=== PATIENT | female | born 1940 | race Caucasian/White ===

== ENCOUNTER 2016-02-26 16:57 | Inpatient (IN) | payer MEDICARE, BC ==
[2016-02-26] MEDS ORDERED: ASPIRIN 81 MG CHEW PO STA (17:21)
[2016-02-26] MEDS ORDERED: FUROSEMIDE 10 MG/ML 10 ML VIAL IV STA (17:21)
--- NOTE | 2016-02-26 17:30 | ED ---
General Adult HPI - General Chief complaint: Extremity Problem,Nontraumatic Stated complaint: congestive heart failure Time Seen by Provider: 02/26/16 17:15 Source: patient, RN notes reviewed Mode of arrival: EMS Limitations: physical limitation - History of Present Illness Initial comments: 76-year-old female presents to the emergency department with a chief complaint of bilateral lower extremity swelling. Patient has a history of congestive heart failure. Patient has had increased swelling to the bilateral lower extremities as well as the abdomen. Over the last 23 days she has gained about 6-7 pounds. She states that she is chronically short of breath and she does not feel more short of breath than normal. The patient denies any fever or chills. Patient states that she stopped taking her Coumadin but other than that she's been taking all the medications as prescribed. Patient states that she was concerned due to the continued symptoms and the leaking so her doctor came over and referred her to the ER. Patient states that this time she has no chest pain but she did have some earlier today. Patient states that there is no other symptoms in the patient.Patient denies any recent fever, chills,back pain, abdominal pain, nausea vomiting, numbness or tingling, dysuria or hematuria, constipation or diarrhea, headaches or visual changes, or any other current symptoms. - Related Data Allergies Allergy/AdvReac Type Severity Reaction Status Date / Time Penicillins Allergy Anaphylaxis Verified 02/26/16 19:01 Quinolones Allergy Nausea & Verified 02/26/16 19:01 Vomiting quinapril AdvReac Severe Unknown Verified 02/26/16 19:01 Review of Systems ROS Statement: Those systems with pertinent positive or pertinent negative responses have been documented in the HPI. ROS Other: All systems not noted in ROS Statement are negative. Past Medical History Past Medical History: Atrial Fibrillation, Heart Failure, Hyperlipidemia, Hypertension History of Any Multi-Drug Resistant Organisms: None Reported Past Surgical History: Cholecystectomy, Coronary Bypass/CABG, Tonsillectomy Additional Past Surgical History / Comment(s): aortic valve replacement Past Psychological History: No Psychological Hx Reported Smoking Status: Former smoker Past Alcohol Use History: None Reported Past Drug Use History: None Reported General Exam - General Exam Comments Initial Comments: General: The patient is awake and alert, in no distress, and does not appear acutely ill. Eye: Pupils are equal, round and reactive to light, extra-ocular movements are intact; there is normal conjunctiva bilaterally. No signs of icterus. Ears, nose, mouth and throat: There are moist mucous membranes and no oral lesions. Neck: The neck is supple, there is no tenderness. Cardiovascular: There is a regular rate and rhythm. No murmur, rub or gallop is appreciated. Respiratory: Lungs are clear to auscultation, respirations are non-labored, breath sounds are equal. No wheezes, stridor, rales, or rhonchi. Gastrointestinal: Pitting edema to the abdomen, non-distended, non-tender abdomen without masses or organomegaly noted. There is no rebound or guarding present. No CVA tenderness. Bowel sounds are unremarkable. Back: There is no tenderness to palpation in the midline. There is no obvious deformity. No rashes noted. Musculoskeletal: Normal ROM, no tenderness, patient has pitting edema to the bilateral lower x-rays. It is pretty multiple weeping sores. Concern for possible infection to the right lower extremity. Sensation intact. Pulses equal bilaterally 2+. Neurological: CN II-XII intact, There are no obvious motor or sensory deficits. Coordination appears grossly intact. Speech is normal. Skin: Skin is warm and dry and no rashes or lesions are noted. Psychiatric: Cooperative, appropriate mood & affect, normal judgment. 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 Patient was given Lasix here in the emergency department. The patient does appear to be CHF exacerbation. At this time we will admit the patient. We will continue Lasix for the patient. We will continue troponins overnight and place the patient nothing by mouth at midnight. This is discussed with the patient and family and they are in agreement with the plan. All their questions have been answered. This time she will be admitted to Dr. brown the case is discussed with Dr. Sales. - Lab Data Result diagrams: 02/26/16 17:10 02/26/16 17:10 Lab Results 01/02/26/16 02/26/16 Range/Units 17:10 17:10 17:10 WBC 3.9 (3.8-10.6) k/uL RBC 2.75 L (3.80-5.40) m/uL Hgb 8.2 L (11.4-16.0) gm/dL Hct 27.8 L (34.0-46.0) % MCV 101.2 H (80.0-100.0) fL MCH 29.8 (25.0-35.0) pg MCHC 29.5 L (31.0-37.0) g/dL RDW 17.7 H (11.5-15.5) % Plt Count 250 (150-450) k/uL Neutrophils % 70 % Lymphocytes % 15 % Monocytes % 9 % Eosinophils % 3 % Basophils % 1 % Neutrophils # 2.7 (1.3-7.7) k/uL Lymphocytes # 0.6 L (1.0-4.8) k/uL Monocytes # 0.4 (0-1.0) k/uL Eosinophils # 0.1 (0-0.7) k/uL Basophils # 0.1 (0-0.2) k/uL Hypochromasia Moderate Anisocytosis Slight Macrocytosis Moderate PT (9.0-12.0) sec INR (<1.1) APTT (22.0-30.0) sec Sodium 143 (137-145) mmol/L Potassium 5.3 H (3.5-5.1) mmol/L Chloride 110 H (98-107) mmol/L Carbon Dioxide 20 L (22-30) mmol/L Anion Gap 13 mmol/L BUN 30 H (7-17) mg/dL Creatinine 1.37 H (0.52-1.04) mg/dL Est GFR (MDRD) Af Amer 46 (>60 ml/min/1.73 sqM) Est GFR (MDRD) Non-Af 38 (>60 ml/min/1.73 sqM) Glucose 105 H (74-99) mg/dL Calcium 9.6 (8.4-10.2) mg/dL Magnesium 1.8 (1.6-2.3) mg/dL Total Bilirubin 0.9 (0.2-1.3) mg/dL AST 22 (14-36) U/L ALT 29 (9-52) U/L Alkaline Phosphatase 122 (38-126) U/L Total Creatine Kinase 52 (30-135) U/L CK-MB (CK-2) 2.6 H* (0.0-2.4) ng/mL CK-MB (CK-2) Rel Index 5.0 Troponin I 0.012 (0.000-0.034) ng/mL NT-Pro-B Natriuret Pep pg/mL Total Protein 7.6 (6.3-8.2) g/dL Albumin 3.8 (3.5-5.0) g/dL 02/26/16 02/26/16 Range/Units 17:10 17:10 WBC (3.8-10.6) k/uL RBC (3.80-5.40) m/uL Hgb (11.4-16.0) gm/dL Hct (34.0-46.0) % MCV (80.0-100.0) fL MCH (25.0-35.0) pg MCHC (31.0-37.0) g/dL RDW (11.5-15.5) % Plt Count (150-450) k/uL Neutrophils % % Lymphocytes % % Monocytes % % Eosinophils % % Basophils % % Neutrophils # (1.3-7.7) k/uL Lymphocytes # (1.0-4.8) k/uL Monocytes # (0-1.0) k/uL Eosinophils # (0-0.7) k/uL Basophils # (0-0.2) k/uL Hypochromasia Anisocytosis Macrocytosis PT 14.0 H (9.0-12.0) sec INR 1.4 (<1.1) APTT 34.3 H (22.0-30.0) sec Sodium (137-145) mmol/L Potassium (3.5-5.1) mmol/L Chloride (98-107) mmol/L Carbon Dioxide (22-30) mmol/L Anion Gap mmol/L BUN (7-17) mg/dL Creatinine (0.52-1.04) mg/dL Est GFR (MDRD) Af Amer (>60 ml/min/1.73 sqM) Est GFR (MDRD) Non-Af (>60 ml/min/1.73 sqM) Glucose (74-99) mg/dL Calcium (8.4-10.2) mg/dL Magnesium (1.6-2.3) mg/dL Total Bilirubin (0.2-1.3) mg/dL AST (14-36) U/L ALT (9-52) U/L Alkaline Phosphatase (38-126) U/L Total Creatine Kinase (30-135) U/L CK-MB (CK-2) (0.0-2.4) ng/mL CK-MB (CK-2) Rel Index Troponin I (0.000-0.034) ng/mL NT-Pro-B Natriuret Pep 88101 pg/mL Total Protein (6.3-8.2) g/dL Albumin (3.5-5.0) g/dL - Radiology Data Radiology results: report reviewed, image reviewed Disposition Clinical Impression: CHF exacerbation, Chest pain, Hyperkalemia, Elevated serum creatinine Disposition: ADMITTED IP TO THIS [facility] Condition: Stable Time of Disposition: 19:02 Decision Date: 02/26/16 Decision Time: 19:02
[2016-02-26 17:37] LABS: Anisocytosis Slight; Basophils # (A) 0.1 k/uL (0-0.2); Basophils % (A) 1 %; CH 30.7; CHCM 30.6; Eosinophils # (A) 0.1 k/uL (0-0.7); Eosinophils % (A) 3 %; HCT 27.8 % (34.0-46.0); HGB 8.2 gm/dL (11.4-16.0); Hypochromasia Moderate; Luc # (Auto) 0.07; Luc % (Auto) 2; Lymphocytes # (A) 0.6 k/uL (1.0-4.8); Lymphocytes % (A) 15 %; MCH 29.8 pg (25.0-35.0); MCHC 29.5 g/dL (31.0-37.0); MCV 101.2 fL (80.0-100.0); Macrocytosis Moderate; Monocytes # (A) 0.4 k/uL (0-1.0); Monocytes % (A) 9 %; Neutrophils # (A) 2.7 k/uL (1.3-7.7); Neutrophils % (A) 70 %; RBC 2.75 m/uL (3.80-5.40); RDW 17.7 % (11.5-15.5); WBC 3.9 k/uL (3.8-10.6); WBC (Perox) 4.03
[2016-02-26 17:45] LABS: Calcium 9.6 mg/dL (8.4-10.2); Magnesium 1.8 mg/dL (1.6-2.3); Potassium 5.3 mmol/L (3.5-5.1); Total Bilirubin 0.9 mg/dL (0.2-1.3); Total Protein 7.6 g/dL (6.3-8.2)
[2016-02-26 17:54] LABS: INR 1.4 (<1.1); Partial Thromboplastin Time 34.3 sec (22.0-30.0)
[2016-02-26 18:10] LABS: Troponin I 0.012 ng/mL (0.000-0.034)
[2016-02-26 18:12] LABS: Creatine Kinase MB 2.6 ng/mL (0.0-2.4)
--- NOTE | 2016-02-26 19:05 | ED ---
Medical Decision Making - Medical Decision Making Patient is currently on Keflex for treatment of right lower extremity cellulitis. At this time we will we will continue the Keflex that she isn't placed on. - Lab Data Result diagrams: 02/26/16 17:10 02/26/16 17:10 Lab Results 02/26/16 02/26/16 02/26/16 Range/Units 17:10 17:10 17:10 WBC 3.9 (3.8-10.6) k/uL RBC 2.75 L (3.80-5.40) m/uL Hgb 8.2 L (11.4-16.0) gm/dL Hct 27.8 L (34.0-46.0) % MCV 101.2 H (80.0-100.0) fL MCH 29.8 (25.0-35.0) pg MCHC 29.5 L (31.0-37.0) g/dL RDW 17.7 H (11.5-15.5) % Plt Count 250 (150-450) k/uL Neutrophils % 70 % Lymphocytes % 15 % Monocytes % 9 % Eosinophils % 3 % Basophils % 1 % Neutrophils # 2.7 (1.3-7.7) k/uL Lymphocytes # 0.6 L (1.0-4.8) k/uL Monocytes # 0.4 (0-1.0) k/uL Eosinophils # 0.1 (0-0.7) k/uL Basophils # 0.1 (0-0.2) k/uL Hypochromasia Moderate Anisocytosis Slight Macrocytosis Moderate PT (9.0-12.0) sec INR (<1.1) APTT (22.0-30.0) sec Sodium 143 (137-145) mmol/L Potassium 5.3 H (3.5-5.1) mmol/L Chloride 110 H (98-107) mmol/L Carbon Dioxide 20 L (22-30) mmol/L Anion Gap 13 mmol/L BUN 30 H (7-17) mg/dL Creatinine 1.37 H (0.52-1.04) mg/dL Est GFR (MDRD) Af Amer 46 (>60 ml/min/1.73 sqM) Est GFR (MDRD) Non-Af 38 (>60 ml/min/1.73 sqM) Glucose 105 H (74-99) mg/dL Calcium 9.6 (8.4-10.2) mg/dL Magnesium 1.8 (1.6-2.3) mg/dL Total Bilirubin 0.9 (0.2-1.3) mg/dL AST 22 (14-36) U/L ALT 29 (9-52) U/L Alkaline Phosphatase 122 (38-126) U/L Total Creatine Kinase 52 (30-135) U/L CK-MB (CK-2) 2.6 H* (0.0-2.4) ng/mL CK-MB (CK-2) Rel Index 5.0 Troponin I 0.012 (0.000-0.034) ng/mL NT-Pro-B Natriuret Pep pg/mL Total Protein 7.6 (6.3-8.2) g/dL Albumin 3.8 (3.5-5.0) g/dL 02/26/16 02/26/16 Range/Units 17:10 17:10 WBC (3.8-10.6) k/uL RBC (3.80-5.40) m/uL Hgb (11.4-16.0) gm/dL Hct (34.0-46.0) % MCV (80.0-100.0) fL MCH (25.0-35.0) pg MCHC (31.0-37.0) g/dL RDW (11.5-15.5) % Plt Count (150-450) k/uL Neutrophils % % Lymphocytes % % Monocytes % % Eosinophils % % Basophils % % Neutrophils # (1.3-7.7) k/uL Lymphocytes # (1.0-4.8) k/uL Monocytes # (0-1.0) k/uL Eosinophils # (0-0.7) k/uL Basophils # (0-0.2) k/uL Hypochromasia Anisocytosis Macrocytosis PT 14.0 H (9.0-12.0) sec INR 1.4 (<1.1) APTT 34.3 H (22.0-30.0) sec Sodium (137-145) mmol/L Potassium (3.5-5.1) mmol/L Chloride (98-107) mmol/L Carbon Dioxide (22-30) mmol/L Anion Gap mmol/L BUN (7-17) mg/dL Creatinine (0.52-1.04) mg/dL Est GFR (MDRD) Af Amer (>60 ml/min/1.73 sqM) Est GFR (MDRD) Non-Af (>60 ml/min/1.73 sqM) Glucose (74-99) mg/dL Calcium (8.4-10.2) mg/dL Magnesium (1.6-2.3) mg/dL Total Bilirubin (0.2-1.3) mg/dL AST (14-36) U/L ALT (9-52) U/L Alkaline Phosphatase (38-126) U/L Total Creatine Kinase (30-135) U/L CK-MB (CK-2) (0.0-2.4) ng/mL CK-MB (CK-2) Rel Index Troponin I (0.000-0.034) ng/mL NT-Pro-B Natriuret Pep 07451 pg/mL Total Protein (6.3-8.2) g/dL Albumin (3.5-5.0) g/dL Disposition Clinical Impression: CHF exacerbation, Chest pain, Hyperkalemia, Elevated serum creatinine, Cellulitis of right lower extremity Disposition: ADMITTED IP TO THIS HOSP Condition: Stable Referrals: Evangelista Castañeda MD [Primary Care Provider] - 1-2 days
[2016-02-26 21:40] LABS: Glucose,Whole Blood 121 mg/dL (75-99)
[2016-02-26] MEDS: FUROSEMIDE 10 MG/ML 4 ML VIAL IV SCH (22:36)
[2016-02-26] MEDS: CARVEDILOL 12.5 MG TAB PO SCH (22:37)
[2016-02-26] MEDS: ATORVASTATIN 10 MG TAB PO SCH (22:37)
[2016-02-27] MEDS: WARFARIN 5 MG TAB PO SCH ×2 (00:01→17:28)
[2016-02-27 00:10] LABS: Creatine Kinase MB 2.1 ng/mL (0.0-2.4); Troponin I 0.014 ng/mL (0.000-0.034)
[2016-02-27] MEDS: CEPHALEXIN 500 MG CAP PO SCH ×5 (01:09→23:38)
[2016-02-27] MEDS: HEPARIN SODIUM,PORCINE 5,000 UNIT/ML 1 ML VIAL SQ SCH ×2 (01:09→09:43)
[2016-02-27 05:42] LABS: Glucose,Whole Blood 111 mg/dL (75-99)
[2016-02-27] MEDS: FUROSEMIDE 10 MG/ML 4 ML VIAL IV SCH ×2 (06:33→09:45)
[2016-02-27] MEDS: CARVEDILOL 12.5 MG TAB PO SCH ×2 (06:34→17:16)
[2016-02-27 07:34] LABS: Creatine Kinase MB 2.2 ng/mL (0.0-2.4); Troponin I <0.012 ng/mL (0.000-0.034)
--- NOTE | 2016-02-27 08:09 | P.GSCN ---
History of Present Illness History of present illness: 76 old white female, history of obesity, history of congestive heart failure, history of atrial fibrillation, history of diabetes, patient has been admitted with swelling of the both lower extremity and congestive heart failure patient has history of atrial fibrillation stop taking her Coumadin I was consulted patient has a superficial ulcer posterior aspect of the right pop lower leg and also there is a dry gangrene of the right big toe Medical history history of CHF atrial fibrillation hypertension patient diabetes mellitus On examination patient has a superobesity neck supple no bruit appreciated Chest few crackles at the lung bases first and second sound present Abdomen protuberant no peritoneal mass noted Vascular examination femorals are 1+ posterior tibial dorsal pedal not palpable but both feet are warm there is a dry scab noted on the right big toe and there is a superficial ulcer on the posterior S aspect of the right calf no discharge or redness noted Plan is Aquacel silver for the ulcer on the calf and patient has a dry scab on the big toe we will we will follow this patient to the wound clinic when she is discharged in the meantime we will continue with local wound care patient has been to the wound clinic in the past thank very much Past Medical History Past Medical History: Atrial Fibrillation, Heart Failure, Diabetes Mellitus, Hyperlipidemia, Hypertension, Osteoarthritis (OA) History of Any Multi-Drug Resistant Organisms: None Reported Past Surgical History: Cholecystectomy, Coronary Bypass/CABG, Tonsillectomy Additional Past Surgical History / Comment(s): aortic valve replacement Past Psychological History: No Psychological Hx Reported Smoking Status: Former smoker Past Alcohol Use History: None Reported Past Drug Use History: None Reported - Past Family History Father Family Medical History: Myocardial Infarction ([place]) Medications and Allergies Home Medications Medication Instructions Recorded Confirmed Type Allopurinol [Zyloprim] 300 mg PO DAILY 02/26/16 02/26/16 History Atorvastatin [Lipitor] 10 mg PO HS 02/26/16 02/26/16 History Carvedilol [Coreg] 12.5 mg PO BID 02/26/16 02/26/16 History Cephalexin [Keflex] 500 mg PO Q6HR 02/26/16 02/26/16 History Cholecalciferol [Vitamin D3] 1,000 unit PO DAILY 02/26/16 02/26/16 History Ferrous Sulfate [Feosol] 325 mg PO DAILY 01/18/17 01/18/17 History Lisinopril [Zestril] 5 mg PO DAILY 02/26/16 02/26/16 History Metolazone [Zaroxolyn] 2.5 mg PO Q48H 02/26/16 02/26/16 History [place]-3 Fatty Acids/Fish Oil [Fish 1 cap PO DAILY 02/26/16 02/26/16 History Oil 1,000 mg Softgel] Warfarin [Coumadin] 5 mg PO DAILY 02/26/16 02/26/16 History Allergies Allergy/AdvReac Type Severity Reaction Status Date / Time Penicillins Allergy Anaphylaxis Verified 02/26/16 19:01 Quinolones AdvReac Nausea & Verified 02/26/16 19:05 Vomiting Surgical - Exam Vital Signs Temp Pulse Resp BP Pulse Ox 97.1 F L 89 18 117/64 99 02/26/16 17:04 02/26/16 17:04 02/26/16 17:04 02/26/16 17:04 02/26/16 17:04 Results - Labs 02/26/16 17:10 02/26/16 17:10 Abnormal Lab Results - Last 24 Hours (Table) 02/26/16 02/27/16 Range/Units 21:38 05:41 POC Glucose (mg/dL) 121 H 111 H (75-99) mg/dL
[2016-02-27] MEDS ORDERED: METOLAZONE 2.5 MG TAB PO SCH (09:00)
[2016-02-27] MEDS ORDERED: NON-FORMULARY DRUG (Omega-3 Fatty Acids/Fish Oil [Fish Oil 1,000 Mg Softgel] 1 CAP) PO SCH (09:00)
[2016-02-27] MEDS: ALLOPURINOL 300 MG TAB PO SCH (09:43)
[2016-02-27] MEDS: FERROUS SULFATE 325 MG TAB PO SCH (09:43)
[2016-02-27] MEDS: LISINOPRIL 5 MG TAB PO SCH (09:43)
[2016-02-27] MEDS: CHOLECALCIFEROL 1,000 UNIT TAB PO SCH (09:44)
[2016-02-27 11:47] LABS: Glucose,Whole Blood 123 mg/dL (75-99)
[2016-02-27 17:19] LABS: Glucose,Whole Blood 116 mg/dL (75-99)
[2016-02-27] MEDS: FUROSEMIDE 10 MG/ML 10 ML VIAL IV SCH ×2 (17:25→17:32)
[2016-02-27] MEDS: ASPIRIN 325 MG TAB PO SCH (17:29)
--- NOTE | 2016-02-27 18:23 | HP ---
DATE OF ADMISSION: 02/26/2016 PRESENTING COMPLAINT: Edema of lower extremities. HISTORY OF PRESENTING COMPLAINT: This is a very pleasant 76-year-old patient of Dr. Castañeda whose chronic stable medical conditions include atrial fibrillation, diabetes, hypertension, hyperlipidemia, osteoarthritis. Patient normally uses a cart to get around. Patient presented with increasing swelling and leakage, she says, of both lower extremities. Breathing is relatively stable. She also noticed an ulcer on the right toe for about a week; has some pain. Some shortness of breath is present. Patient also has a history of congestive heart failure. Denies any cough. Some shortness of breath. REVIEW OF SYSTEMS: CONSTITUTIONAL: Tired. HEENT: None. RESPIRATORY: Some shortness of breath. CARDIOVASCULAR: As above. GASTROINTESTINAL: None. GENITOURINARY: None. MUSCULOSKELETAL: Aches and pains in the joints. DERMATOLOGICAL: Ulcer on the right lower extremity. LYMPHATICS: None. PSYCHIATRY: None. NEUROLOGICAL: None. PAST MEDICAL HISTORY: 1. Atrial fibrillation. 2. Congestive heart failure. 3. Diabetes. 4. Hypertension. 5. Hyperlipidemia. 6. Osteoarthritis. PAST SURGICAL HISTORY: 1. Cholecystectomy. 2. Coronary artery bypass. 3. Tonsillectomy. 4. Aortic valve replacement. SOCIAL HISTORY: Patient is an ex-smoker. . No significant alcohol. Lives with her . FAMILY HISTORY: Myocardial infarction. HOME MEDICATIONS: 1. Coumadin 5 mg p.o. daily. 2. Fish oil 1000 mg 1 capsule p.o. daily. 3. Zaroxolyn 2.5 p.o. q.48 hours. 4. Zestril 5 mg p.o. daily. 5. Iron 325 p.o. daily. 6. Vitamin D3 1000 units p.o. daily. 7. Keflex 500 mg q.6. 8. Coreg 12.5 p.o. b.i.d. 9. Lipitor 10 mg p.o. at bedtime. 10. Allopurinol 300 mg p.o. daily. ALLERGIES: 1. PENICILLIN. 2. QUINOLONES. PHYSICAL EXAMINATION: VITAL SIGNS ON PRESENTATION: Temperature 97.1, pulse 89, respiration 18, blood pressure 117/64, pulse ox 99% on room air. GENERAL APPEARANCE: Obese; BMI of 49.5. Lying in bed. Tired-appearing. EYES: Pupils equal. Conjunctivae normal. HEENT: External appearance of nose and ears normal. Oral cavity normal. NECK: Short, thick. JVD unable to assess. Mass not palpable. RESPIRATORY: Effort increased. LUNGS: Distant breath sounds. CARDIOVASCULAR: Heart sounds irregular. Edema present. ABDOMEN: Distended, soft. Liver and spleen not palpable. LYMPHATIC: No lymph node palpable in neck or axillae. PSYCHIATRY: Alert and oriented x3. Mood and affect normal. NEUROLOGICAL: Pupils equal. Cranial nerves grossly intact. INVESTIGATIONS: White count 3.9, hemoglobin 8.2. INR 1.4. Potassium 5.3. BUN 30, creatinine 1.37. ProBNP 12,900. Chest x-ray reviewed by me shows some pulmonary edema. ASSESSMENT: 1. Acute on chronic congestive heart failure; ejection fraction not known. 2. Persistent atrial fibrillation, rate controlled. 3. Coumadin monitoring for therapeutic level. 4. Morbid obesity; body mass index of 49.5. 5. Diabetes mellitus, type 2, though I do not see any oral hypoglycemic. 6. Hyperlipidemia. 7. Essential hypertension. 8. Medical debility. Patient uses a cart to get about. 9. Right lower extremity ulcer on admission. Could be venous. 10. Renal failure; could be chronic. Cannot rule out an acute component. PLAN: Patient was put on IV diuretics. Cardiology was consulted. Two-D echocardiogram was ordered. For renal function will repeat patient's electrolytes in the morning, send off a UA and do a renal ultrasound. Dr. Copeland was consulted to evaluate the ulcer. Care was discussed with the patient. Overall prognosis is guarded.
--- NOTE | 2016-02-27 19:59 | US ---
EXAMINATION TYPE: US kidneys/renal and bladder DATE OF EXAM: 02/27/2016 4:33 PM COMPARISON: NONE CLINICAL HISTORY: renal failure, obese patient. EXAM MEASUREMENTS: Right Kidney: 9.6 x 4.4 x 4.6 cm Left Kidney: 9.0 3.8 x 4.4cm ANATOMY: Body habitus/technically difficult study Right Kidney: No hydronephrosis or masses seen Left Kidney: very limited view due to depth, inferior pole obscured by bowel gas Bladder: not fully distended, appears wnl There is no evidence for hydronephrosis at this point in time. No nephrolithiasis is seen. No daniel s are identified. The urinary bladder is anechoic. Bilateral ureteral jets are seen. IMPRESSION: NEGATIVE FOR OBSTRUCTIVE UROPATHY.
[2016-02-27 20:01] LABS: Glucose,Whole Blood 123 mg/dL (75-99)
[2016-02-27] MEDS: ATORVASTATIN 10 MG TAB PO SCH (20:46)
[2016-02-28 06:22] LABS: Glucose,Whole Blood 117 mg/dL (75-99)
[2016-02-28] MEDS: CARVEDILOL 12.5 MG TAB PO SCH ×2 (06:40→17:34)
[2016-02-28] MEDS: CEPHALEXIN 500 MG CAP PO SCH ×3 (06:41→17:33)
[2016-02-28 06:46] LABS: INR 1.5 (<1.1); Prothrombin Time 15.1 sec (9.0-12.0)
[2016-02-28 06:55] LABS: Calcium 9.6 mg/dL (8.4-10.2)
[2016-02-28 06:57] LABS: Potassium 5.5 mmol/L (3.5-5.1)
[2016-02-28] MEDS: FUROSEMIDE 10 MG/ML 10 ML VIAL IV SCH (07:59)
[2016-02-28] MEDS: FERROUS SULFATE 325 MG TAB PO SCH (08:00)
[2016-02-28] MEDS: LISINOPRIL 5 MG TAB PO SCH (08:00)
[2016-02-28] MEDS: ALLOPURINOL 300 MG TAB PO SCH (08:00)
[2016-02-28] MEDS: CHOLECALCIFEROL 1,000 UNIT TAB PO SCH (08:00)
[2016-02-28] MEDS: ASPIRIN 325 MG TAB PO SCH (08:00)
--- NOTE | 2016-02-28 10:10 | P.NPCON ---
History of Present Illness - Reason for Consult acute renal failure - History of Present Illness Reason for consultation: Acute kidney injury History of present illness: Patient is a 76-year-old female seen in renal consultation for acute kidney injury. Unclear as to what her baseline renal function is. Creatinine was 1.37 yesterday and is mildly improved to 1.3 today. She is currently maintained on Lasix 60 mg IV every 8 hours. Admits to good urine output. Appetite is good. No vomiting or diarrhea. She presented with worsening edema in her lower extremities as well as dyspnea. Overall improved since admission. Denies regular use of NSAIDs at home. Denies any hematuria or dysuria.Denies any family history of renal disease. She does have history of congestive heart failure with an unknown ejection fraction at this time. No other complaints at this time. Vital signs are stable. General: The patient appeared well nourished and normally developed. HEENT: Head exam is unremarkable. Neck is without jugular venous distension. LUNGS: Lungs are clear to auscultation and percussion. Breath sounds decreased. HEART: Rate and Rhythm are regular. First and second heart sounds normal. No murmurs, rubs or gallops. ABDOMEN: Abdominal exam reveals normal bowel sounds. Non-tender and non- distended. No evidence of peritonitis. EXTREMITITES: Wound dressing with no obvious drainage. 1+ pitting edema. Past Medical History Past Medical History: Atrial Fibrillation, Heart Failure, Diabetes Mellitus, Hyperlipidemia, Hypertension, Osteoarthritis (OA) History of Any Multi-Drug Resistant Organisms: None Reported Past Surgical History: Cholecystectomy, Coronary Bypass/CABG, Tonsillectomy Additional Past Surgical History / Comment(s): aortic valve replacement Past Psychological History: No Psychological Hx Reported Smoking Status: Former smoker Past Alcohol Use History: None Reported Past Drug Use History: None Reported - Past Family History Father Family Medical History: Myocardial Infarction ([place]) Medications and Allergies Home Medications Medication Instructions Recorded Confirmed Type Allopurinol [Zyloprim] 300 mg PO DAILY 02/26/16 02/26/16 History Atorvastatin [Lipitor] 10 mg PO HS 02/26/16 02/26/16 History Carvedilol [Coreg] 12.5 mg PO BID 02/26/16 02/26/16 History Cephalexin [Keflex] 500 mg PO Q6HR 02/26/16 02/26/16 History Cholecalciferol [Vitamin D3] 1,000 unit PO DAILY 02/26/16 02/26/16 History Ferrous Sulfate [Feosol] 325 mg PO DAILY 02/26/16 02/26/16 History Lisinopril [Zestril] 5 mg PO DAILY 02/26/16 02/26/16 History Metolazone [Zaroxolyn] 2.5 mg PO Q48H 02/26/16 02/26/16 History [place]-3 Fatty Acids/Fish Oil [Fish 1 cap PO DAILY 02/26/16 02/26/16 History Oil 1,000 mg Softgel] Warfarin [Coumadin] 5 mg PO DAILY 02/26/16 02/26/16 History Allergies Allergy/AdvReac Type Severity Reaction Status Date / Time Penicillins Allergy Anaphylaxis Verified 02/26/16 19:01 Quinolones AdvReac Nausea & Verified 02/26/16 19:05 Vomiting Physical Exam Vitals: Vital Signs Temp Pulse Pulse Resp BP Pulse Ox 02/28/16 07:55 97 F L 71 16 116/62 97 02/28/16 04:00 97 F L 95 18 113/68 94 L 02/28/16 00:00 97.4 F L 87 16 122/71 100 02/27/16 20:38 97.1 F L 84 16 125/71 96 02/27/16 18:10 85 89 19 125/71 94 L 02/27/16 12:00 85 18 117/68 93 L Intake and Output 02/27/16 02/28/16 02/28/16 22:59 06:59 14:59 Intake Total 220 200 Output Total 1000 800 Balance -780 -600 Intake: Oral 220 200 Output: Urine 1000 800 Other: Voiding Method Bedside Commode Bedside Commode Diaper Diaper Weight 139 kg 138 kg Results - Lab Results Most recent lab results Calcium 9.6 mg/dL (8.4-10.2) 02/28/16 06:18 Magnesium 1.8 mg/dL (1.6-2.3) 02/26/16 17:10 02/26/16 17:10 02/28/16 06:18 Assessment and Plan Plan: Assessment: #1. Nonoliguric acute kidney injury secondary to cardiorenal syndrome. Renal function mildly improved with creatinine down to 1.3 today. Unclear as to what her baseline renal function is. No evidence of hydronephrosis noted on renal ultrasound. #2. Mild hyperkalemia. Sample was hemolyzed. Renal failure and metabolic acidosis of contributing factors. #3. Metabolic acidosis secondary to acute kidney injury. #4. Morbid obesity. #5. Congestive heart failure. Unknown ejection fraction. #6. Right lower extremity ulcer. #7. Anemia. Rule out iron deficiency. Plan: Continue Lasix 60 mg IV every 8 hours. Follow-up echocardiogram results. Check iron studies. Check urinalysis. Start oral sodium bicarbonate supplementation. Repeat electrolytes in the morning. Check potassium level at 6 PM today. Low potassium diet. Thank you for the consultation. I will continue to follow the patient with you during her hospital stay.
[2016-02-28] MEDS ORDERED: HEPARIN SODIUM,PORCINE 5,000 UNIT/ML 1 ML VIAL IV ONE (11:20)
[2016-02-28] MEDS ORDERED: HEPARIN SODIUM,PORCINE 5,000 UNIT/ML 1 ML VIAL IV PRN (11:20)
--- NOTE | 2016-02-28 11:20 | P.CRDCN ---
History of Present Illness Consult date: 02/28/16 Requesting physician: Konrad Salas Consult reason: shortness of breath Chief complaint: Shortness of breath and bilateral leg swelling History of present illness: This is a 76-year-old female with history of hypertension, hyperlipidemia, diabetes, renal failure, morbid obesity, chronic persistent atrial fibrillation, bilateral lower extremity ulcers, anemia, prior metallic aortic valve replacement, which patient states was performed in 2011 at [facility]. Her melting operator is Dr. Romero. Patient presented to the hospital with symptoms of increased swelling in her bilateral lower extremities with evidence of drainage from her legs, as well as ulcerations. She states that she has also been short of breath, positive PND and orthopnea. Patient has had recent admissions to [facility] and [facility] according to her, for the same reasons. Chest x-ray on admission here shows congestive cardiac failure. EKG atrial fibrillation with nonspecific ST-T wave changes. Laboratory data reviewed, hemoglobin 8.2, INR 1.4, potassium 5.3 on admission, 5.5 this morning, BUN 30 and 1.3 creatinine on admission, 30 and 1.3 this morning. Troponins 0.012, 0.014, 0.012. BNP level 12,900. Dig level 0.4. Mag level 1.8. At the time of my examination this morning, patient is sitting up in chair at bedside. Continues to have significant bilateral peripheral edema and weeping of bilateral lower extremities. According to the patient, she was told to hold her Coumadin after release from [facility], therefore she states she has not been taking it for approximately one week. We will start the patient on IV heparin. We'll discontinue the IV Lasix and start the patient on a Lasix drip. Obtain echocardiogram with Doppler study Past Medical History Past Medical History: Atrial Fibrillation, Heart Failure, Diabetes Mellitus, Hyperlipidemia, Hypertension, Osteoarthritis (OA) History of Any Multi-Drug Resistant Organisms: None Reported Past Surgical History: Cholecystectomy, Tonsillectomy Additional Past Surgical History / Comment(s): aortic valve replacement Past Psychological History: No Psychological Hx Reported Smoking Status: Former smoker Past Alcohol Use History: None Reported Past Drug Use History: None Reported - Past Family History Father Family Medical History: Myocardial Infarction ([place]) Medications and Allergies Home Medications Medication Instructions Recorded Confirmed Type Allopurinol [Zyloprim] 300 mg PO DAILY 02/26/16 02/26/16 History Atorvastatin [Lipitor] 10 mg PO HS 02/26/16 02/26/16 History Carvedilol [Coreg] 12.5 mg PO BID 02/26/16 02/26/16 History Cephalexin [Keflex] 500 mg PO Q6HR 02/26/16 02/26/16 History Cholecalciferol [Vitamin D3] 1,000 unit PO DAILY 02/26/16 02/26/16 History Ferrous Sulfate [Feosol] 325 mg PO DAILY 02/26/16 02/26/16 History Lisinopril [Zestril] 5 mg PO DAILY 02/26/16 02/26/16 History Metolazone [Zaroxolyn] 2.5 mg PO Q48H 02/26/16 02/26/16 History [place]-3 Fatty Acids/Fish Oil [Fish 1 cap PO DAILY 02/26/16 02/26/16 History Oil 1,000 mg Softgel] Warfarin [Coumadin] 5 mg PO DAILY 02/26/16 02/26/16 History Allergies Allergy/AdvReac Type Severity Reaction Status Date / Time Penicillins Allergy Anaphylaxis Verified 02/26/16 19:01 Quinolones AdvReac Nausea & Verified 02/26/16 19:05 Vomiting Physical Exam Vitals: Vital Signs Temp Pulse Pulse Resp BP Pulse Ox 02/28/16 07:55 97 F L 71 16 116/62 97 02/28/16 04:00 97 F L 95 18 113/68 94 L 02/28/16 00:00 97.4 F L 87 16 122/71 100 02/27/16 20:38 97.1 F L 84 16 125/71 96 02/27/16 18:10 85 89 19 125/71 94 L 02/27/16 12:00 85 18 117/68 93 L Intake and Output 02/27/16 02/28/16 02/28/16 22:59 06:59 14:59 Intake Total 220 200 Output Total 1000 800 200 Balance -780 -600 -200 Intake: Oral 220 200 Output: Urine 1000 800 200 Other: Voiding Method Bedside Commode Bedside Commode Diaper Diaper Weight 139 kg 138 kg PHYSICAL EXAMINATION: HEENT: Head is atraumatic, normocephalic. Pupils equal, round. Neck is supple. There is elevated jugular venous pressure. HEART EXAMINATION: Heart S1-S2 irregularly irregular systolic murmur is heard. CHEST EXAMINATION: His reveal diminished air entry to bilateral bases. ABDOMEN: Soft, B's, nontender. Bowel sounds are heard. No organomegaly noted. EXTREMITIES: Doppler peripheral pulses with 2-3+ peripheral edema and no calf tenderness noted. Bilateral ulcerations, erythema noted. NEUROLOGIC patient is awake, alert and oriented -3. . Results 02/26/16 17:10 02/28/16 06:18 Coagulation 02/28/16 Range/Units 06:18 PT 15.1 H (9.0-12.0) sec Comprehensive Metabolic Panel 02/28/16 Range/Units 06:18 Sodium 142 (137-145) mmol/L Potassium 5.5 H (3.5-5.1) mmol/L Chloride 110 H (98-107) mmol/L Carbon Dioxide 18 L (22-30) mmol/L BUN 30 H (7-17) mg/dL Creatinine 1.30 H (0.52-1.04) mg/dL Glucose 111 H (74-99) mg/dL Calcium 9.6 (8.4-10.2) mg/dL Current Medications Generic Name Dose Route Start Last Admin Trade Name Freq PRN Reason Stop Dose Admin Acetaminophen/Codeine Phosphate 1 each 02/26/16 22:12 Tylenol #3 PO Q6HR PRN Pain Allopurinol 300 mg 02/27/16 09:00 02/28/16 08:00 Zyloprim PO 300 mg DAILY MIK Administration Aspirin 81 mg 02/29/16 09:00 Aspirin PO DAILY [facility] Atorvastatin Calcium 10 mg 02/26/16 21:00 02/27/16 20:46 Lipitor PO 10 mg HS MIK Administration Carvedilol 12.5 mg 02/26/16 20:00 02/28/16 06:40 Coreg PO 12.5 mg AC-BID MIK Administration Cephalexin 500 mg 02/27/16 00:00 02/28/16 06:41 Keflex PO 500 mg Q6HR MIK Administration Cholecalciferol 1,000 unit 02/27/16 09:00 02/28/16 08:00 Vitamin D3 PO 1,000 unit DAILY MIK Administration Ferrous Sulfate 325 mg 02/27/16 09:00 02/28/16 08:00 Feosol PO 325 mg DAILY MIK Administration Furosemide 60 mg 02/27/16 16:00 02/28/16 07:59 Lasix IV 60 mg Q8HR MIK Administration Sodium Chloride 10 ml 02/26/16 21:00 02/28/16 08:00 Saline Flush IV 10 ml BID MIK Administration Warfarin Sodium 5 mg 02/26/16 22:15 02/27/16 17:28 Coumadin PO 5 mg DAILY@1800 MIK Administration Intake and Output 02/27/16 02/28/16 02/28/16 22:59 06:59 14:59 Intake Total 220 200 Output Total 1000 800 200 Balance -780 -600 -200 Intake: Oral 220 200 Output: Urine 1000 800 200 Other: Voiding Method Bedside Commode Bedside Commode Diaper Diaper Weight 139 kg 138 kg 02/28/16 06:18 EKG Interpretations (text) ST-T wave changes and right bundle branch block pattern. Assessment and Plan Plan: Assessment and plan #1 congestive cardiac failure, systolic acute on chronic discontinue IV push Lasix and start the patient on a Lasix drip. Echocardiogram with Doppler study which was performed in October at [facility] revealed an ejection fraction of 35%, normally functioning bioprosthetic aortic valve and mild degree of mitral regurgitation. #2 history of metallic aortic valve replacement, on Coumadin, patient is not taking Coumadin for the past 7 days, INR subtherapeutic at 1.4. #3 chronic persistent atrial fibrillation #4 hypertension #5 diabetes #6 hyperlipidemia #7 bilateral leg and feet ulcerations #8 sleep apnea #9 obesity #10 non-Hodgkin's lymphoma #11 chronic anemia Plan We'll discontinue the IV push Lasix and start the patient on a Lasix drip. Her intake and output along with daily weights and daily lytes BUN and creatinine closely. We will also start patient on IV heparin until her Coumadin becomes therapeutic, continue Coumadin 5 mg daily. Repeat an echocardiogram study here. Further recommendations to follow. DNP note has been reviewed, I agree with a documented findings and plan of care. Patient was seen and examined.
[2016-02-28 11:55] LABS: Glucose,Whole Blood 125 mg/dL (75-99)
--- NOTE | 2016-02-28 12:10 | ECHOF ---
Referral Reason:chf MEASUREMENTS -------- HEIGHT: 167.6 cm WEIGHT: 138.8 kg BP: 117/68 RVIDd: 3.9 cm (< 3.3) IVSd: 1.4 cm (0.6 - 1.1) LVIDd: 4.8 cm (3.9 - 5.3) LVPWd: 1.5 cm (0.6 - 1.1) IVSs: 1.5 cm LVIDs: 4.4 cm LVPWs: 1.8 cm LA Diam: 5.1 cm (2.7 - 3.8) Ao Diam: 2.8 cm (2.0 - 3.7) MV EXCURSION: 15.618 mm (> 18.000) MV EF SLOPE: 69 mm/s (70 - 150) EPSS: 1.5 cm AV maxP.07 mmHg AV meanP.59 mmHg RAP: 5.00 mmHg RVSP: 52.08 mmHg FINDINGS -------- Sinus rhythm. This was a technically difficult study with suboptimal apical views. The left ventricular size is normal. There is moderate concentric left ventricular hypertrophy. Overall left ventricular systolic function is mildly impaired with, an EF between 45 - 50 %. Atypical septal wall motion The right ventricle is mild to moderately enlarged. The left atrium is markedly dilated. The right atrium was not well visualized. 1.5mg of Definity was utilized for enhancement of images Peak/mean gradient across the Aortic Valve is 24.07mmHg / 11.59mmHg. Normal porcine bioprosthetic aortic valve. There is mild regurgitation of the bioprosthetic aortic valve. The mitral valve leaflets are mild to moderately thickened. Moderate mitral annular calcification present. Llpqzohl-cx-iuxtrx mitral regurgitation is present. The peak and mean MV gradients are 16.03mmHg 4.38mmHg as measured by doppler. Mild mitral stenosis. Smkq-lj-gkxmytiy tricuspid regurgitation present. There is moderate pulmonary hypertension. The right ventricular systolic pressure, as measured by Doppler, is 52.08mmHg. Moderate pulmonic regurgitation. The aortic root size is normal. There is no pericardial effusion. CONCLUSIONS -------- 1. Sinus rhythm. 2. 1.5mg of Definity was utilized for enhancement of images 3. Peak/mean gradient across the Aortic Valve is 24.07mmHg / 11.59mmHg. 4. Normal porcine bioprosthetic aortic valve. 5. There is mild regurgitation of the bioprosthetic aortic valve. 6. The mitral valve leaflets are mild to moderately thickened. 7. Moderate mitral annular calcification present. 8. Dbubwlou-rf-ptiqwe mitral regurgitation is present. 9. The peak and mean MV gradients are 16.03mmHg 4.38mmHg as measured by doppler. 10. Mild mitral stenosis. 11. Wkvr-ju-heazrssl tricuspid regurgitation present. 12. This was a technically difficult study with suboptimal apical views. 13. There is moderate pulmonary hypertension. 14. The right ventricular systolic pressure, as measured by Doppler, is 52.08mmHg. 15. Moderate pulmonic regurgitation. 16. The aortic root size is normal. 17. There is no pericardial effusion. 18. The left ventricular size is normal. 19. There is moderate concentric left ventricular hypertrophy. 20. Overall left ventricular systolic function is mildly impaired with, an EF between 45 - 50 %. 21. Atypical septal wall motion 22. The right ventricle is mild to moderately enlarged. 23. The left atrium is markedly dilated. 24. The right atrium was not well visualized. PLUG OVERWRAP MACHINE TENDER: Marina Hackett RDCS
[2016-02-28 13:02] LABS: Anisocytosis Slight; Basophils % (A) 1 %; CH 30.2; CHCM 28.5; Eosinophils # (A) 0.1 k/uL (0-0.7); Eosinophils % (A) 2 %; HDW 2.76; HGB 8.3 gm/dL (11.4-16.0); Hypochromasia Marked; Luc # (Auto) 0.07; Luc % (Auto) 2; Lymphocytes # (A) 0.5 k/uL (1.0-4.8); Lymphocytes % (A) 15 %; MCH 30.5 pg (25.0-35.0); MCHC 28.6 g/dL (31.0-37.0); Macrocytosis Marked; Mean Platelet Volume 9.2; Monocytes # (A) 0.3 k/uL (0-1.0); Monocytes % (A) 9 %; Neutrophils # (A) 2.2 k/uL (1.3-7.7); Neutrophils % (A) 70 %; RBC 2.71 m/uL (3.80-5.40); RDW 17.8 % (11.5-15.5); WBC 3.2 k/uL (3.8-10.6); WBC (Perox) 3.21
[2016-02-28 13:03] LABS: MCV 106.9 fL (80.0-100.0)
[2016-02-28] MEDS: FUROSEMIDE 250 MG in SODIUM CHLORIDE 0.9% 225 ML IVP SCH (13:17)
[2016-02-28] MEDS: HEPARIN SODIUM,PORCINE/D5W PMX 25,000 UNIT in DEXTROSE/WATER 1 500ML.BAG IV SCH (13:17)
[2016-02-28 15:41] LABS: % Iron Saturation 16.6 % (20-50)
--- NOTE | 2016-02-28 16:04 | CDI ---
In responding to this query, please exercise your independent professional judgment. The [facility] Coding Staff and Clinical Documentation Specialists appreciate your assistance in clarifying documentation, maintaining compliance with coding guidelines, accurately documenting patients condition and capturing severity of illness. The fact that a question is asked does not imply that any particular answer is desired or expected. Communication forms are a method of clarifying documentation and are not made part of the Legal Health Record. Thank you in advance for your clarification. Last Revision, December 2014 Ileana Oconnell [address] [facility] [address] Documentation Clarification Form Date: 02/28/2016 3:53:00 PM From: Lizz Dave Admit Date: 02/26/2016 7:02:00 PM Patient Name: Alicja Naranjo Visit Number: [id number] Discharge Date: Dr. Edward Love: 76 yo female, admitted in Acute renal failure. Per Nephrology consult: ERIC, Cr 1.37, unknown baseline. Dx: Nonoliguric ERIC secondary to cardiorenal syndrome. Per History & Physical: Renal failure, could be chronic. Clinical Indicators: BUN: 30, Cr 1.37, 1.30; GFR 38, 40. Unknown baseline. Treatment: IV Lasix push, changed to drip; IV Lasix. In order to capture the severity of condition, please clarify if the condition signifies: CKD Stage 1 (GFR > 90) CKD Stage 2 (GFR 60-89) CKD Stage 3 (GFR 30-59) CKD Stage 4 (GFR 15-29) CKD Stage 5 (GFR <15) ESRD Unable to determine Other condition, please specify Please document in your progress notes and discharge summary in order to capture severity of illness and risk of mortality. Include clinical findings that support your diagnosis. FYI: Press F11 to launch patient chart. Place X here if this finding has no clinical significance, is not applicable or if you are not able to provide any additional documentation. Thank You. MICHAEL
[2016-02-28 17:03] LABS: Glucose,Whole Blood 179 mg/dL (75-99)
[2016-02-28] MEDS: WARFARIN 5 MG TAB PO SCH (17:35)
[2016-02-28] MEDS: INSULIN LISPRO (humaLOG) 300 UNIT/3 ML VIAL SQ SCH ×2 (18:31→21:37)
[2016-02-28 18:38] LABS: Hemoglobin A1C 6.1 % (4.2-6.1)
[2016-02-28 21:18] LABS: Glucose,Whole Blood 117 mg/dL (75-99)
[2016-02-28] MEDS: ATORVASTATIN 10 MG TAB PO SCH (21:38)
[2016-02-28 22:36] LABS: Appearance,Urine Clear (Clear); Bilirubin,Urine Negative (Negative); Glucose,Urine (UA) Negative (Negative); Ketones,Urine Negative (Negative); Leukocyte Esterase,Urine Negative (Negative); Nitrite,Urine Negative (Negative); Protein,Urine Negative (Negative); Specific Gravity,Urine 1.007 (1.001-1.035); UA Billing (MACRO vs. MICRO) CHEM; Urobilinogen,Urine <2.0 mg/dL (<2.0)
[2016-02-29] MEDS: CEPHALEXIN 500 MG CAP PO SCH ×5 (00:03→23:31)
[2016-02-29 06:34] LABS: Glucose,Whole Blood 99 mg/dL (75-99)
[2016-02-29] MEDS: INSULIN LISPRO (humaLOG) 300 UNIT/3 ML VIAL SQ SCH ×4 (06:44→22:34)
[2016-02-29 06:47] LABS: Anisocytosis Slight; Basophils % (A) 0 %; CH 30.2; CHCM 29.8; Eosinophils # (A) 0.1 k/uL (0-0.7); Eosinophils % (A) 3 %; HCT 25.6 % (34.0-46.0); HDW 2.71; HGB 7.8 gm/dL (11.4-16.0); Hypochromasia Marked; Luc % (Auto) 3; Lymphocytes # (A) 0.6 k/uL (1.0-4.8); Lymphocytes % (A) 19 %; MCHC 30.4 g/dL (31.0-37.0); MCV 102.2 fL (80.0-100.0); Macrocytosis Moderate; Mean Platelet Volume 7.9; Monocytes # (A) 0.2 k/uL (0-1.0); Monocytes % (A) 8 %; Neutrophils % (A) 67 %; RDW 17.3 % (11.5-15.5); WBC 3.1 k/uL (3.8-10.6); WBC (Perox) 3.15
[2016-02-29 06:55] LABS: INR 1.6 (<1.1); Partial Thromboplastin Time 54.1 sec (22.0-30.0); Prothrombin Time 15.5 sec (9.0-12.0)
[2016-02-29] MEDS: CARVEDILOL 12.5 MG TAB PO SCH ×2 (06:55→17:11)
[2016-02-29 06:57] LABS: Calcium 9.3 mg/dL (8.4-10.2); Potassium 4.6 mmol/L (3.5-5.1)
--- NOTE | 2016-02-29 08:31 | P.PN ---
Subjective Principal diagnosis: Alicja here for CHF exacerbation. Renal function stable. improved SOB and edema per her. Objective - Vital Signs Vital signs: Vital Signs Temp 97 F L 02/29/16 04:00 Pulse 85 02/29/16 04:00 Resp 16 02/29/16 04:00 BP 132/58 02/29/16 04:00 Pulse Ox 96 02/29/16 04:00 Intake & Output 02/28/16 02/29/16 02/29/16 18:59 06:59 18:59 Intake Total 59.279 170.973 60 Output Total 500 1450 Balance -440.721 -1279.027 60 Weight 136.3 kg Intake: IV 60 60 Furosemide 250 mg In 60 60 Sodium Chloride 0.9% 225 ml @ 10 MG/HR 10 mls/hr IVP .Q24H MIK Rx#: [id number] Intake, IV Titration 59.279 110.973 Amount Heparin Sodium,Porcine/ 59.279 110.973 D5w Pmx 25,000 unit In Dextrose/Water 1 500ml. bag @ 7.2 UNITS/KG/HR 19. 87 mls/hr IV .Q24H MIK Rx #:[id number] Output: Urine 500 1450 Other: Voiding Method Bedside Commode Diaper - Constitutional General appearance: Present: cooperative, no acute distress - Respiratory Respiratory: bilateral: CTA - Cardiovascular Rhythm: regular Heart sounds: normal: S1, S2 Abnormal Heart Sounds: Present: systolic murmur - Peripheral edema leg Peripheral Edema: bilateral: 2+ - Gastrointestinal General gastrointestinal: Present: normal bowel sounds, soft - Labs CBC & Chem 7: 02/29/16 06:20 02/29/16 06:20 Labs: Abnormal Lab Results - Last 24 Hours (Table) 02/28/16 02/28/16 02/28/16 Range/Units 06:18 11:20 11:54 WBC 3.2 L (3.8-10.6) k/uL RBC 2.71 L (3.80-5.40) m/uL Hgb 8.3 L (11.4-16.0) gm/dL Hct 29.0 L (34.0-46.0) % MCV 106.9 H D (80.0-100.0) fL MCHC 28.6 L (31.0-37.0) g/dL RDW 17.8 H (11.5-15.5) % Lymphocytes # 0.5 L (1.0-4.8) k/uL PT (9.0-12.0) sec APTT (22.0-30.0) sec Chloride (98-107) mmol/L Carbon Dioxide (22-30) mmol/L BUN (7-17) mg/dL Creatinine (0.52-1.04) mg/dL Glucose (74-99) mg/dL POC Glucose (mg/dL) 125 H (75-99) mg/dL % Saturation 16.6 L (20-50) % 02/28/16 02/28/16 02/28/16 Range/Units 14:20 15:42 17:01 WBC (3.8-10.6) k/uL RBC (3.80-5.40) m/uL Hgb (11.4-16.0) gm/dL Hct (34.0-46.0) % MCV (80.0-100.0) fL MCHC (31.0-37.0) g/dL RDW (11.5-15.5) % Lymphocytes # (1.0-4.8) k/uL PT (9.0-12.0) sec APTT 99.9 H* 84.1 H (22.0-30.0) sec Chloride (98-107) mmol/L Carbon Dioxide (22-30) mmol/L BUN (7-17) mg/dL Creatinine (0.52-1.04) mg/dL Glucose (74-99) mg/dL POC Glucose (mg/dL) 179 H (75-99) mg/dL % Saturation (20-50) % 02/28/16 02/28/16 02/29/16 Range/Units 21:06 22:04 06:20 WBC (3.8-10.6) k/uL RBC (3.80-5.40) m/uL Hgb (11.4-16.0) gm/dL Hct (34.0-46.0) % MCV (80.0-100.0) fL MCHC (31.0-37.0) g/dL RDW (11.5-15.5) % Lymphocytes # (1.0-4.8) k/uL PT 15.5 H (9.0-12.0) sec APTT 45.7 H 54.1 H (22.0-30.0) sec Chloride (98-107) mmol/L Carbon Dioxide (22-30) mmol/L BUN (7-17) mg/dL Creatinine (0.52-1.04) mg/dL Glucose (74-99) mg/dL POC Glucose (mg/dL) 117 H (75-99) mg/dL % Saturation (20-50) % 02/29/16 02/29/16 Range/Units 06:20 06:20 WBC 3.1 L (3.8-10.6) k/uL RBC 2.50 L (3.80-5.40) m/uL Hgb 7.8 L (11.4-16.0) gm/dL Hct 25.6 L (34.0-46.0) % MCV 102.2 H (80.0-100.0) fL MCHC 30.4 L (31.0-37.0) g/dL RDW 17.3 H (11.5-15.5) % Lymphocytes # 0.6 L (1.0-4.8) k/uL PT (9.0-12.0) sec APTT (22.0-30.0) sec Chloride 108 H (98-107) mmol/L Carbon Dioxide 21 L (22-30) mmol/L BUN 29 H (7-17) mg/dL Creatinine 1.40 H (0.52-1.04) mg/dL Glucose 100 H (74-99) mg/dL POC Glucose (mg/dL) (75-99) mg/dL % Saturation (20-50) % Assessment and Plan Plan: #1. Nonoliguric acute kidney injury secondary to cardiorenal syndrome vs CKD. --Unknown baseline creatinine, however renal function is stable. #2. Mild hyperkalemia. --Resolved. #3. Metabolic acidosis secondary to acute kidney injury. --Resolved. #4. Congestive heart failure. EF 35% --Ok to continue lasix gtt. Good UOP so far. 100 ml overnight.
[2016-02-29] MEDS: CHOLECALCIFEROL 1,000 UNIT TAB PO SCH (09:08)
[2016-02-29] MEDS: ALLOPURINOL 300 MG TAB PO SCH (09:08)
[2016-02-29] MEDS: FERROUS SULFATE 325 MG TAB PO SCH (09:08)
[2016-02-29] MEDS: ASPIRIN 81 MG CHEW PO SCH (09:08)
--- NOTE | 2016-02-29 11:09 | P.PN ---
Subjective Principal diagnosis: congestive heart failure This is a 76-year-old female with history of hypertension, hyperlipidemia, diabetes, renal failure, morbid obesity, chronic persistent atrial fibrillation, bilateral lower extremity ulcers, anemia, prior metallic aortic valve replacement, which patient states was performed in [address] [facility]. Her feather mixer is Dr. Romero. Patient presented to the hospital with symptoms of increased swelling in her bilateral lower extremities with evidence of drainage from her legs, as well as ulcerations. She states that she has also been short of breath, positive PND and orthopnea. Patient has had recent admissions to [facility] and [facility] according to her, for the same reasons. Chest x-ray on admission here shows congestive cardiac failure. EKG atrial fibrillation with nonspecific ST-T wave changes. patient was started on a Lasix drip yesterday, continues to diurese well. creatinine today 1.4, hemoglobin 7.8. INR 1.6. Objective - Vital Signs Vital signs: Vital Signs Temp 97.5 F L 02/29/16 09:09 Pulse 89 02/29/16 09:09 Resp 18 02/29/16 09:09 BP 94/59 02/29/16 09:09 Pulse Ox 99 02/29/16 09:09 Intake & Output 02/28/16 02/29/16 02/29/16 18:59 06:59 18:59 Intake Total 59.279 170.973 60 Output Total 500 1450 Balance -440.721 -1279.027 60 Weight 136.3 kg Intake: IV 60 60 Furosemide 250 mg In 60 60 Sodium Chloride 0.9% 225 ml @ 10 MG/HR 10 mls/hr IVP .Q24H MIK Rx#: [id number] Intake, IV Titration 59.279 110.973 Amount Heparin Sodium,Porcine/ 59.279 110.973 D5w Pmx 25,000 unit In Dextrose/Water 1 500ml. bag @ 7.2 UNITS/KG/HR 19. 87 mls/hr IV .Q24H MIK Rx #:[id number] Output: Urine 500 1450 Other: Voiding Method Bedside Commode Bedside Commode Diaper Diaper - Exam PHYSICAL EXAMINATION: HEENT: Head is atraumatic, normocephalic. Pupils equal, round. Neck is supple. There is elevated jugular venous pressure. HEART EXAMINATION: Heart S1-S2 irregularly irregular systolic murmur is heard. CHEST EXAMINATION: His reveal diminished air entry to bilateral bases. ABDOMEN: Soft, B's, nontender. Bowel sounds are heard. No organomegaly noted. EXTREMITIES: Doppler peripheral pulses with 2-3+ peripheral edema and no calf tenderness noted. Bilateral ulcerations, erythema noted. NEUROLOGIC patient is awake, alert and oriented -3. . - Labs CBC & Chem 7: 02/29/16 06:20 02/29/16 06:20 Labs: Abnormal Lab Results - Last 24 Hours (Table) 02/28/16 02/28/16 02/28/16 Range/Units 06:18 11:20 11:54 WBC 3.2 L (3.8-10.6) k/uL RBC 2.71 L (3.80-5.40) m/uL Hgb 8.3 L (11.4-16.0) gm/dL Hct 29.0 L (34.0-46.0) % MCV 106.9 H D (80.0-100.0) fL MCHC 28.6 L (31.0-37.0) g/dL RDW 17.8 H (11.5-15.5) % Lymphocytes # 0.5 L (1.0-4.8) k/uL PT (9.0-12.0) sec APTT (22.0-30.0) sec Chloride (98-107) mmol/L Carbon Dioxide (22-30) mmol/L BUN (7-17) mg/dL Creatinine (0.52-1.04) mg/dL Glucose (74-99) mg/dL POC Glucose (mg/dL) 125 H (75-99) mg/dL % Saturation 16.6 L (20-50) % 02/28/16 02/28/16 02/28/16 Range/Units 14:20 15:42 17:01 WBC (3.8-10.6) k/uL RBC (3.80-5.40) m/uL Hgb (11.4-16.0) gm/dL Hct (34.0-46.0) % MCV (80.0-100.0) fL MCHC (31.0-37.0) g/dL RDW (11.5-15.5) % Lymphocytes # (1.0-4.8) k/uL PT (9.0-12.0) sec APTT 99.9 H* 84.1 H (22.0-30.0) sec Chloride (98-107) mmol/L Carbon Dioxide (22-30) mmol/L BUN (7-17) mg/dL Creatinine (0.52-1.04) mg/dL Glucose (74-99) mg/dL POC Glucose (mg/dL) 179 H (75-99) mg/dL % Saturation (20-50) % 02/28/16 02/28/16 02/29/16 Range/Units 21:06 22:04 06:20 WBC (3.8-10.6) k/uL RBC (3.80-5.40) m/uL Hgb (11.4-16.0) gm/dL Hct (34.0-46.0) % MCV (80.0-100.0) fL MCHC (31.0-37.0) g/dL RDW (11.5-15.5) % Lymphocytes # (1.0-4.8) k/uL PT 15.5 H (9.0-12.0) sec APTT 45.7 H 54.1 H (22.0-30.0) sec Chloride (98-107) mmol/L Carbon Dioxide (22-30) mmol/L BUN (7-17) mg/dL Creatinine (0.52-1.04) mg/dL Glucose (74-99) mg/dL POC Glucose (mg/dL) 117 H (75-99) mg/dL % Saturation (20-50) % 02/29/16 02/29/16 Range/Units 06:20 06:20 WBC 3.1 L (3.8-10.6) k/uL RBC 2.50 L (3.80-5.40) m/uL Hgb 7.8 L (11.4-16.0) gm/dL Hct 25.6 L (34.0-46.0) % MCV 102.2 H (80.0-100.0) fL MCHC 30.4 L (31.0-37.0) g/dL RDW 17.3 H (11.5-15.5) % Lymphocytes # 0.6 L (1.0-4.8) k/uL PT (9.0-12.0) sec APTT (22.0-30.0) sec Chloride 108 H (98-107) mmol/L Carbon Dioxide 21 L (22-30) mmol/L BUN 29 H (7-17) mg/dL Creatinine 1.40 H (0.52-1.04) mg/dL Glucose 100 H (74-99) mg/dL POC Glucose (mg/dL) (75-99) mg/dL % Saturation (20-50) % Assessment and Plan Plan: Assessment and plan #1 congestive cardiac failure, systolic acute on chronic currently on a Lasix drip. Echocardiogram with Doppler study which was performed in October at [facility] revealed an ejection fraction of 35%, normally functioning bioprosthetic aortic valve and mild degree of mitral regurgitation. #2 history of metallic aortic valve replacement, on Coumadin, patient is not taking Coumadin for the past 7 days, INR subtherapeutic at 1.4. #3 chronic persistent atrial fibrillation #4 hypertension #5 diabetes #6 hyperlipidemia #7 bilateral leg and feet ulcerations #8 sleep apnea #9 obesity #10 non-Hodgkin's lymphoma #11 chronic anemia Plan INR is 1.6 today. continue IV heparin at this time, patient continues to diurese well we will continue IV Lasix drip. Monitor intake and output along with daily weights and daily lytes BUN and creatinine. DNP note has been reviewed, I agree with a documented findings and plan of care. Patient was seen and examined.
[2016-02-29] MEDS: FUROSEMIDE 250 MG in SODIUM CHLORIDE 0.9% 225 ML IVP SCH (11:17)
[2016-02-29 12:43] LABS: Glucose,Whole Blood 123 mg/dL (75-99)
--- NOTE | 2016-02-29 16:43 | PN ---
DATE OF SERVICE: 02/28/2016 PRESENTING COMPLAINT: CHF exacerbation. INTERVAL HISTORY: This patient was seen by me yesterday on 02/28/2016. Patient presented with CHF exacerbation. Getting IV Lasix. Also has got atrial fibrillation, on Coumadin. Patient also has a ( ) aortic valve per cardiology. Patient breathing is better. at the bedside. Did tolerate some diet. Review of systems done for constitutional, cardiovascular, GI, pulmonary; relevant findings as above. Edema still present. Current medications reviewed that include Lasix and IV heparin. On examination, temperature 97, pulse 71, respirations 16, blood pressure 116/52, pulse ox 97% on 2 liters. GENERAL APPEARANCE: Sitting up on a chair, comfortable. EYES: Pupils equal. Conjunctivae normal. NECK: JVD unable to assess. Mass not palpable. RESPIRATORY: Effort increased. LUNGS: Diminished breath sounds. CARDIOVASCULAR: Heart sounds irregular. Edema present. ABDOMEN: Soft, nontender. Liver and spleen not palpable. PSYCHIATRY: Alert and oriented x3. Mood and affect normal. INVESTIGATIONS: White count 3.2, hemoglobin 8.3, potassium 5.5. BUN 30, creatinine 1.30. ASSESSMENT: 1. Acute on chronic congestive heart failure exacerbation from systolic dysfunction; ejection fraction 45%. 2. Hypertensive heart disease with moderate concentric left ventricular hypertrophy. 3. Moderate pulmonary regurgitation. 4. Secondary pulmonary hypertension, nonrheumatic. 5. Moderate to severe mitral regurgitation, nonrheumatic 6. Persistent atrial fibrillation, rate controlled. 7. Coumadin monitoring for therapeutic level. 8. IV heparin monitoring for therapeutic level. 9. Morbid obesity body mass index of 49.5. 10. Hyperlipidemia. 11. Essential hypertension. 12. Medical debility, patient uses a cart to get about. 13. Right lower extremity venous ulcer. 14. Chronic kidney disease, stage III, probably, stage III from nephrosclerosis. PLAN: Continue current medication and treatment plan. Coumadin is to be followed. Care was discussed with the patient. She started to feel overall a bit better. Follow.
[2016-02-29] MEDS: HEPARIN SODIUM,PORCINE/D5W PMX 25,000 UNIT in DEXTROSE/WATER 1 500ML.BAG IV SCH (17:01)
[2016-02-29] MEDS: WARFARIN 5 MG TAB PO SCH (17:11)
[2016-02-29 17:13] LABS: Glucose,Whole Blood 126 mg/dL (75-99)
[2016-02-29 20:54] LABS: Glucose,Whole Blood 165 mg/dL (75-99)
[2016-02-29] MEDS: WARFARIN 7.5 MG TAB PO SCH (22:23)
[2016-02-29] MEDS: ENOXAPARIN 120 MG/0.8 ML SYRINGE SQ SCH (22:33)
[2016-02-29] MEDS: ATORVASTATIN 10 MG TAB PO SCH (23:31)
[2016-03-01 06:20] LABS: Anisocytosis Slight; Basophils % (A) 0 %; CHCM 29.3; Eosinophils # (A) 0.1 k/uL (0-0.7); Eosinophils % (A) 2 %; HCT 27.1 % (34.0-46.0); HGB 8.1 gm/dL (11.4-16.0); Hypochromasia Marked; Luc # (Auto) 0.08; Luc % (Auto) 2; Lymphocytes # (A) 0.6 k/uL (1.0-4.8); Lymphocytes % (A) 17 %; MCH 30.8 pg (25.0-35.0); MCV 102.9 fL (80.0-100.0); Macrocytosis Moderate; Mean Platelet Volume 7.1; Monocytes # (A) 0.3 k/uL (0-1.0); Monocytes % (A) 8 %; Neutrophils # (A) 2.5 k/uL (1.3-7.7); Neutrophils % (A) 71 %; RBC 2.63 m/uL (3.80-5.40); RDW 17.3 % (11.5-15.5); WBC 3.5 k/uL (3.8-10.6); WBC (Perox) 3.69
[2016-03-01 06:27] LABS: Glucose,Whole Blood 97 mg/dL (75-99)
[2016-03-01 06:28] LABS: INR 1.8 (<1.1)
[2016-03-01 06:35] LABS: Calcium 9.5 mg/dL (8.4-10.2); Potassium 4.5 mmol/L (3.5-5.1)
[2016-03-01] MEDS: INSULIN LISPRO (humaLOG) 300 UNIT/3 ML VIAL SQ SCH ×4 (06:48→21:30)
[2016-03-01] MEDS: CEPHALEXIN 500 MG CAP PO SCH ×3 (06:50→16:49)
[2016-03-01] MEDS: CARVEDILOL 12.5 MG TAB PO SCH ×2 (06:50→16:49)
--- NOTE | 2016-03-01 07:47 | P.PN ---
Subjective Principal diagnosis: Feelingwell. followup for ERIC vs CKD and CHF exacerbation. Improved swelling in legs but still with severe edema. Objective - Vital Signs Vital signs: Vital Signs Temp 97 F L 03/01/16 04:00 Pulse 78 03/01/16 04:00 Resp 18 03/01/16 04:00 BP 114/67 03/01/16 04:00 Pulse Ox 98 03/01/16 04:00 Intake & Output 02/29/16 03/01/16 03/01/16 18:59 06:59 18:59 Intake Total 600 120 Output Total 2950 Balance 600 -2830 Weight 136 kg Intake: IV 380 120 0.9 @ 10mls 60 Furosemide 250 mg In 380 60 Sodium Chloride 0.9% 225 ml @ 10 MG/HR 10 mls/hr IVP .Q24H [facility] Rx#: [id number] Intake, IV Titration 220 Amount Furosemide 250 mg In 220 Sodium Chloride 0.9% 225 ml @ 10 MG/HR 10 mls/hr IVP .Q24H [facility] Rx#: [id number] Output: Urine 2950 Other: Voiding Method Bedside Commode Bedside Commode Diaper - Constitutional General appearance: Present: no acute distress, obese - Respiratory Respiratory: bilateral: diminished - Cardiovascular Rhythm: regular Heart sounds: normal: S1, S2 - Peripheral edema leg Peripheral Edema: bilateral: 3+ - Gastrointestinal General gastrointestinal: Present: soft - Labs CBC & Chem 7: 03/01/16 05:50 03/01/16 05:50 Labs: Abnormal Lab Results - Last 24 Hours (Table) 02/29/16 02/29/16 02/29/16 Range/Units 12:05 17:10 19:19 WBC (3.8-10.6) k/uL RBC (3.80-5.40) m/uL Hgb (11.4-16.0) gm/dL Hct (34.0-46.0) % MCV (80.0-100.0) fL MCHC (31.0-37.0) g/dL RDW (11.5-15.5) % Lymphocytes # (1.0-4.8) k/uL PT (9.0-12.0) sec Carbon Dioxide (22-30) mmol/L BUN (7-17) mg/dL Creatinine (0.52-1.04) mg/dL POC Glucose (mg/dL) 123 H 126 H (75-99) mg/dL Crossmatch See Detail 02/29/16 03/01/16 03/01/16 Range/Units 20:53 05:50 05:50 WBC 3.5 L (3.8-10.6) k/uL RBC 2.63 L (3.80-5.40) m/uL Hgb 8.1 L (11.4-16.0) gm/dL Hct 27.1 L (34.0-46.0) % MCV 102.9 H (80.0-100.0) fL MCHC 30.0 L (31.0-37.0) g/dL RDW 17.3 H (11.5-15.5) % Lymphocytes # 0.6 L (1.0-4.8) k/uL PT 17.0 H (9.0-12.0) sec Carbon Dioxide (22-30) mmol/L BUN (7-17) mg/dL Creatinine (0.52-1.04) mg/dL POC Glucose (mg/dL) 165 H (75-99) mg/dL Crossmatch 03/01/16 Range/Units 05:50 WBC (3.8-10.6) k/uL RBC (3.80-5.40) m/uL Hgb (11.4-16.0) gm/dL Hct (34.0-46.0) % MCV (80.0-100.0) fL MCHC (31.0-37.0) g/dL RDW (11.5-15.5) % Lymphocytes # (1.0-4.8) k/uL PT (9.0-12.0) sec Carbon Dioxide 21 L (22-30) mmol/L BUN 30 H (7-17) mg/dL Creatinine 1.40 H (0.52-1.04) mg/dL POC Glucose (mg/dL) (75-99) mg/dL Crossmatch Assessment and Plan Plan: #1. Nonoliguric acute kidney injury secondary to cardiorenal syndrome vs CKD. --Unknown baseline creatinine, however renal function is stable. 1.3-1.4 #2. Congestive heart failure. EF 35% --Still quite of bit of edema. UOP ok. Will increase lasix gtt from 10 to 15mg/ hr and add metolazone 2.5mg bid.
[2016-03-01] MEDS: FERROUS SULFATE 325 MG TAB PO SCH (08:07)
[2016-03-01] MEDS: CHOLECALCIFEROL 1,000 UNIT TAB PO SCH (08:07)
[2016-03-01] MEDS: ENOXAPARIN 120 MG/0.8 ML SYRINGE SQ SCH ×2 (08:07→23:48)
[2016-03-01] MEDS: ASPIRIN 81 MG CHEW PO SCH (08:07)
[2016-03-01] MEDS: ALLOPURINOL 300 MG TAB PO SCH (08:07)
[2016-03-01] MEDS: METOLAZONE 2.5 MG TAB PO SCH ×2 (08:08→16:49)
--- NOTE | 2016-03-01 10:39 | PN ---
DATE OF SERVICE: 02/29/2016 PRESENTING COMPLAINT: Congestive heart failure exacerbation. INTERVAL HISTORY: The patient presented with congestive heart failure exacerbation, on Lasix drip. Good negative fluid balance. Still ( ) edema is present and also in atrial fibrillation. Also on IV heparin drip. INR is subtherapeutic. Breathing a shade better. Sitting up on a chair. Review of systems done for constitutional, cardiovascular, GI, pulmonary; relevant findings as above. Current medications include Lasix drip and IV heparin drip. On examination, temperature 97.4, pulse 80, respirations 16, blood pressure 117/65, pulse ox 97% on 2 liters. GENERAL APPEARANCE: Sitting up in a chair, tired appearing. EYES: Pupils equal. Conjunctivae normal. NECK: JVD unable to assess. Mass not palpable. RESPIRATORY: Effort increased. LUNGS: Diminished breath sounds. CARDIOVASCULAR: ( ) edema and ( ) edema ( ) present. ABDOMEN: Soft. Nontender. Liver and spleen not palpable. PSYCHIATRY: Alert and oriented x3. Mood and affect normal. INVESTIGATIONS: White count 3.1, hemoglobin 7.8, potassium 4.6, BUN 29, creatinine 1.40, blood pressure is 94/59. ASSESSMENT: 1. Acute on chronic congestive heart failure exacerbation from systolic dysfunction; ejection fraction 45%, slow to respond, currently on Lasix for underlying hypertensive heart disease. 2. ( ) hypertensive heart disease with moderate concentric left ventricular hypertrophy. 3. Moderate secondary pulmonary hypertension from congestive heart failure. 4. Secondary pulmonary hypertension, nonrheumatic. 5. Secondary pulmonic regurgitation, nonrheumatic. 6. Moderate to severe mitral regurgitation, nonrheumatic. 7. Persistent atrial fibrillation, rate controlled. 8. Coumadin monitoring for therapeutic level. 9. IV heparin monitoring for therapeutic level. 10. Morbid obesity, body mass index 49.5. 11. Hyperlipidemia. 12. Essential hypertension. 13. Medical debility, patient uses a cart to get about. 14. Right lower extremity venous ulcer. 15. Chronic kidney stage III, probably from nephrosclerosis. PLAN: Continue patient on Lasix drip. We will switch the patient to Lovenox for convenience. INR will be followed. We will increase patient's Coumadin to 7.5 mg.
[2016-03-01 11:28] LABS: Glucose,Whole Blood 135 mg/dL (75-99)
[2016-03-01] MEDS: FUROSEMIDE 250 MG in SODIUM CHLORIDE 0.9% 225 ML IVP SCH (16:45)
[2016-03-01] MEDS: WARFARIN 7.5 MG TAB PO SCH (16:49)
[2016-03-01 17:22] LABS: Glucose,Whole Blood 115 mg/dL (75-99)
[2016-03-01 20:48] LABS: Glucose,Whole Blood 175 mg/dL (75-99)
[2016-03-01] MEDS: ATORVASTATIN 10 MG TAB PO SCH (21:29)
[2016-03-02] MEDS: CEPHALEXIN 500 MG CAP PO SCH ×4 (00:21→17:52)
[2016-03-02] MEDS: FUROSEMIDE 250 MG in SODIUM CHLORIDE 0.9% 225 ML IVP SCH (04:00)
[2016-03-02 06:01] LABS: Glucose,Whole Blood 136 mg/dL (75-99)
[2016-03-02 06:33] LABS: Anisocytosis Slight; Basophils % (A) 1 %; CH 30.2; CHCM 30.4; Eosinophils # (A) 0.1 k/uL (0-0.7); Eosinophils % (A) 2 %; HCT 26.8 % (34.0-46.0); HDW 2.88; HGB 8.2 gm/dL (11.4-16.0); Hypochromasia Marked; Luc # (Auto) 0.08; Luc % (Auto) 3; Lymphocytes # (A) 0.5 k/uL (1.0-4.8); Lymphocytes % (A) 17 %; MCH 30.7 pg (25.0-35.0); MCHC 30.6 g/dL (31.0-37.0); MCV 100.1 fL (80.0-100.0); Macrocytosis Slight; Mean Platelet Volume 7.1; Monocytes # (A) 0.3 k/uL (0-1.0); Monocytes % (A) 11 %; Neutrophils % (A) 67 %; RBC 2.67 m/uL (3.80-5.40); RDW 17.5 % (11.5-15.5); WBC (Perox) 3.05
[2016-03-02 06:35] LABS: Prothrombin Time 18.8 sec (9.0-12.0)
[2016-03-02 06:42] LABS: Calcium 9.2 mg/dL (8.4-10.2); Potassium 4.3 mmol/L (3.5-5.1)
[2016-03-02] MEDS: CARVEDILOL 12.5 MG TAB PO SCH ×2 (06:47→17:52)
[2016-03-02] MEDS: INSULIN LISPRO (humaLOG) 300 UNIT/3 ML VIAL SQ SCH ×4 (06:47→22:17)
[2016-03-02] MEDS: ENOXAPARIN 120 MG/0.8 ML SYRINGE SQ SCH (08:11)
[2016-03-02] MEDS: CHOLECALCIFEROL 1,000 UNIT TAB PO SCH (08:11)
[2016-03-02] MEDS: ASPIRIN 81 MG CHEW PO SCH (08:12)
[2016-03-02] MEDS: ALLOPURINOL 300 MG TAB PO SCH (08:12)
[2016-03-02] MEDS: METOLAZONE 2.5 MG TAB PO SCH ×2 (08:12→16:21)
[2016-03-02] MEDS: FERROUS SULFATE 325 MG TAB PO SCH (08:12)
[2016-03-02] MEDS: SODIUM FERRIC GLUCONAT-SUCROSE 125 MG in SODIUM CHLORIDE 0.9% 100 ML IVPB SCH (09:42)
--- NOTE | 2016-03-02 09:44 | P.PN ---
Subjective Patient is seen in follow-up for acute kidney injury. Renal function is mildly worsened with creatinine at 1.52. She is currently maintained on Lasix drip running at 15 mL an hour. She is nonoliguric. Edema is improving. Denies vomiting or diarrhea. Denies chest pain or shortness of breath. Currently working with physical therapy. Vital signs are stable. General: The patient appeared well nourished and normally developed. HEENT: Head exam is unremarkable. Neck is without jugular venous distension. LUNGS: Lungs are clear to auscultation and percussion. Breath sounds decreased. HEART: Rate and Rhythm are regular. First and second heart sounds normal. No murmurs, rubs or gallops. ABDOMEN: Abdominal exam reveals normal bowel sounds. Non-tender and non- distended. No evidence of peritonitis. EXTREMITITES: 1+ edema. Objective - Vital Signs Vital signs: Vital Signs Temp 96.8 F L 03/02/16 08:00 Pulse 81 03/02/16 08:00 Resp 20 03/02/16 08:00 BP 115/59 03/02/16 08:00 Pulse Ox 97 03/02/16 08:00 Intake & Output 03/01/16 03/02/16 03/02/16 18:59 06:59 18:59 Intake Total 660 1000 70 Output Total 1100 1900 175 Balance -440 -900 -105 Weight 135.3 kg Intake: IV 90 50 0.9 @ 10mls 20 Furosemide 250 mg In 90 30 Sodium Chloride 0.9% 225 ml @ 15 MG/HR 15 mls/hr IVP .[id number] [facility] Rx#: [id number] Intake, IV Titration 250 Amount Furosemide 250 mg In 250 Sodium Chloride 0.9% 225 ml @ 15 MG/HR 15 mls/hr IVP .[id number] [facility] Rx#: [id number] Oral 410 600 20 Blood Product 310 Rc As-1 Unit 310 [id number] Output: Urine 1100 1900 175 Other: Voiding Method Bedside Commode Bedside Commode Bedside Commode # Voids 1 - Labs CBC & Chem 7: 03/02/16 06:03 03/02/16 06:03 Labs: Abnormal Lab Results - Last 24 Hours (Table) 02/29/16 03/01/16 03/01/16 Range/Units 19:19 11:22 16:54 WBC (3.8-10.6) k/uL RBC (3.80-5.40) m/uL Hgb (11.4-16.0) gm/dL Hct (34.0-46.0) % MCV (80.0-100.0) fL MCHC (31.0-37.0) g/dL RDW (11.5-15.5) % Lymphocytes # (1.0-4.8) k/uL PT (9.0-12.0) sec BUN (7-17) mg/dL Creatinine (0.52-1.04) mg/dL Glucose (74-99) mg/dL POC Glucose (mg/dL) 135 H 115 H (75-99) mg/dL Crossmatch See Detail 03/01/16 03/02/16 03/02/16 Range/Units 20:47 05:59 06:03 WBC (3.8-10.6) k/uL RBC (3.80-5.40) m/uL Hgb (11.4-16.0) gm/dL Hct (34.0-46.0) % MCV (80.0-100.0) fL MCHC (31.0-37.0) g/dL RDW (11.5-15.5) % Lymphocytes # (1.0-4.8) k/uL PT 18.8 H (9.0-12.0) sec BUN (7-17) mg/dL Creatinine (0.52-1.04) mg/dL Glucose (74-99) mg/dL POC Glucose (mg/dL) 175 H 136 H (75-99) mg/dL Crossmatch 03/02/16 03/02/16 Range/Units 06:03 06:03 WBC 3.0 L (3.8-10.6) k/uL RBC 2.67 L (3.80-5.40) m/uL Hgb 8.2 L (11.4-16.0) gm/dL Hct 26.8 L (34.0-46.0) % MCV 100.1 H (80.0-100.0) fL MCHC 30.6 L (31.0-37.0) g/dL RDW 17.5 H (11.5-15.5) % Lymphocytes # 0.5 L (1.0-4.8) k/uL PT (9.0-12.0) sec BUN 30 H (7-17) mg/dL Creatinine 1.52 H (0.52-1.04) mg/dL Glucose 131 H (74-99) mg/dL POC Glucose (mg/dL) (75-99) mg/dL Crossmatch Assessment and Plan Plan: Assessment: #1. Nonoliguric acute kidney injury secondary to cardiorenal syndrome. Renal function mildly worsened with creatinine at 1.5 to today. Unclear as to what her baseline renal function is. No evidence of hydronephrosis noted on renal ultrasound. Urinalysis is benign. #2. Mild hyperkalemia. Sample was hemolyzed. Renal failure and metabolic acidosis of contributing factors. #3. Metabolic acidosis secondary to acute kidney injury. Resolved. #4. Morbid obesity. #5. Systolic CHF with ejection fraction of 35%. #6. Right lower extremity ulcer. #7. Anemia. Iron deficiency present. Plan: Continue Lasix drip to be run at 15 mL an hour for the next 24 hours. Ferrlecit 125 mg IV daily for 3 days. First dose today. Continue oral sodium bicarbonate supplementation. Repeat electrolytes in the morning.
--- NOTE | 2016-03-02 10:57 | PN ---
PRESENTING COMPLAINT: Short of breath. INTERVAL HISTORY: This patient has CHF exacerbation continues on Lasix drip edema is slowly coming down. Continues to be negative fluid balance up until now. Has at about -5000 mL on Lasix drip. Current medications are reviewed that include IV Lasix drip. Zaroxolyn was added by nephrology earlier today. Review of systems done for constitutional, cardiovascular, GI, pulmonary; relevant findings as above. The patient had slight epistaxis earlier today. On examination, temperature 97.7, pulse 93, respirations 16, blood pressure 112/63, pulse ox 98% on room air. GENERAL APPEARANCE: Sitting up in a chair, comfortable. EYES: Pupils equal. Conjunctivae normal. NECK: JVD unable to assess. Mass not palpable. RESPIRATORY: Effort increased. LUNGS: Diminished breath sounds. CARDIOVASCULAR: Heart sounds irregular. Edema present. Slightly decreased. ABDOMEN: Soft, nontender. Liver and spleen not palpable. PSYCHIATRY: Alert and oriented x3. Mood and affect normal. INVESTIGATIONS: White count 3.5, hemoglobin 8.1, potassium 4.5. BUN 30, creatinine 1.40. ASSESSMENT: 1. Acute on chronic congestive heart failure exacerbation from systolic dysfunction, ejection fraction 45% slow to respond on Lasix drip from underlying hypertensive heart disease. 2. Hypertensive heart disease with moderate concentric left ventricular hypertrophy. 3. Moderate secondary pulmonary hypertension from congestive heart failure. 4. Secondary pulmonary hypertension from congestive heart failure. 5. Moderate pulmonic regurgitation, nonrheumatic. 6. Moderate to severe mitral regurgitation, nonrheumatic. 7. Persistent atrial fibrillation, rate controlled. 8. Coumadin monitoring with therapeutic level. 9. IV heparin. 10. Morbid obesity body mass index of 49.5. 11. Hyperlipidemia. 12. Essential hypertension. 13. Medical debility, uses a cart to get about. 14. Right lower extremity venous ulcer. 15. Chronic kidney disease, stage III from nephrosclerosis. 16. Coumadin monitoring with therapeutic level. PLAN: Continue the patient on IV Lasix drip. Patient is also on Zaroxolyn, getting Coumadin at the newer had a new dose. Follow.
[2016-03-02 11:49] LABS: Glucose,Whole Blood 110 mg/dL (75-99)
--- NOTE | 2016-03-02 12:09 | XR ---
EXAMINATION TYPE: XR chest 2V DATE OF EXAM: 02/26/2016 5:53 PM COMPARISON: NONE HISTORY: Shortness of breath FINDINGS: Noted is pulmonary venous congestion with scattered infiltrates. There is also cardiomegaly and small effusions. IMPRESSION: Findings compatible with congestive failure. Infiltrates of other etiology are not excluded. Clinical correlation and progress studies are recommended.
--- NOTE | 2016-03-02 14:38 | P.PN ---
Subjective Principal diagnosis: congestive heart failure This is a 76-year-old female with history of hypertension, hyperlipidemia, diabetes, renal failure, morbid obesity, chronic persistent atrial fibrillation, bilateral lower extremity ulcers, anemia, prior metallic aortic valve replacement, which patient states was performed in 2011 at [facility]. Her rn document improvement specialist is Dr. Romero. Patient presented to the hospital with symptoms of increased swelling in her bilateral lower extremities with evidence of drainage from her legs, as well as ulcerations. She states that she has also been short of breath, positive PND and orthopnea. Patient has had recent admissions to [facility] and [facility] according to her, for the same reasons. Chest x-ray on admission here shows congestive cardiac failure. EKG atrial fibrillation with nonspecific ST-T wave changes. patient was started on a Lasix drip, continues to diurese well. creatinine today 1.5, hemoglobin 8.2. INR 2.0. Objective - Vital Signs Vital signs: Vital Signs Temp 97.7 F 03/02/16 11:11 Pulse 70 03/02/16 11:12 Resp 18 03/02/16 11:12 BP 98/56 03/02/16 11:11 Pulse Ox 96 03/02/16 11:11 Intake & Output 03/01/16 03/02/16 03/02/16 18:59 06:59 18:59 Intake Total 660 1000 250 Output Total 1100 1900 175 Balance -440 -900 75 Weight 135.3 kg Intake: IV 90 50 0.9 @ 10mls 20 Furosemide 250 mg In 90 30 Sodium Chloride 0.9% 225 ml @ 15 MG/HR 15 mls/hr IVP .[id number] [facility] Rx#: [id number] Intake, IV Titration 250 Amount Furosemide 250 mg In 250 Sodium Chloride 0.9% 225 ml @ 15 MG/HR 15 mls/hr IVP .[id number] [facility] Rx#: [id number] Oral 410 600 200 Blood Product 310 Rc As-1 Unit 310 [id number] Output: Urine 1100 1900 175 Other: Voiding Method Bedside Commode Bedside Commode Bedside Commode # Voids 1 - Exam PHYSICAL EXAMINATION: HEENT: Head is atraumatic, normocephalic. Pupils equal, round. Neck is supple. There is elevated jugular venous pressure. HEART EXAMINATION: Heart S1-S2 irregularly irregular systolic murmur is heard. CHEST EXAMINATION: His reveal diminished air entry to bilateral bases. ABDOMEN: Soft, B's, nontender. Bowel sounds are heard. No organomegaly noted. EXTREMITIES: Doppler peripheral pulses with 2-3+ peripheral edema and no calf tenderness noted. Bilateral ulcerations, erythema noted. NEUROLOGIC patient is awake, alert and oriented -3. . - Labs CBC & Chem 7: 03/02/16 06:03 03/02/16 06:03 Labs: Abnormal Lab Results - Last 24 Hours (Table) 02/29/16 03/01/16 03/01/16 Range/Units 19:19 16:54 20:47 WBC (3.8-10.6) k/uL RBC (3.80-5.40) m/uL Hgb (11.4-16.0) gm/dL Hct (34.0-46.0) % MCV (80.0-100.0) fL MCHC (31.0-37.0) g/dL RDW (11.5-15.5) % Lymphocytes # (1.0-4.8) k/uL PT (9.0-12.0) sec BUN (7-17) mg/dL Creatinine (0.52-1.04) mg/dL Glucose (74-99) mg/dL POC Glucose (mg/dL) 115 H 175 H (75-99) mg/dL Crossmatch See Detail 03/02/16 03/02/16 03/02/16 Range/Units 05:59 06:03 06:03 WBC 3.0 L (3.8-10.6) k/uL RBC 2.67 L (3.80-5.40) m/uL Hgb 8.2 L (11.4-16.0) gm/dL Hct 26.8 L (34.0-46.0) % MCV 100.1 H (80.0-100.0) fL MCHC 30.6 L (31.0-37.0) g/dL RDW 17.5 H (11.5-15.5) % Lymphocytes # 0.5 L (1.0-4.8) k/uL PT 18.8 H (9.0-12.0) sec BUN (7-17) mg/dL Creatinine (0.52-1.04) mg/dL Glucose (74-99) mg/dL POC Glucose (mg/dL) 136 H (75-99) mg/dL Crossmatch 03/02/16 03/02/16 Range/Units 06:03 11:47 WBC (3.8-10.6) k/uL RBC (3.80-5.40) m/uL Hgb (11.4-16.0) gm/dL Hct (34.0-46.0) % MCV (80.0-100.0) fL MCHC (31.0-37.0) g/dL RDW (11.5-15.5) % Lymphocytes # (1.0-4.8) k/uL PT (9.0-12.0) sec BUN 30 H (7-17) mg/dL Creatinine 1.52 H (0.52-1.04) mg/dL Glucose 131 H (74-99) mg/dL POC Glucose (mg/dL) 110 H (75-99) mg/dL Crossmatch Assessment and Plan Plan: Assessment and plan #1 congestive cardiac failure, systolic acute on chronic currently on a Lasix drip. Echocardiogram with Doppler study which was performed in October at [facility] revealed an ejection fraction of 35%, normally functioning bioprosthetic aortic valve and mild degree of mitral regurgitation. #2 history of metallic aortic valve replacement, on Coumadin, patient is not taking Coumadin for the past 7 days, INR subtherapeutic at 1.4. #3 chronic persistent atrial fibrillation #4 hypertension #5 diabetes #6 hyperlipidemia #7 bilateral leg and feet ulcerations #8 sleep apnea #9 obesity #10 non-Hodgkin's lymphoma #11 chronic anemia Plan INR is 2.0 today. Discontinue IV heparin at this time, patient continues to diurese well we will continue IV Lasix drip. Monitor intake and output along with daily weights and daily lytes BUN and creatinine. DNP note has been reviewed, I agree with a documented findings and plan of care. Patient was seen and examined.
[2016-03-02 17:02] LABS: Glucose,Whole Blood 115 mg/dL (75-99)
[2016-03-02] MEDS: WARFARIN 7.5 MG TAB PO SCH (17:52)
[2016-03-02 20:51] LABS: Glucose,Whole Blood 144 mg/dL (75-99)
[2016-03-02] MEDS: ATORVASTATIN 10 MG TAB PO SCH (22:18)
[2016-03-03] MEDS: CEPHALEXIN 500 MG CAP PO SCH ×4 (01:25→17:10)
[2016-03-03] MEDS: FUROSEMIDE 250 MG in SODIUM CHLORIDE 0.9% 225 ML IVP SCH ×3 (01:45→17:12)
[2016-03-03 06:12] LABS: Glucose,Whole Blood 99 mg/dL (75-99)
[2016-03-03 06:23] LABS: Anisocytosis Slight; Basophils % (A) 1 %; CH 29.9; CHCM 29.5; Eosinophils % (A) 2 %; HDW 2.78; HGB 7.9 gm/dL (11.4-16.0); Hypochromasia Marked; Luc % (Auto) 4; Lymphocytes # (A) 0.5 k/uL (1.0-4.8); Lymphocytes % (A) 18 %; MCHC 29.3 g/dL (31.0-37.0); MCV 102.1 fL (80.0-100.0); Macrocytosis Moderate; Mean Platelet Volume 7.4; Monocytes # (A) 0.3 k/uL (0-1.0); Monocytes % (A) 10 %; Neutrophils # (A) 1.7 k/uL (1.3-7.7); Neutrophils % (A) 65 %; RBC 2.64 m/uL (3.80-5.40); RDW 17.6 % (11.5-15.5); WBC 2.6 k/uL (3.8-10.6); WBC (Perox) 2.83
[2016-03-03 06:25] LABS: INR 2.3 (<1.1); Prothrombin Time 22.1 sec (9.0-12.0)
[2016-03-03] MEDS: INSULIN LISPRO (humaLOG) 300 UNIT/3 ML VIAL SQ SCH ×4 (06:40→21:02)
[2016-03-03] MEDS: CARVEDILOL 12.5 MG TAB PO SCH ×2 (06:41→17:10)
[2016-03-03 06:45] LABS: Calcium 9.2 mg/dL (8.4-10.2)
[2016-03-03] MEDS: FERROUS SULFATE 325 MG TAB PO SCH (09:20)
[2016-03-03] MEDS: SODIUM FERRIC GLUCONAT-SUCROSE 125 MG in SODIUM CHLORIDE 0.9% 100 ML IVPB SCH (09:20)
[2016-03-03] MEDS: ALLOPURINOL 300 MG TAB PO SCH (09:21)
[2016-03-03] MEDS: METOLAZONE 2.5 MG TAB PO SCH ×2 (09:21→17:11)
[2016-03-03] MEDS: CHOLECALCIFEROL 1,000 UNIT TAB PO SCH (09:21)
[2016-03-03] MEDS: ASPIRIN 81 MG CHEW PO SCH (09:21)
--- NOTE | 2016-03-03 09:49 | PN ---
DATE OF SERVICE: 03/02/16. PRESENTING COMPLAINT: Short of breath. INTERVAL HISTORY: This is a patient admitted with CHF exacerbation. Continues to be on Lasix drip, Zaroxolyn was added yesterday. Still in negative fluid balance. Feeling a bit better. REVIEW OF SYSTEMS: Waiting for consult with GI, pulmonary; relevant findings as above . Current medications are reviewed and include IV Lasix drip and Zaroxolyn. PHYSICAL EXAMINATION: On examination, temperature 97.7, pulse 90, respiration 18, blood pressure ( ) , pulse ox 96% on room air. GENERAL APPEARANCE: Sitting up in a chair, not in distress. EYES: Pupils equal. Conjunctivae normal. NECK: JVD unable to assess. Mass not palpable. RESPIRATORY: Effort increased. LUNGS: Diminished breath sounds. CARDIOVASCULAR: Heart sounds regular. Edema present, but decreased. ABDOMEN: Soft, nontender. Liver and spleen and spleen not palpable. PSYCHIATRY: Alert and oriented x3. Mood and affect normal. INVESTIGATIONS: White count 3, hemoglobin 8.2, potassium 4.3, BUN 30, creatinine 1.52 Accu-Cheks are noted. ASSESSMENT: 1. Acute on chronic congestive heart failure exacerbation from systolic dysfunction; ejection fraction 45% had been on Lasix drip from underlying hypertensive heart disease. 2. Hypertensive heart disease with moderate concentric left ventricular hypertrophy. 3. Moderate secondary pulmonary hypertension from congestive heart failure. 4. Secondary pulmonary hypertension from congestive heart failure. 5. Moderate pulmonary regurgitation, nonrheumatic. 6. Moderate to severe mitral regurgitation, nonrheumatic. 7. Persistent atrial fibrillation, rate controlled. 8. Coumadin monitoring for therapeutic level. 9. Morbid obesity, body mass index of 49.5. 10. Hyperlipidemia. 11. Essential hypertension. 12. Medical debility, uses a cart to get about. 13. Right lower extremity venous ulcer, improving. 14. Chronic kidney stage III, from nephrosclerosis. 15. ( ) monitoring for therapeutic level. Patient Lovenox had been discontinued. His INR has been therapeutic. 16. Continue current medication treatment plan and follow. Care was discussed with the patient. Patient remains on IV Lasix drip.
--- NOTE | 2016-03-03 09:52 | P.PN ---
Subjective Patient is seen in follow-up for acute kidney injury. Renal function is stable with creatinine at 1.5. She is currently maintained on Lasix drip running at 15 mL an hour. She is nonoliguric. Edema is improving. Denies vomiting or diarrhea. Denies chest pain or shortness of breath. Vital signs are stable. General: The patient appeared well nourished and normally developed. HEENT: Head exam is unremarkable. Neck is without jugular venous distension. LUNGS: Lungs are clear to auscultation and percussion. Breath sounds decreased. HEART: Rate and Rhythm are regular. First and second heart sounds normal. No murmurs, rubs or gallops. ABDOMEN: Abdominal exam reveals normal bowel sounds. Non-tender and non- distended. No evidence of peritonitis. EXTREMITITES: 1+ edema. Objective - Vital Signs Vital signs: Vital Signs Temp 96.8 F L 03/03/16 08:00 Pulse 75 03/03/16 08:00 Resp 20 03/03/16 08:00 BP 102/74 03/03/16 08:00 Pulse Ox 97 03/03/16 08:00 Intake & Output 03/02/16 03/03/16 03/03/16 18:59 06:59 18:59 Intake Total 370 150 240 Output Total 575 500 Balance -205 -350 240 Weight 133.4 kg Intake: IV 50 150 0.9 @ 10mls 20 60 Furosemide 250 mg In 30 90 Sodium Chloride 0.9% 225 ml @ 15 MG/HR 15 mls/hr IVP .[id number] Rx#: [id number] Oral 320 240 Output: Urine 575 500 Other: Voiding Method Bedside Commode Bedside Commode Bedside Commode # Voids 1 # Bowel Movements 1 - Labs CBC & Chem 7: 03/03/16 06:06 03/03/16 06:06 Labs: Abnormal Lab Results - Last 24 Hours (Table) 03/02/16 03/02/16 03/02/16 Range/Units 11:47 17:00 20:51 WBC (3.8-10.6) k/uL RBC (3.80-5.40) m/uL Hgb (11.4-16.0) gm/dL Hct (34.0-46.0) % MCV (80.0-100.0) fL MCHC (31.0-37.0) g/dL RDW (11.5-15.5) % Lymphocytes # (1.0-4.8) k/uL PT (9.0-12.0) sec BUN (7-17) mg/dL Creatinine (0.52-1.04) mg/dL Glucose (74-99) mg/dL POC Glucose (mg/dL) 110 H 115 H 144 H (75-99) mg/dL 03/03/16 03/03/16 03/03/16 Range/Units 06:06 06:06 06:06 WBC 2.6 L (3.8-10.6) k/uL RBC 2.64 L (3.80-5.40) m/uL Hgb 7.9 L (11.4-16.0) gm/dL Hct 27.0 L (34.0-46.0) % MCV 102.1 H (80.0-100.0) fL MCHC 29.3 L (31.0-37.0) g/dL RDW 17.6 H (11.5-15.5) % Lymphocytes # 0.5 L (1.0-4.8) k/uL PT 22.1 H (9.0-12.0) sec BUN 33 H (7-17) mg/dL Creatinine 1.50 H (0.52-1.04) mg/dL Glucose 105 H (74-99) mg/dL POC Glucose (mg/dL) (75-99) mg/dL Assessment and Plan Plan: Assessment: #1. Nonoliguric acute kidney injury secondary to cardiorenal syndrome. Renal function stable with creatinine at 1.5 today. Unclear as to what her baseline renal function is. No evidence of hydronephrosis noted on renal ultrasound. Urinalysis is benign. #2. Mild hyperkalemia. Sample was hemolyzed. Renal failure and metabolic acidosis were also contributing factors. Resolved. #3. Metabolic acidosis secondary to acute kidney injury. Resolved. #4. Morbid obesity. #5. Systolic CHF with ejection fraction of 35%. #6. Right lower extremity ulcer. #7. Anemia. Iron deficiency present. Plan: Continue Lasix drip to be run at 15 mL an hour for now. Ferrlecit 125 mg IV daily for 3 days. Second dose today. Continue oral sodium bicarbonate supplementation. Repeat electrolytes in the morning.
[2016-03-03 11:58] LABS: Glucose,Whole Blood 132 mg/dL (75-99)
--- NOTE | 2016-03-03 14:01 | P.PN ---
Subjective Principal diagnosis: congestive heart failure This is a 76-year-old female with history of hypertension, hyperlipidemia, diabetes, renal failure, morbid obesity, chronic persistent atrial fibrillation, bilateral lower extremity ulcers, anemia, prior metallic aortic valve replacement, which patient states was performed in 2011 at [facility]. Her medical affairs director is Dr. Romero. Patient presented to the hospital with symptoms of increased swelling in her bilateral lower extremities with evidence of drainage from her legs, as well as ulcerations. She states that she has also been short of breath, positive PND and orthopnea. Patient has had recent admissions to [facility] and [facility] according to her, for the same reasons. Chest x-ray on admission here shows congestive cardiac failure. EKG atrial fibrillation with nonspecific ST-T wave changes. patient continues to be on a Lasix drip, continues to diurese well. creatinine today 1.5, hemoglobin 7.9, INR 2.3. Objective - Vital Signs Vital signs: Vital Signs Temp 97.6 F 03/03/16 11:59 Pulse 84 03/03/16 11:59 Resp 20 03/03/16 11:59 BP 120/63 03/03/16 11:59 Pulse Ox 97 03/03/16 11:59 Intake & Output 03/02/16 03/03/16 03/03/16 18:59 06:59 18:59 Intake Total 370 150 655 Output Total 575 500 Balance -205 -350 655 Weight 133.4 kg Intake: IV 50 150 75 0.9 @ 10mls 20 60 30 Furosemide 250 mg In 30 90 45 Sodium Chloride 0.9% 225 ml @ 15 MG/HR 15 mls/hr IVP .[id number] [facility]K Rx#: [id number] Intake, IV Titration 100 Amount Sodium Ferric Gluconat- 100 Sucrose 125 mg In Sodium Chloride 0.9% 100 ml @ 100 mls/hr IVPB DAILY MIK Rx#:[id number] Oral 320 480 Output: Urine 575 500 Other: Voiding Method Bedside Commode Bedside Commode Bedside Commode # Voids 1 1 # Bowel Movements 1 - Exam PHYSICAL EXAMINATION: HEENT: Head is atraumatic, normocephalic. Pupils equal, round. Neck is supple. There is elevated jugular venous pressure. HEART EXAMINATION: Heart S1-S2 irregularly irregular systolic murmur is heard. CHEST EXAMINATION: His reveal diminished air entry to bilateral bases. ABDOMEN: Soft, B's, nontender. Bowel sounds are heard. No organomegaly noted. EXTREMITIES: Doppler peripheral pulses with 2-3+ peripheral edema and no calf tenderness noted. Bilateral ulcerations, erythema noted. NEUROLOGIC patient is awake, alert and oriented -3. . - Labs CBC & Chem 7: 03/03/16 06:06 03/03/16 06:06 Labs: Abnormal Lab Results - Last 24 Hours (Table) 03/02/16 03/02/16 03/03/16 Range/Units 17:00 20:51 06:06 WBC (3.8-10.6) k/uL RBC (3.80-5.40) m/uL Hgb (11.4-16.0) gm/dL Hct (34.0-46.0) % MCV (80.0-100.0) fL MCHC (31.0-37.0) g/dL RDW (11.5-15.5) % Lymphocytes # (1.0-4.8) k/uL PT 22.1 H (9.0-12.0) sec BUN (7-17) mg/dL Creatinine (0.52-1.04) mg/dL Glucose (74-99) mg/dL POC Glucose (mg/dL) 115 H 144 H (75-99) mg/dL 03/03/16 03/03/16 03/03/16 Range/Units 06:06 06:06 11:49 WBC 2.6 L (3.8-10.6) k/uL RBC 2.64 L (3.80-5.40) m/uL Hgb 7.9 L (11.4-16.0) gm/dL Hct 27.0 L (34.0-46.0) % MCV 102.1 H (80.0-100.0) fL MCHC 29.3 L (31.0-37.0) g/dL RDW 17.6 H (11.5-15.5) % Lymphocytes # 0.5 L (1.0-4.8) k/uL PT (9.0-12.0) sec BUN 33 H (7-17) mg/dL Creatinine 1.50 H (0.52-1.04) mg/dL Glucose 105 H (74-99) mg/dL POC Glucose (mg/dL) 132 H (75-99) mg/dL Assessment and Plan Plan: Assessment and plan #1 congestive cardiac failure, systolic acute on chronic currently on a Lasix drip. Echocardiogram with Doppler study which was performed in October at [facility] revealed an ejection fraction of 35%, normally functioning bioprosthetic aortic valve and mild degree of mitral regurgitation. #2 history of metallic aortic valve replacement, on Coumadin, patient is not taking Coumadin for the past 7 days, INR subtherapeutic at 1.4. #3 chronic persistent atrial fibrillation #4 hypertension #5 diabetes #6 hyperlipidemia #7 bilateral leg and feet ulcerations #8 sleep apnea #9 obesity #10 non-Hodgkin's lymphoma #11 chronic anemia Plan INR is 2.3 today. Patient continues to diurese well we will continue IV Lasix drip. Monitor intake and output along with daily weights and daily lytes BUN and creatinine. DNP note has been reviewed, I agree with a documented findings and plan of care. Patient was seen and examined.
[2016-03-03 16:58] LABS: Glucose,Whole Blood 130 mg/dL (75-99)
[2016-03-03] MEDS: WARFARIN 7.5 MG TAB PO SCH (17:10)
[2016-03-03] MEDS: ATORVASTATIN 10 MG TAB PO SCH (20:03)
[2016-03-03 20:49] LABS: Glucose,Whole Blood 159 mg/dL (75-99)
--- NOTE | 2016-03-03 21:25 | PN ---
DATE OF SERVICE: 03/03/2016 PRESENTING COMPLAINT: Short of breath. INTERVAL HISTORY: This patient presented with CHF exacerbation. Continues to be on Lasix drips as well as oxygen. Sitting up on a chair. Patient's I&O are noted. Patient remains in good negative fluid balance. Edema is slowly coming down. Review of systems done for constitutional, cardiovascular, GI, pulmonary; relevant findings as above. Current medications include IV Lasix and Zaroxolyn. On examination, temperature 96.9, pulse 78, respiration 20, blood pressure 93/61, pulse ox 94% on room air. GENERAL APPEARANCE: Sitting up on a chair. Not in distress. EYES: Pupils equal. Conjunctivae normal. NECK: JVD unable to assess. Mass not palpable. RESPIRATORY: Effort increased. LUNGS: Diminished breath sounds. CARDIOVASCULAR: Heart sounds irregular. Edema coming down. ABDOMEN: Soft, nontender. Liver and spleen not palpable. PSYCHIATRY: Alert and oriented x3. Mood and affect normal. INVESTIGATIONS: White count 2.6, hemoglobin 7.9. Potassium 4.0. BUN 33, creatinine 1.5. ASSESSMENT: 1. Acute and chronic congestive heart failure exacerbation from systolic dysfunction; ejection fraction 45%; slow to respond from underlying hypertensive heart disease. 2. Hypertensive heart disease with moderate concentric left ventricular hypertrophy. 3. Moderate secondary pulmonary hypertension from congestive heart failure. 4. Secondary pulmonary hypertension from congestive heart failure. 5. Moderate pulmonary hypertension, non-rheumatic. 6. Moderate to severe mitral regurgitation, non-rheumatic. 7. Persistent atrial fibrillation, rate controlled. 8. Coumadin monitoring for therapeutic level. 9. Morbid obesity; body mass index of 49.5. 10. Hyperlipidemia. 11. Essential hypertension. 12. Medical debility; uses a cart to get about. 13. Right lower extremity venous ulcer, improving. 14. Chronic kidney disease, stage III, from nephrosclerosis. 15. Coumadin monitoring. PLAN: Continue current medication and treatment plan. Care was discussed with the patient. INR is 2.3. Continue with diuresis.
[2016-03-04] MEDS: Acetaminophen-Codeine 300-30mg TAB PO PRN (00:03)
[2016-03-04] MEDS: CEPHALEXIN 500 MG CAP PO SCH ×5 (00:04→23:02)
[2016-03-04 05:55] LABS: Glucose,Whole Blood 99 mg/dL (75-99)
[2016-03-04] MEDS: INSULIN LISPRO (humaLOG) 300 UNIT/3 ML VIAL SQ SCH ×4 (06:20→21:21)
[2016-03-04] MEDS: CARVEDILOL 12.5 MG TAB PO SCH ×2 (06:21→16:59)
[2016-03-04 06:24] LABS: Anisocytosis Slight; Basophils % (A) 1 %; CH 30.1; Eosinophils # (A) 0.1 k/uL (0-0.7); Eosinophils % (A) 2 %; HCT 26.4 % (34.0-46.0); HDW 2.78; Hypochromasia Marked; Luc % (Auto) 4; Lymphocytes # (A) 0.5 k/uL (1.0-4.8); Lymphocytes % (A) 18 %; MCH 30.7 pg (25.0-35.0); MCHC 30.4 g/dL (31.0-37.0); Macrocytosis Moderate; Mean Platelet Volume 7.5; Monocytes # (A) 0.2 k/uL (0-1.0); Monocytes % (A) 8 %; Neutrophils # (A) 1.9 k/uL (1.3-7.7); Neutrophils % (A) 68 %; RBC 2.62 m/uL (3.80-5.40); RDW 17.9 % (11.5-15.5); WBC 2.9 k/uL (3.8-10.6)
[2016-03-04 06:36] LABS: Calcium 9.3 mg/dL (8.4-10.2); Potassium 3.8 mmol/L (3.5-5.1)
[2016-03-04 06:41] LABS: INR 2.6 (<1.1); Prothrombin Time 25.2 sec (9.0-12.0)
[2016-03-04] MEDS: ALLOPURINOL 300 MG TAB PO SCH (08:42)
[2016-03-04] MEDS: ASPIRIN 81 MG CHEW PO SCH (08:42)
[2016-03-04] MEDS: SODIUM FERRIC GLUCONAT-SUCROSE 125 MG in SODIUM CHLORIDE 0.9% 100 ML IVPB SCH (08:42)
[2016-03-04] MEDS: METOLAZONE 2.5 MG TAB PO SCH (08:42)
[2016-03-04] MEDS: CHOLECALCIFEROL 1,000 UNIT TAB PO SCH (08:42)
[2016-03-04] MEDS: FERROUS SULFATE 325 MG TAB PO SCH (08:42)
--- NOTE | 2016-03-04 09:25 | P.PN ---
Subjective Patient is seen in follow-up for acute kidney injury. Renal function is moderately worsened with creatinine at 1.6. She is currently maintained on Lasix drip running at 15 mL an hour. She is nonoliguric. Edema is improving. Denies vomiting or diarrhea. Denies chest pain or shortness of breath. Vital signs are stable. General: The patient appeared well nourished and normally developed. HEENT: Head exam is unremarkable. Neck is without jugular venous distension. LUNGS: Lungs are clear to auscultation and percussion. Breath sounds decreased. HEART: Rate and Rhythm are regular. First and second heart sounds normal. No murmurs, rubs or gallops. ABDOMEN: Abdominal exam reveals normal bowel sounds. Non-tender and non- distended. No evidence of peritonitis. EXTREMITITES: 1+ edema. Objective - Vital Signs Vital signs: Vital Signs Temp 97.0 F L 03/04/16 08:00 Pulse 67 03/04/16 08:00 Resp 20 03/04/16 08:00 BP 111/49 03/04/16 08:00 Pulse Ox 96 03/04/16 08:00 Intake & Output 03/03/16 03/04/16 03/04/16 18:59 06:59 18:59 Intake Total 1266.75 300 118 Output Total 300 1200 Balance 966.75 -900 118 Weight 131.3 kg Intake: IV 275 300 0.9 @ 10mls 110 120 Furosemide 250 mg In 165 180 Sodium Chloride 0.9% 225 ml @ 15 MG/HR 15 mls/hr IVP .[id number] MIK Rx#: [id number] Intake, IV Titration 331.75 Amount Furosemide 250 mg In 231.75 Sodium Chloride 0.9% 225 ml @ 15 MG/HR 15 mls/hr IVP .[id number] MIK Rx#: [id number] Sodium Ferric Gluconat- 100 Sucrose 125 mg In Sodium Chloride 0.9% 100 ml @ 100 mls/hr IVPB DAILY MIK Rx#:[id number] Oral 660 118 Output: Urine 300 1200 Other: Voiding Method Bedside Commode Bedside Commode Bedside Commode # Voids 1 # Bowel Movements 1 - Labs CBC & Chem 7: 03/04/16 05:44 03/04/16 05:44 Labs: Abnormal Lab Results - Last 24 Hours (Table) 03/03/16 03/03/16 03/03/16 Range/Units 11:49 16:49 20:47 WBC (3.8-10.6) k/uL RBC (3.80-5.40) m/uL Hgb (11.4-16.0) gm/dL Hct (34.0-46.0) % MCV (80.0-100.0) fL MCHC (31.0-37.0) g/dL RDW (11.5-15.5) % Lymphocytes # (1.0-4.8) k/uL PT (9.0-12.0) sec BUN (7-17) mg/dL Creatinine (0.52-1.04) mg/dL POC Glucose (mg/dL) 132 H 130 H 159 H (75-99) mg/dL 03/04/16 03/04/16 03/04/16 Range/Units 05:44 05:44 05:44 WBC 2.9 L (3.8-10.6) k/uL RBC 2.62 L (3.80-5.40) m/uL Hgb 8.0 L (11.4-16.0) gm/dL Hct 26.4 L (34.0-46.0) % MCV 101.0 H (80.0-100.0) fL MCHC 30.4 L (31.0-37.0) g/dL RDW 17.9 H (11.5-15.5) % Lymphocytes # 0.5 L (1.0-4.8) k/uL PT 25.2 H (9.0-12.0) sec BUN 32 H (7-17) mg/dL Creatinine 1.62 H (0.52-1.04) mg/dL POC Glucose (mg/dL) (75-99) mg/dL Assessment and Plan Plan: Assessment: #1. Nonoliguric acute kidney injury secondary to cardiorenal syndrome. Renal function leading worsened with creatinine at 1.6 today. Unclear as to what her baseline renal function is. No evidence of hydronephrosis noted on renal ultrasound. Urinalysis is benign. #2. Mild hyperkalemia. Sample was hemolyzed. Renal failure and metabolic acidosis were also contributing factors. Resolved. #3. Metabolic acidosis secondary to acute kidney injury. Resolved. #4. Morbid obesity. #5. Systolic CHF with ejection fraction of 35%. #6. Right lower extremity ulcer. #7. Anemia. Iron deficiency present. Plan: Continue Lasix drip to be run at 15 mL an hour for now. Ferrlecit 125 mg IV daily for 3 days. Third dose today. Continue oral sodium bicarbonate supplementation. Repeat electrolytes in the morning. At the time of discharge, can transition to oral diuretics with Lasix 40 mg twice daily. She will need to get repeat blood work checked within 3-4 days of discharge and follow-up as an outpatient within the next 2 weeks.
[2016-03-04] MEDS: FUROSEMIDE 250 MG in SODIUM CHLORIDE 0.9% 225 ML IVP SCH (10:36)
[2016-03-04 11:47] LABS: Glucose,Whole Blood 134 mg/dL (75-99)
--- NOTE | 2016-03-04 15:30 | P.PN ---
Subjective Principal diagnosis: congestive heart failure This is a 76-year-old female with history of hypertension, hyperlipidemia, diabetes, renal failure, morbid obesity, chronic persistent atrial fibrillation, bilateral lower extremity ulcers, anemia, prior metallic aortic valve replacement, which patient states was performed in 2011 at [facility]. Her digital marketing apprentice is Dr. Romero. Patient presented to the hospital with symptoms of increased swelling in her bilateral lower extremities with evidence of drainage from her legs, as well as ulcerations. She states that she has also been short of breath, positive PND and orthopnea. Patient has had recent admissions to [facility] and [facility] according to her, for the same reasons. Chest x-ray on admission here shows congestive cardiac failure. EKG atrial fibrillation with nonspecific ST-T wave changes. patient continues to be on a Lasix drip, continues to diurese well. Weight is down 2 kg today. creatinine today 1.6, hemoglobin 8.0, INR 2.6. Patient continues each dated feel better overall. Objective - Vital Signs Vital signs: Vital Signs Temp 97.3 F L 03/04/16 11:37 Pulse 88 03/04/16 11:38 Resp 20 03/04/16 11:38 BP 106/57 03/04/16 11:37 Pulse Ox 94 L 03/04/16 11:37 Intake & Output 03/03/16 03/04/16 03/04/16 18:59 06:59 18:59 Intake Total 1266.75 300 486 Output Total 300 1200 Balance 966.75 -900 486 Weight 131.3 kg Intake: IV 275 300 0.9 @ 10mls 110 120 Furosemide 250 mg In 165 180 Sodium Chloride 0.9% 225 ml @ 15 MG/HR 15 mls/hr IVP .[id number] MIK Rx#: [id number] Intake, IV Titration 331.75 250 Amount Furosemide 250 mg In 231.75 250 Sodium Chloride 0.9% 225 ml @ 15 MG/HR 15 mls/hr IVP .[id number] MIK Rx#: [id number] Sodium Ferric Gluconat- 100 Sucrose 125 mg In Sodium Chloride 0.9% 100 ml @ 100 mls/hr IVPB DAILY MIK Rx#:[id number] Oral 660 236 Output: Urine 300 1200 Other: Voiding Method Bedside Commode Bedside Commode Bedside Commode # Voids 1 1 # Bowel Movements 1 1 - Exam PHYSICAL EXAMINATION: HEENT: Head is atraumatic, normocephalic. Pupils equal, round. Neck is supple. There is elevated jugular venous pressure. HEART EXAMINATION: Heart S1-S2 irregularly irregular systolic murmur is heard. CHEST EXAMINATION: His reveal diminished air entry to bilateral bases. ABDOMEN: Soft, B's, nontender. Bowel sounds are heard. No organomegaly noted. EXTREMITIES: Doppler peripheral pulses with 2-3+ peripheral edema and no calf tenderness noted. Bilateral ulcerations, erythema noted. NEUROLOGIC patient is awake, alert and oriented -3. . - Labs CBC & Chem 7: 03/04/16 05:44 03/04/16 05:44 Labs: Abnormal Lab Results - Last 24 Hours (Table) 03/03/16 03/03/16 03/04/16 Range/Units 16:49 20:47 05:44 WBC (3.8-10.6) k/uL RBC (3.80-5.40) m/uL Hgb (11.4-16.0) gm/dL Hct (34.0-46.0) % MCV (80.0-100.0) fL MCHC (31.0-37.0) g/dL RDW (11.5-15.5) % Lymphocytes # (1.0-4.8) k/uL PT 25.2 H (9.0-12.0) sec BUN (7-17) mg/dL Creatinine (0.52-1.04) mg/dL POC Glucose (mg/dL) 130 H 159 H (75-99) mg/dL 03/04/16 03/04/16 03/04/16 Range/Units 05:44 05:44 11:45 WBC 2.9 L (3.8-10.6) k/uL RBC 2.62 L (3.80-5.40) m/uL Hgb 8.0 L (11.4-16.0) gm/dL Hct 26.4 L (34.0-46.0) % MCV 101.0 H (80.0-100.0) fL MCHC 30.4 L (31.0-37.0) g/dL RDW 17.9 H (11.5-15.5) % Lymphocytes # 0.5 L (1.0-4.8) k/uL PT (9.0-12.0) sec BUN 32 H (7-17) mg/dL Creatinine 1.62 H (0.52-1.04) mg/dL POC Glucose (mg/dL) 134 H (75-99) mg/dL Assessment and Plan Plan: Assessment and plan #1 congestive cardiac failure, systolic acute on chronic currently on a Lasix drip. Echocardiogram with Doppler study which was performed in October at [facility] revealed an ejection fraction of 35%, normally functioning bioprosthetic aortic valve and mild degree of mitral regurgitation. #2 history of metallic aortic valve replacement, on Coumadin, patient is not taking Coumadin for the past 7 days prior to admission. #3 chronic persistent atrial fibrillation #4 hypertension #5 diabetes #6 hyperlipidemia #7 bilateral leg and feet ulcerations #8 sleep apnea #9 obesity #10 non-Hodgkin's lymphoma #11 chronic anemia Plan . Patient continues to diurese well we will continue IV Lasix drip. Monitor intake and output along with daily weights and daily lytes BUN and creatinine. DNP note has been reviewed, I agree with a documented findings and plan of care. Patient was seen and examined.
[2016-03-04] MEDS: SPIRONOLACTONE 25 MG TAB PO SCH ×2 (16:30→21:21)
[2016-03-04 16:55] LABS: Glucose,Whole Blood 167 mg/dL (75-99)
[2016-03-04] MEDS: WARFARIN 7.5 MG TAB PO SCH (16:59)
--- NOTE | 2016-03-04 17:20 | PN ---
DATE OF SERVICE: 03/04/2016 PRESENTING COMPLAINT: Short of breath, edema. INTERVAL HISTORY: Patient presented with CHF exacerbation, remains on Lasix drip. Continues to be up in a chair. Edema is slowly coming down, still present. Breathing is improving. Review of systems done for constitutional, cardiovascular, GI, pulmonary; relevant findings as above. Current medications are reviewed that include IV Lasix drip, Zaroxolyn. On examination, temperature 97.3, pulse 88, respirations 20, blood pressure 107/57. Pulse ox 94% on room air. GENERAL: Sitting up in a chair. Not in distress. Breathing is better. EYES: Pupils equal. Conjunctivae normal. NECK: JVD not raised. Mass not palpable. RESPIRATORY: Effort increased. LUNGS: Diminished breath sounds. CARDIOVASCULAR: Heart sounds irregular. Edema present. ABDOMEN: Soft, nontender. Liver and spleen not palpable. PSYCHIATRY: Alert and oriented, mood and affect is normal. INVESTIGATIONS: Potassium 2.9, hemoglobin 8, potassium 3.8, BUN 32, creatinine 1.62. ASSESSMENT: 1. Acute on chronic congestive heart failure exacerbation from systolic dysfunction; ejection fraction 45% from underlying hypertensive heart disease. 2. Hypertensive heart disease with moderate concentric left ventricular hypertrophy. 3. Moderate secondary pulmonary hypertension from congestive heart failure. 4. Secondary pulmonary hypertension from congestive heart failure. 5. Moderate pulmonary regurgitation, nonrheumatic. 6. Moderate to severe mitral regurgitation, nonrheumatic. 7. Persistent atrial fibrillation, rate controlled. 8. Coumadin monitoring with therapeutic level. 9. Morbid obesity, body mass index of 49.5. 10. Hyperlipidemia. 11. Essential hypertension. 12. Medical debility uses a cart to get about. 13. Right lower extremity venous ulcer improving. 14. Chronic kidney disease, stage III from nephrosclerosis. 15. Coumadin monitoring, INR 2.6. PLAN: Continue current medication and treatment plan. We will add Aldactone at this point and discontinue the Zaroxolyn. Follow.
[2016-03-04 20:40] LABS: Glucose,Whole Blood 206 mg/dL (75-99)
[2016-03-04] MEDS: ATORVASTATIN 10 MG TAB PO SCH (21:20)
[2016-03-05] MEDS: FUROSEMIDE 250 MG in SODIUM CHLORIDE 0.9% 225 ML IVP SCH ×2 (05:13→21:11)
[2016-03-05 06:02] LABS: Glucose,Whole Blood 115 mg/dL (75-99)
[2016-03-05 06:43] LABS: Anisocytosis Slight; Basophils % (A) 0 %; CH 30.1; CHCM 30.2; Eosinophils # (A) 0.1 k/uL (0-0.7); Eosinophils % (A) 2 %; HCT 28.6 % (34.0-46.0); HDW 2.89; HGB 8.8 gm/dL (11.4-16.0); Hypochromasia Marked; Luc # (Auto) 0.13; Luc % (Auto) 4; Lymphocytes # (A) 0.5 k/uL (1.0-4.8); Lymphocytes % (A) 14 %; MCHC 30.9 g/dL (31.0-37.0); MCV 100.4 fL (80.0-100.0); Macrocytosis Slight; Mean Platelet Volume 7.4; Monocytes # (A) 0.4 k/uL (0-1.0); Monocytes % (A) 10 %; Neutrophils # (A) 2.6 k/uL (1.3-7.7); Neutrophils % (A) 70 %; RBC 2.84 m/uL (3.80-5.40); RDW 18.1 % (11.5-15.5); WBC 3.7 k/uL (3.8-10.6); WBC (Perox) 3.96
[2016-03-05] MEDS: INSULIN LISPRO (humaLOG) 300 UNIT/3 ML VIAL SQ SCH ×4 (06:45→21:14)
[2016-03-05] MEDS: CARVEDILOL 12.5 MG TAB PO SCH ×2 (06:45→17:13)
[2016-03-05] MEDS: CEPHALEXIN 500 MG CAP PO SCH ×4 (06:45→22:52)
[2016-03-05 07:34] LABS: Calcium 9.5 mg/dL (8.4-10.2); Potassium 3.8 mmol/L (3.5-5.1)
[2016-03-05] MEDS ORDERED: POTASSIUM CHLORIDE ER 20 MEQ TAB.ER PO STA (08:27)
[2016-03-05] MEDS: FERROUS SULFATE 325 MG TAB PO SCH (09:05)
[2016-03-05] MEDS: CHOLECALCIFEROL 1,000 UNIT TAB PO SCH (09:05)
[2016-03-05] MEDS: SPIRONOLACTONE 25 MG TAB PO SCH ×2 (09:05→21:12)
[2016-03-05] MEDS: ASPIRIN 81 MG CHEW PO SCH (09:05)
[2016-03-05] MEDS: ALLOPURINOL 300 MG TAB PO SCH (09:05)
--- NOTE | 2016-03-05 09:27 | P.PN ---
Subjective Patient is seen in follow-up for acute kidney injury. Renal function is stable with creatinine at 1.6. She is currently maintained on Lasix drip running at 15 mL an hour. She is nonoliguric. Edema is improving. Denies vomiting or diarrhea. Denies chest pain or shortness of breath. Vital signs are stable. General: The patient appeared well nourished and normally developed. HEENT: Head exam is unremarkable. Neck is without jugular venous distension. LUNGS: Lungs are clear to auscultation and percussion. Breath sounds decreased. HEART: Rate and Rhythm are regular. First and second heart sounds normal. No murmurs, rubs or gallops. ABDOMEN: Abdominal exam reveals normal bowel sounds. Non-tender and non- distended. No evidence of peritonitis. EXTREMITITES: 1+ edema. Objective - Vital Signs Vital signs: Vital Signs Temp 97 F L 03/05/16 09:14 Pulse 83 03/05/16 09:14 Resp 20 03/05/16 09:14 BP 133/67 03/05/16 09:14 Pulse Ox 97 03/05/16 09:14 Intake & Output 03/04/16 03/05/16 03/05/16 18:59 06:59 18:59 Intake Total 986 520 Output Total 475 1475 Balance 511 -955 Weight 132.9 kg Intake: IV 300 210 0.9 @ 15mls 120 105 Furosemide 250 mg In 180 105 Sodium Chloride 0.9% 225 ml @ 15 MG/HR 15 mls/hr IVP .[id number] MIK Rx#: [id number] Intake, IV Titration 350 Amount Furosemide 250 mg In 250 Sodium Chloride 0.9% 225 ml @ 15 MG/HR 15 mls/hr IVP .[id number] MIK Rx#: [id number] Sodium Ferric Gluconat- 100 Sucrose 125 mg In Sodium Chloride 0.9% 100 ml @ 100 mls/hr IVPB DAILY MIK Rx#:[id number] Oral 336 Blood Product 310 Rc As-1 Unit 310 [id number] Output: Urine 475 1475 Other: Voiding Method Bedside Commode Bedside Commode Bedside Commode # Voids 1 1 # Bowel Movements 1 - Labs CBC & Chem 7: 03/05/16 06:07 03/05/16 06:07 Labs: Abnormal Lab Results - Last 24 Hours (Table) 03/04/16 03/04/16 03/04/16 Range/Units 11:45 15:35 16:54 WBC (3.8-10.6) k/uL RBC (3.80-5.40) m/uL Hgb (11.4-16.0) gm/dL Hct (34.0-46.0) % MCV (80.0-100.0) fL MCHC (31.0-37.0) g/dL RDW (11.5-15.5) % Lymphocytes # (1.0-4.8) k/uL BUN (7-17) mg/dL Creatinine (0.52-1.04) mg/dL Glucose (74-99) mg/dL POC Glucose (mg/dL) 134 H 167 H (75-99) mg/dL Magnesium (1.6-2.3) mg/dL Crossmatch See Detail 03/04/16 03/05/16 03/05/16 Range/Units 20:36 05:59 06:07 WBC 3.7 L (3.8-10.6) k/uL RBC 2.84 L (3.80-5.40) m/uL Hgb 8.8 L (11.4-16.0) gm/dL Hct 28.6 L (34.0-46.0) % MCV 100.4 H (80.0-100.0) fL MCHC 30.9 L (31.0-37.0) g/dL RDW 18.1 H (11.5-15.5) % Lymphocytes # 0.5 L (1.0-4.8) k/uL BUN (7-17) mg/dL Creatinine (0.52-1.04) mg/dL Glucose (74-99) mg/dL POC Glucose (mg/dL) 206 H 115 H (75-99) mg/dL Magnesium (1.6-2.3) mg/dL Crossmatch 03/05/16 03/05/16 Range/Units 06:07 06:07 WBC (3.8-10.6) k/uL RBC (3.80-5.40) m/uL Hgb (11.4-16.0) gm/dL Hct (34.0-46.0) % MCV (80.0-100.0) fL MCHC (31.0-37.0) g/dL RDW (11.5-15.5) % Lymphocytes # (1.0-4.8) k/uL BUN 33 H (7-17) mg/dL Creatinine 1.61 H (0.52-1.04) mg/dL Glucose 115 H (74-99) mg/dL POC Glucose (mg/dL) (75-99) mg/dL Magnesium 1.5 L (1.6-2.3) mg/dL Crossmatch Assessment and Plan Plan: Assessment: #1. Nonoliguric acute kidney injury secondary to cardiorenal syndrome. Renal function is stable with creatinine at 1.6 today. Unclear as to what her baseline renal function is. No evidence of hydronephrosis noted on renal ultrasound. Urinalysis is benign. #2. Mild hyperkalemia. Sample was hemolyzed. Renal failure and metabolic acidosis were also contributing factors. Resolved. #3. Metabolic acidosis secondary to acute kidney injury. Resolved. #4. Morbid obesity. #5. Systolic CHF with ejection fraction of 35%. #6. Right lower extremity ulcer. #7. Anemia. Iron deficiency present. Plan: Continue Lasix drip to be run at 15 mL an hour for now. Status post 3 doses of IV iron and completed on March 04. Continue oral sodium bicarbonate supplementation. Repeat electrolytes in the morning. At the time of discharge, can transition to oral diuretics with Lasix 40 mg twice daily. She will need to get repeat blood work checked within 3-4 days of discharge and follow-up as an outpatient within the next 2 weeks.
[2016-03-05 09:33] VITALS: BMI 47.2
[2016-03-05] MEDS: SODIUM BICARBONATE TAB 650 MG TAB PO SCH ×2 (09:48→21:11)
[2016-03-05] MEDS: SODIUM FERRIC GLUCONAT-SUCROSE 125 MG in SODIUM CHLORIDE 0.9% 100 ML IVPB SCH (12:01)
--- NOTE | 2016-03-05 14:20 | P.PN ---
Subjective Principal diagnosis: congestive heart failure This is a 76-year-old female with history of hypertension, hyperlipidemia, diabetes, renal failure, morbid obesity, chronic persistent atrial fibrillation, bilateral lower extremity ulcers, anemia, prior metallic aortic valve replacement, which patient states was performed in [address] [facility]. Her body sander is Dr. Romero. Patient presented to the hospital with symptoms of increased swelling in her bilateral lower extremities with evidence of drainage from her legs, as well as ulcerations. She states that she has also been short of breath, positive PND and orthopnea. Patient has had recent admissions to [facility] and [facility] according to her, for the same reasons. Chest x-ray on admission here shows congestive cardiac failure. EKG atrial fibrillation with nonspecific ST-T wave changes. patient continues to be on a Lasix drip, continues to diurese well. creatinine today 1.6, hemoglobin 8.0, INR 2.6. Patient continues each date to feel better overall. Objective - Vital Signs Vital signs: Vital Signs Temp 97.4 F L 03/05/16 12:30 Pulse 81 03/05/16 12:30 Resp 18 03/05/16 12:30 BP 105/53 03/05/16 12:30 Pulse Ox 95 03/05/16 12:30 Intake & Output 03/04/16 03/05/16 03/05/16 18:59 06:59 18:59 Intake Total 986 520 520 Output Total 475 1475 Balance 511 -560 520 Weight 132.9 kg 132.9 kg Intake: IV 300 210 180 0.9 @ 15mls 120 105 90 Furosemide 250 mg In 180 105 90 Sodium Chloride 0.9% 225 ml @ 15 MG/HR 15 mls/hr IVP .[id number] MIK Rx#: [id number] Intake, IV Titration 350 100 Amount Furosemide 250 mg In 250 Sodium Chloride 0.9% 225 ml @ 15 MG/HR 15 mls/hr IVP .[id number] MIK Rx#: [id number] Sodium Ferric Gluconat- 100 100 Sucrose 125 mg In Sodium Chloride 0.9% 100 ml @ 100 mls/hr IVPB DAILY MIK Rx#:[id number] Oral 336 240 Blood Product 310 Rc As-1 Unit 310 [id number] Output: Urine 475 1475 Other: Voiding Method Bedside Commode Bedside Commode Bedside Commode # Voids 1 1 1 # Bowel Movements 1 - Exam PHYSICAL EXAMINATION: HEENT: Head is atraumatic, normocephalic. Pupils equal, round. Neck is supple. There is elevated jugular venous pressure. HEART EXAMINATION: Heart S1-S2 irregularly irregular systolic murmur is heard. CHEST EXAMINATION: His reveal diminished air entry to bilateral bases. ABDOMEN: Soft, B's, nontender. Bowel sounds are heard. No organomegaly noted. EXTREMITIES: Doppler peripheral pulses with 2-3+ peripheral edema and no calf tenderness noted. Bilateral ulcerations, erythema noted. NEUROLOGIC patient is awake, alert and oriented -3. . - Labs CBC & Chem 7: 03/05/16 06:07 03/05/16 06:07 Labs: Abnormal Lab Results - Last 24 Hours (Table) 03/04/16 03/04/16 03/04/16 Range/Units 15:35 16:54 20:36 WBC (3.8-10.6) k/uL RBC (3.80-5.40) m/uL Hgb (11.4-16.0) gm/dL Hct (34.0-46.0) % MCV (80.0-100.0) fL MCHC (31.0-37.0) g/dL RDW (11.5-15.5) % Lymphocytes # (1.0-4.8) k/uL BUN (7-17) mg/dL Creatinine (0.52-1.04) mg/dL Glucose (74-99) mg/dL POC Glucose (mg/dL) 167 H 206 H (75-99) mg/dL Magnesium (1.6-2.3) mg/dL Crossmatch See Detail 03/05/16 03/05/16 03/05/16 Range/Units 05:59 06:07 06:07 WBC 3.7 L (3.8-10.6) k/uL RBC 2.84 L (3.80-5.40) m/uL Hgb 8.8 L (11.4-16.0) gm/dL Hct 28.6 L (34.0-46.0) % MCV 100.4 H (80.0-100.0) fL MCHC 30.9 L (31.0-37.0) g/dL RDW 18.1 H (11.5-15.5) % Lymphocytes # 0.5 L (1.0-4.8) k/uL BUN 33 H (7-17) mg/dL Creatinine 1.61 H (0.52-1.04) mg/dL Glucose 115 H (74-99) mg/dL POC Glucose (mg/dL) 115 H (75-99) mg/dL Magnesium (1.6-2.3) mg/dL Crossmatch 03/05/16 Range/Units 06:07 WBC (3.8-10.6) k/uL RBC (3.80-5.40) m/uL Hgb (11.4-16.0) gm/dL Hct (34.0-46.0) % MCV (80.0-100.0) fL MCHC (31.0-37.0) g/dL RDW (11.5-15.5) % Lymphocytes # (1.0-4.8) k/uL BUN (7-17) mg/dL Creatinine (0.52-1.04) mg/dL Glucose (74-99) mg/dL POC Glucose (mg/dL) (75-99) mg/dL Magnesium 1.5 L (1.6-2.3) mg/dL Crossmatch Assessment and Plan Plan: Assessment and plan #1 congestive cardiac failure, systolic acute on chronic currently on a Lasix drip. Echocardiogram with Doppler study which was performed in October at [facility] revealed an ejection fraction of 35%, normally functioning bioprosthetic aortic valve and mild degree of mitral regurgitation. #2 history of metallic aortic valve replacement, on Coumadin, patient is not taking Coumadin for the past 7 days prior to admission. #3 chronic persistent atrial fibrillation #4 hypertension #5 diabetes #6 hyperlipidemia #7 bilateral leg and feet ulcerations #8 sleep apnea #9 obesity #10 non-Hodgkin's lymphoma #11 chronic anemia Plan . Patient continues to diurese well we will continue IV Lasix drip. Monitor intake and output along with daily weights and daily lytes BUN and creatinine. DNP note has been reviewed, I agree with a documented findings and plan of care. Patient was seen and examined.
[2016-03-05 17:01] LABS: Glucose,Whole Blood 131 mg/dL (75-99)
[2016-03-05] MEDS: MAGNESIUM OXIDE 250 MG TAB PO SCH ×2 (17:14→21:11)
[2016-03-05 17:35] LABS: INR 3.8 (<1.1); Prothrombin Time 37.3 sec (9.0-12.0)
[2016-03-05] MEDS: WARFARIN 7.5 MG TAB PO SCH (17:48)
--- NOTE | 2016-03-05 18:15 | PN ---
DATE OF SERVICE: 03/05/2016 PRESENTING COMPLAINT: Short of breath, edema. INTERVAL HISTORY: This patient presented with CHF exacerbation, remains on Lasix drip, also underlying atrial fibrillation. Tolerating a diet, comfortable, diuresing well. Review of systems done for constitutional, cardiovascular, GI, pulmonary; relevant findings as above. Current medications are reviewed. The patient remains on: 1. Lasix drip and 2. Aldactone. On examination, temperature 97, pulse 83, respirations 18, blood pressure 130/85, pulse ox 97% on room air. GENERAL APPEARANCE: Sitting up in a chair, not in distress. EYES: Pupils equal. Conjunctivae normal. NECK: JVD not raised. Mass not palpable. RESPIRATORY: Effort increased. LUNGS: Diminished breath sounds. CARDIOVASCULAR: Heart sounds irregular. Edema present. ABDOMEN: Soft. Liver and spleen and spleen not palpable. PSYCHIATRY: Alert and oriented x3. Mood and affect were normal. INVESTIGATIONS: I's and O's appear to be negative. ASSESSMENT: 1. Acute on chronic congestive heart failure exacerbation from systolic dysfunction; ejection fraction 45%, underlying hypertensive heart disease. 2. Hypertensive heart disease, moderate concentric left ventricular hypertrophy. 3. Moderate secondary pulmonary hypertension from congestive heart failure. 4. Secondary pulmonary hypertension from congestive heart failure. 5. Moderate pulmonary regurgitation, nonrheumatic. 6. Moderate to severe mitral regurgitation, nonrheumatic. 7. Persistent atrial fibrillation, rate controlled. 8. Coumadin monitoring with therapeutic level. 9. Morbid obesity, body mass index of 49.5. 10. Hyperlipidemia. 11. Essential hypertension. 12. Medical debility. Uses a cart to get about. 13. Right lower extremity venous ulcer, improving. 14. Chronic kidney stage 3 from nephrosclerosis. 15. Coumadin monitoring. INR noted. INVESTIGATIONS: BUN 33, creatinine 1.61. PLAN: Continue current medication and treatment plan. Patient to remain on Lasix drip. Patient has significant fluid overload, though better than before. Will add hydrochlorothiazide 25 mg twice a day.
[2016-03-05 20:57] LABS: Glucose,Whole Blood 162 mg/dL (75-99)
[2016-03-05] MEDS: ATORVASTATIN 10 MG TAB PO SCH (21:11)
[2016-03-05] MEDS: HYDROCHLOROTHIAZIDE 25 MG TAB PO SCH (21:14)
[2016-03-06 06:26] LABS: Glucose,Whole Blood 104 mg/dL (75-99)
[2016-03-06] MEDS: INSULIN LISPRO (humaLOG) 300 UNIT/3 ML VIAL SQ SCH ×4 (06:37→20:47)
[2016-03-06 06:38] LABS: Calcium 9.4 mg/dL (8.4-10.2); Potassium 4.1 mmol/L (3.5-5.1)
[2016-03-06] MEDS: CEPHALEXIN 500 MG CAP PO SCH ×4 (06:38→23:28)
[2016-03-06] MEDS: CARVEDILOL 12.5 MG TAB PO SCH ×2 (06:38→15:52)
[2016-03-06] MEDS: CHOLECALCIFEROL 1,000 UNIT TAB PO SCH (07:35)
[2016-03-06] MEDS: SPIRONOLACTONE 25 MG TAB PO SCH ×2 (07:35→20:46)
[2016-03-06] MEDS: FERROUS SULFATE 325 MG TAB PO SCH (07:35)
[2016-03-06] MEDS: ALLOPURINOL 300 MG TAB PO SCH (07:35)
[2016-03-06] MEDS: ASPIRIN 81 MG CHEW PO SCH (07:35)
[2016-03-06] MEDS: SODIUM BICARBONATE TAB 650 MG TAB PO SCH ×2 (07:35→20:45)
[2016-03-06] MEDS: MAGNESIUM OXIDE 250 MG TAB PO SCH ×3 (07:35→20:46)
[2016-03-06] MEDS: HYDROCHLOROTHIAZIDE 25 MG TAB PO SCH ×2 (07:36→20:45)
--- NOTE | 2016-03-06 08:13 | P.PN ---
Subjective Patient is seen in follow-up for acute kidney injury. Renal function is mildly worsened with creatinine at 1.7 today. She is currently maintained on Lasix drip running at 15 mL an hour. She is nonoliguric. Edema is improving. Denies vomiting or diarrhea. Denies chest pain or shortness of breath. Vital signs are stable. General: The patient appeared well nourished and normally developed. HEENT: Head exam is unremarkable. Neck is without jugular venous distension. LUNGS: Lungs are clear to auscultation and percussion. Breath sounds decreased. HEART: Rate and Rhythm are regular. First and second heart sounds normal. No murmurs, rubs or gallops. ABDOMEN: Abdominal exam reveals normal bowel sounds. Non-tender and non- distended. No evidence of peritonitis. EXTREMITITES: 1+ edema. Objective - Vital Signs Vital signs: Vital Signs Temp 97 F L 03/06/16 07:33 Pulse 88 03/06/16 07:33 Resp 18 03/06/16 07:39 BP 144/76 03/06/16 07:33 Pulse Ox 94 L 03/06/16 07:33 Intake & Output 03/05/16 03/06/16 03/06/16 18:59 06:59 18:59 Intake Total 760 105 Output Total 1100 Balance -340 105 Weight 132.9 kg 135 kg Intake: IV 180 105 0.9 @ 15mls 90 105 Furosemide 250 mg In 90 Sodium Chloride 0.9% 225 ml @ 15 MG/HR 15 mls/hr IVP .[id number] MIK Rx#: [id number] Intake, IV Titration 100 Amount Sodium Ferric Gluconat- 100 Sucrose 125 mg In Sodium Chloride 0.9% 100 ml @ 100 mls/hr IVPB DAILY MIK Rx#:[id number] Oral 480 Output: Urine 1100 Other: Voiding Method Bedside Commode Bedside Commode Bedside Commode # Voids 1 # Bowel Movements 0 - Labs CBC & Chem 7: 03/05/16 06:07 03/06/16 05:53 Labs: Abnormal Lab Results - Last 24 Hours (Table) 03/05/16 03/05/16 03/05/16 Range/Units 06:07 06:07 16:40 PT 37.3 H (9.0-12.0) sec BUN (7-17) mg/dL Creatinine (0.52-1.04) mg/dL Glucose (74-99) mg/dL POC Glucose (mg/dL) 131 H (75-99) mg/dL Magnesium 1.5 L (1.6-2.3) mg/dL 03/05/16 03/06/16 03/06/16 Range/Units 20:55 05:53 06:24 PT (9.0-12.0) sec BUN 37 H (7-17) mg/dL Creatinine 1.70 H (0.52-1.04) mg/dL Glucose 102 H (74-99) mg/dL POC Glucose (mg/dL) 162 H 104 H (75-99) mg/dL Magnesium (1.6-2.3) mg/dL Assessment and Plan Plan: Assessment: #1. Nonoliguric acute kidney injury secondary to cardiorenal syndrome. Renal function is mildly worsened with creatinine at 1.7 today. Unclear as to what her baseline renal function is. No evidence of hydronephrosis noted on renal ultrasound. Urinalysis is benign. #2. Mild hyperkalemia. Sample was hemolyzed. Renal failure and metabolic acidosis were also contributing factors. Resolved. #3. Metabolic acidosis secondary to acute kidney injury. Resolved. #4. Morbid obesity. #5. Systolic CHF with ejection fraction of 35%. #6. Right lower extremity ulcer. #7. Anemia. Iron deficiency present. Plan: Increase Lasix drip to be run at 20 mL an hour for now. Thiazide diuretics were also added yesterday. Status post 3 doses of IV iron and completed on March 04. Continue oral sodium bicarbonate supplementation. Repeat electrolytes in the morning. At the time of discharge, can transition to oral diuretics with Lasix 40 mg twice daily. She will need to get repeat blood work checked within 3-4 days of discharge and follow-up as an outpatient within the next 2 weeks.
[2016-03-06 12:11] LABS: Glucose,Whole Blood 139 mg/dL (75-99)
[2016-03-06 12:15] LABS: INR 3.9 (<1.1); Prothrombin Time 38.3 sec (9.0-12.0)
--- NOTE | 2016-03-06 15:40 | P.PN ---
Subjective Principal diagnosis: CHF Is a pleasant 76-year-old female with a history of hypertension, hyperlipidemia, diabetes, renal failure, morbid obesity, chronic atrial fibrillation, bilateral lower extremity ulcers, anemia and prior uric valve replacement she presented to the hospital with symptoms of increased swelling in her bilateral lower extremities with evidence of drainage from her legs as well as ulcerations. She also had complaints of shortness of breath, PND and orthopnea. She has had recent admissions to [facility] as well as [facility] as well. 6 random admission showed congestive cardiac failure. EKG showed atrial fibrillation with nonspecific ST-T wave changes. Patient continues to be on Lasix drip as ordered by nephrology. BUN today is 37 and creatinine 1.7. Upon examination today, patient overall feels that she is doing better. She's continues to complain of lower extremity edema as well as ulcerations and redness to the bilateral lower legs. Her breathing is stable however she still continues to complain of orthopnea which is chronic issue for her if she routinely sleeps in a recliner. Objective - Vital Signs Vital signs: Vital Signs Temp 97 F L 03/06/16 07:33 Pulse 80 03/06/16 11:54 Resp 17 03/06/16 11:54 BP 122/68 03/06/16 11:54 Pulse Ox 95 03/06/16 11:54 Intake & Output 03/05/16 03/06/16 03/06/16 18:59 06:59 18:59 Intake Total 760 105 626.5 Output Total 1100 700 Balance -340 105 -73.5 Weight 132.9 kg 135 kg Intake: IV 180 105 80 0.9 @ 15mls 90 105 Furosemide 250 mg In 90 80 Sodium Chloride 0.9% 225 ml @ 15 MG/HR 15 mls/hr IVP .[id number] MIK Rx#: [id number] Intake, IV Titration 100 186.5 Amount Furosemide 250 mg In 186.5 Sodium Chloride 0.9% 225 ml @ 20 MG/HR 20 mls/hr IVP .[id number] MIK Rx#: [id number] Sodium Ferric Gluconat- 100 Sucrose 125 mg In Sodium Chloride 0.9% 100 ml @ 100 mls/hr IVPB DAILY MIK Rx#:[id number] Oral 480 360 Output: Urine 1100 700 Other: Voiding Method Bedside Commode Bedside Commode Bedside Commode # Voids 1 # Bowel Movements 0 0 - Exam PHYSICAL EXAMINATION: HEENT: Head is atraumatic, normocephalic. Pupils equal, round. Neck is supple. There is elevated jugular venous pressure. HEART EXAMINATION: Heart sounds irregularly irregular, S1 and S2 with a systolic murmur heard. CHEST EXAMINATION: Lungs are clear to auscultation and precussion. No chest wall tenderness is noted on palpation or with deep breathing. ABDOMEN: Soft, obese, nontender. Bowel sounds are heard. No organomegaly noted. EXTREMITIES: Doppler peripheral pulses with evidence of 2+ peripheral edema and no calf tenderness noted. Ulcerations and erythema noted to bilateral lower legs. NEUROLOGIC patient is awake, alert and oriented x3. . - Labs CBC & Chem 7: 03/05/16 06:07 03/06/16 05:53 Labs: Abnormal Lab Results - Last 24 Hours (Table) 03/05/16 03/05/16 03/05/16 Range/Units 06:07 16:40 20:55 PT 37.3 H (9.0-12.0) sec BUN (7-17) mg/dL Creatinine (0.52-1.04) mg/dL Glucose (74-99) mg/dL POC Glucose (mg/dL) 131 H 162 H (75-99) mg/dL 03/06/16 03/06/16 03/06/16 Range/Units 05:53 05:53 06:24 PT 38.3 H (9.0-12.0) sec BUN 37 H (7-17) mg/dL Creatinine 1.70 H (0.52-1.04) mg/dL Glucose 102 H (74-99) mg/dL POC Glucose (mg/dL) 104 H (75-99) mg/dL 03/06/16 Range/Units 11:43 PT (9.0-12.0) sec BUN (7-17) mg/dL Creatinine (0.52-1.04) mg/dL Glucose (74-99) mg/dL POC Glucose (mg/dL) 139 H (75-99) mg/dL Assessment and Plan Plan: Assessment and plan #1 congestive heart failure, systolic, acute on chronic #2 history of aortic valve replacement, on Coumadin, patient has not been taking Coumadin for the 7 days prior to admission #3 chronic atrial fibrillation #4 hypertension #5 diabetes #6 hyperlipidemia #7 bilateral lower leg cellulitis with leg and foot ulcerations #8 sleep apnea #9 obesity #10 anemia From cardiology's perspective, continue IV Lasix drip as ordered by nephrology. Continue to monitor daily weights, intake and output as well as renal function. We will continue to follow the patient and provide further recommendations accordingly. HAY SORTER note has been reviewed, I agree with a documented findings and plan of care. Patient was seen and examined.
[2016-03-06] MEDS: WARFARIN 7.5 MG TAB PO SCH (15:51)
[2016-03-06 16:49] LABS: Glucose,Whole Blood 200 mg/dL (75-99)
[2016-03-06] MEDS: ATORVASTATIN 10 MG TAB PO SCH (20:45)
[2016-03-06 20:47] LABS: Glucose,Whole Blood 153 mg/dL (75-99)
--- NOTE | 2016-03-06 21:59 | PN ---
DATE OF SERVICE: 03/06/2016 PRESENTING COMPLAINT: Short of breath. INTERVAL HISTORY: This patient presents with CHF exacerbation which remained on Lasix drip. Added hydrochlorothiazide yesterday. Patient continues to be in good negative fluid balance. Edema continues to come down. Review systems done for constitutional, cardiovascular, GI, pulmonary; relevant findings as above. Current medications are reviewed that include Lasix drip and hydrochlorothiazide, Aldactone. On examination, temperature 97.4, pulse 82, and respiratory rate 17, blood pressure 112/70, pulse ox 96% on room air. GENERAL APPEARANCE: Sitting in a chair, not in distress. EYES: Pupils equal. Conjunctivae normal. NECK: JVD is unable to assess. Mass not palpable. RESPIRATORY: Effort increased. LUNGS: Diminished breath sounds. CARDIOVASCULAR: Heart sounds irregular. Edema decreased but present. ABDOMEN: Soft, nontender. Liver and spleen not palpable. PSYCHIATRY: Alert and oriented x three. Mood and affect normal. INVESTIGATIONS: BUN 37, creatinine 1.70. ASSESSMENT: 1. Acute and chronic congestive heart failure exacerbation from systolic dysfunction; ejection fraction 45%, underlying hypertensive heart disease. 2. Hypertensive heart disease with moderate concentric left ventricular hypertrophy. 3. Moderate secondary pulmonary hypertension from congestive heart failure. 4. Secondary pulmonary hypertension from congestive heart failure. 5. Moderate pulmonary regurgitation, nonrheumatic. 6. Moderate to severe mitral regurgitation, nonrheumatic. 7. Persistent atrial fibrillation, rate controlled. 8. Coumadin monitoring. 9. Morbid obesity, body mass index of 49.5. 10. Hyperlipidemia. 11. Hypertension. 12. Medical debility uses a cart. 13. Right lower extremity venous ulcer improving. 14. Chronic kidney stage III, from nephrosclerosis. 15. Coumadin monitoring for INR. PLAN: Continue current medication and treatment plan. Patient will need another 24 hours of IV diuretics, overall doing better. The patient's care was discussed with the family at the bedside. We will also order Coumadin to get alternate between 7.5 and 5 mg.
[2016-03-06] MEDS: Acetaminophen-Codeine 300-30mg TAB PO PRN (23:28)
[2016-03-07] MEDS: FUROSEMIDE 250 MG in SODIUM CHLORIDE 0.9% 225 ML IVP SCH ×5 (04:19→17:31)
[2016-03-07 06:25] LABS: Glucose,Whole Blood 184 mg/dL (75-99)
[2016-03-07] MEDS: INSULIN LISPRO (humaLOG) 300 UNIT/3 ML VIAL SQ SCH ×4 (06:54→21:34)
[2016-03-07] MEDS: CEPHALEXIN 500 MG CAP PO SCH ×4 (06:54→23:11)
[2016-03-07] MEDS: CARVEDILOL 12.5 MG TAB PO SCH ×2 (06:55→17:28)
[2016-03-07 07:48] LABS: Calcium 9.4 mg/dL (8.4-10.2); Potassium 4.2 mmol/L (3.5-5.1)
[2016-03-07] MEDS: ASPIRIN 81 MG CHEW PO SCH (08:43)
[2016-03-07] MEDS: CHOLECALCIFEROL 1,000 UNIT TAB PO SCH (08:43)
[2016-03-07] MEDS: SPIRONOLACTONE 25 MG TAB PO SCH ×2 (08:43→20:11)
[2016-03-07] MEDS: SODIUM BICARBONATE TAB 650 MG TAB PO SCH ×2 (08:43→20:10)
[2016-03-07] MEDS: HYDROCHLOROTHIAZIDE 25 MG TAB PO SCH ×2 (08:43→20:10)
[2016-03-07] MEDS: FERROUS SULFATE 325 MG TAB PO SCH (08:43)
[2016-03-07] MEDS: MAGNESIUM OXIDE 250 MG TAB PO SCH ×3 (08:43→20:11)
[2016-03-07] MEDS: ALLOPURINOL 300 MG TAB PO SCH (08:44)
--- NOTE | 2016-03-07 09:49 | P.PN ---
Subjective Patient is seen in follow-up for acute kidney injury. Renal function is mildly worsened with creatinine at 1.8 today. She is currently maintained on Lasix drip running at 15 mL an hour. She is nonoliguric. Edema is improving. Denies vomiting or diarrhea. Denies chest pain or shortness of breath. Vital signs are stable. General: The patient appeared well nourished and normally developed. HEENT: Head exam is unremarkable. Neck is without jugular venous distension. LUNGS: Lungs are clear to auscultation and percussion. Breath sounds decreased. HEART: Rate and Rhythm are regular. First and second heart sounds normal. No murmurs, rubs or gallops. ABDOMEN: Abdominal exam reveals normal bowel sounds. Non-tender and non- distended. No evidence of peritonitis. EXTREMITITES: 1+ edema. Objective - Vital Signs Vital signs: Vital Signs Temp 96.7 F L 03/07/16 08:00 Pulse 74 03/07/16 08:00 Resp 18 03/07/16 08:00 BP 98/47 03/07/16 08:00 Pulse Ox 98 03/07/16 08:00 Intake & Output 03/06/16 03/07/16 03/07/16 18:59 06:59 18:59 Intake Total 746.5 1064.5 300 Output Total 1500 1 Balance -753.5 1063.5 300 Weight 134.9 kg Intake: IV 80 350 0.9 @ 15mls 150 Furosemide 250 mg In 80 200 Sodium Chloride 0.9% 225 ml @ 15 MG/HR 15 mls/hr IVP .[id number] MIK Rx#: [id number] Intake, IV Titration 186.5 114.5 Amount Furosemide 250 mg In 186.5 114.5 Sodium Chloride 0.9% 225 ml @ 20 MG/HR 20 mls/hr IVP .[id number] MIK Rx#: [id number] Oral 480 600 300 Output: Urine 1500 1 Other: Voiding Method Bedside Commode Bedside Commode # Voids 1 # Bowel Movements 0 - Labs CBC & Chem 7: 03/05/16 06:07 03/07/16 06:56 Labs: Abnormal Lab Results - Last 24 Hours (Table) 03/06/16 03/06/16 03/06/16 Range/Units 05:53 11:43 16:38 PT 38.3 H (9.0-12.0) sec BUN (7-17) mg/dL Creatinine (0.52-1.04) mg/dL Glucose (74-99) mg/dL POC Glucose (mg/dL) 139 H 200 H (75-99) mg/dL 03/06/16 03/07/16 03/07/16 Range/Units 20:46 06:23 06:56 PT (9.0-12.0) sec BUN 40 H (7-17) mg/dL Creatinine 1.80 H (0.52-1.04) mg/dL Glucose 129 H (74-99) mg/dL POC Glucose (mg/dL) 153 H 184 H (75-99) mg/dL Assessment and Plan Plan: Assessment: #1. Nonoliguric acute kidney injury secondary to cardiorenal syndrome. Renal function is mildly worsened with creatinine at 1.8 today. Unclear as to what her baseline renal function is. No evidence of hydronephrosis noted on renal ultrasound. Urinalysis is benign. #2. Mild hyperkalemia. Sample was hemolyzed. Renal failure and metabolic acidosis were also contributing factors. Resolved. #3. Metabolic acidosis secondary to acute kidney injury. Resolved. #4. Morbid obesity. #5. Systolic CHF with ejection fraction of 35%. #6. Right lower extremity ulcer. #7. Anemia. Iron deficiency present. Plan: Continue Lasix drip to be run at 20 mL an hour for now. Also on thiazide diuretics. Status post 3 doses of IV iron and completed on March 04. Continue oral sodium bicarbonate supplementation. Repeat electrolytes in the morning. At the time of discharge, can transition to oral diuretics with Lasix 40 mg twice daily. She will need to get repeat blood work checked within 3-4 days of discharge and follow-up as an outpatient within the next 2 weeks.
[2016-03-07 11:42] LABS: Glucose,Whole Blood 120 mg/dL (75-99)
--- NOTE | 2016-03-07 12:59 | P.PN ---
Subjective Principal diagnosis: CHF Is a pleasant 76-year-old female with a history of hypertension, hyperlipidemia, diabetes, renal failure, morbid obesity, chronic atrial fibrillation, bilateral lower extremity ulcers, anemia and prior uric valve replacement she presented to the hospital with symptoms of increased swelling in her bilateral lower extremities with evidence of drainage from her legs as well as ulcerations. She also had complaints of shortness of breath, PND and orthopnea. She has had recent admissions to [facility] as well as [facility] as well. 6 random admission showed congestive cardiac failure. EKG showed atrial fibrillation with nonspecific ST-T wave changes. Patient continues to be on Lasix drip as ordered by nephrology. BUN today is 37 and creatinine 1.7. Upon examination today, patient overall feels that she is doing better. She's continues to complain of lower extremity edema which she feels has improved since yesterday as well as ulcerations and redness to the bilateral lower legs. Her breathing is stable however she still continues to complain of orthopnea which is chronic issue for her if she routinely sleeps in a recliner. Objective - Vital Signs Vital signs: Vital Signs Temp 96.7 F L 03/07/16 08:00 Pulse 74 03/07/16 08:00 Resp 18 03/07/16 08:00 BP 98/47 03/07/16 08:00 Pulse Ox 98 03/07/16 08:00 Intake & Output 03/06/16 03/07/16 03/07/16 18:59 06:59 18:59 Intake Total 746.5 1064.5 300 Output Total 1500 1 Balance -753.5 1063.5 300 Weight 134.9 kg Intake: IV 80 350 0.9 @ 15mls 150 Furosemide 250 mg In 80 200 Sodium Chloride 0.9% 225 ml @ 15 MG/HR 15 mls/hr IVP .[id number] MIK Rx#: [id number] Intake, IV Titration 186.5 114.5 Amount Furosemide 250 mg In 186.5 114.5 Sodium Chloride 0.9% 225 ml @ 20 MG/HR 20 mls/hr IVP .[id number] MIK Rx#: [id number] Oral 480 600 300 Output: Urine 1500 1 Other: Voiding Method Bedside Commode Bedside Commode # Voids 1 # Bowel Movements 0 - Exam PHYSICAL EXAMINATION: HEENT: Head is atraumatic, normocephalic. Pupils equal, round. Neck is supple. There is elevated jugular venous pressure. HEART EXAMINATION: Heart sounds irregularly irregular, S1 and S2 with a systolic murmur heard. CHEST EXAMINATION: Lungs are clear to auscultation and precussion. No chest wall tenderness is noted on palpation or with deep breathing. ABDOMEN: Soft, obese, nontender. Bowel sounds are heard. No organomegaly noted. EXTREMITIES: Doppler peripheral pulses with evidence of 1+ peripheral edema and no calf tenderness noted. Ulcerations and erythema noted to bilateral lower legs. NEUROLOGIC patient is awake, alert and oriented x3. . - Labs CBC & Chem 7: 03/05/16 06:07 03/07/16 06:56 Labs: Abnormal Lab Results - Last 24 Hours (Table) 03/06/16 03/06/16 03/07/16 Range/Units 16:38 20:46 06:23 BUN (7-17) mg/dL Creatinine (0.52-1.04) mg/dL Glucose (74-99) mg/dL POC Glucose (mg/dL) 200 H 153 H 184 H (75-99) mg/dL 03/07/16 03/07/16 Range/Units 06:56 11:41 BUN 40 H (7-17) mg/dL Creatinine 1.80 H (0.52-1.04) mg/dL Glucose 129 H (74-99) mg/dL POC Glucose (mg/dL) 120 H (75-99) mg/dL Assessment and Plan Plan: Assessment and plan #1 congestive heart failure, systolic, acute on chronic #2 history of aortic valve replacement, on Coumadin, patient has not been taking Coumadin for the 7 days prior to admission #3 chronic atrial fibrillation #4 hypertension #5 diabetes #6 hyperlipidemia #7 bilateral lower leg cellulitis with leg and foot ulcerations #8 sleep apnea #9 obesity #10 anemia #11 moderate to severe mitral regurgitation From cardiology's perspective, continue IV Lasix drip as ordered by nephrology. Continue to monitor daily weights, intake and output as well as renal function. We will continue to follow the patient and provide further recommendations accordingly. TEACHING ASSISTANT note has been reviewed, I agree with a documented findings and plan of care. Patient was seen and examined.
[2016-03-07 14:49] LABS: INR 3.8 (<1.1); Prothrombin Time 37.6 sec (9.0-12.0)
[2016-03-07 16:42] LABS: Glucose,Whole Blood 186 mg/dL (75-99)
[2016-03-07] MEDS ORDERED: WARFARIN 5 MG TAB PO SCH (18:00)
--- NOTE | 2016-03-07 19:10 | PN ---
DATE OF SERVICE: 03/07/2016 PRESENTING COMPLAINT: Short of breath. INTERVAL HISTORY: This is a patient who presented with CHF exacerbation, remains on Lasix drip, continues to be in negative fluid balance. Edema is still present. Sitting up in a chair. Breathing is stable, tolerating a diet. Review of systems done for constitutional, cardiovascular, GI, pulmonary; relevant findings above. Current medications are reviewed that include: 1. Lasix drip. 2. Aldactone. On examination, temperature 96.7, pulse 74, respirations 18, blood pressure 198/47, pulse ox 98% on room air. GENERAL APPEARANCE: Sitting up in a chair, not in distress. EYES: Pupils equal. Conjunctivae normal. NECK: JVD not raised. Mass not palpable. RESPIRATORY: Effort increased. LUNGS: Diminished breath sounds. CARDIOVASCULAR: Heart sounds irregular. Edema decreased, but still present. ABDOMEN: Soft, nontender. Liver and spleen and spleen not palpable. PSYCHIATRY: Alert and oriented x3. Mood and affect were normal. INVESTIGATIONS: INR 3.8. Potassium 4.2, BUN 48, creatinine 1.80. ASSESSMENT: 1. Acute on chronic congestive heart failure exacerbation from systolic dysfunction; ejection fraction 45% from underlying hypertensive heart disease. 2. Hypertensive heart disease with moderate concentric left ventricular hypertrophy. 3. Moderate secondary pulmonary hypertension from congestive heart failure. 4. Secondary pulmonary hypertension from congestive heart failure. 5. Moderate pulmonary regurgitation, nonrheumatic. 6. Moderate to severe mitral regurgitation, nonrheumatic. 7. Persistent atrial fibrillation, rate controlled. 8. Coumadin monitoring. 9. Morbid obesity, body mass index of 49.5. 10. Hyperlipidemia. 11. Hypertension. 12. Medical debility, uses a cart. 13. Right lower extremity venous ulcer, improving. 14. Chronic kidney, stage 3 from nephrosclerosis. 15. Coumadin monitoring per INR. PLAN: Continue current medication and treatment plan. Patient's dose of Coumadin was adjusted yesterday. Follow. Care was discussed with the patient.
[2016-03-07] MEDS: ATORVASTATIN 10 MG TAB PO SCH (20:10)
[2016-03-07 21:26] LABS: Glucose,Whole Blood 143 mg/dL (75-99)
[2016-03-08 06:27] LABS: Glucose,Whole Blood 112 mg/dL (75-99)
[2016-03-08 06:40] LABS: Calcium 9.6 mg/dL (8.4-10.2); Magnesium 1.8 mg/dL (1.6-2.3); Potassium 4.1 mmol/L (3.5-5.1)
[2016-03-08 06:45] LABS: Anisocytosis Slight; Basophils % (A) 1 %; CH 30.1; CHCM 29.6; Eosinophils # (A) 0.1 k/uL (0-0.7); Eosinophils % (A) 2 %; HCT 28.8 % (34.0-46.0); HDW 2.77; HGB 8.6 gm/dL (11.4-16.0); Hypochromasia Marked; Luc # (Auto) 0.08; Luc % (Auto) 3; Lymphocytes # (A) 0.5 k/uL (1.0-4.8); Lymphocytes % (A) 16 %; MCH 30.6 pg (25.0-35.0); MCHC 29.9 g/dL (31.0-37.0); MCV 102.4 fL (80.0-100.0); Macrocytosis Moderate; Mean Platelet Volume 7.8; Monocytes # (A) 0.3 k/uL (0-1.0); Monocytes % (A) 10 %; Neutrophils # (A) 2.1 k/uL (1.3-7.7); Neutrophils % (A) 68 %; RBC 2.82 m/uL (3.80-5.40); RDW 18.8 % (11.5-15.5); WBC 3.1 k/uL (3.8-10.6); WBC (Perox) 3.31
[2016-03-08] MEDS: INSULIN LISPRO (humaLOG) 300 UNIT/3 ML VIAL SQ SCH ×4 (06:49→21:47)
[2016-03-08] MEDS: CARVEDILOL 12.5 MG TAB PO SCH ×2 (06:50→17:15)
[2016-03-08] MEDS: FUROSEMIDE 250 MG in SODIUM CHLORIDE 0.9% 225 ML IVP SCH ×2 (06:56→21:44)
[2016-03-08] MEDS: MAGNESIUM OXIDE 250 MG TAB PO SCH ×3 (08:39→21:46)
[2016-03-08] MEDS: SODIUM BICARBONATE TAB 650 MG TAB PO SCH ×2 (08:39→21:46)
[2016-03-08] MEDS: ALLOPURINOL 300 MG TAB PO SCH (08:39)
[2016-03-08] MEDS: FERROUS SULFATE 325 MG TAB PO SCH (08:39)
[2016-03-08] MEDS: CEPHALEXIN 500 MG CAP PO SCH ×3 (08:39→23:16)
[2016-03-08] MEDS: SPIRONOLACTONE 25 MG TAB PO SCH ×2 (08:39→21:46)
[2016-03-08] MEDS: CHOLECALCIFEROL 1,000 UNIT TAB PO SCH (08:39)
[2016-03-08] MEDS: HYDROCHLOROTHIAZIDE 25 MG TAB PO SCH ×2 (08:39→21:46)
[2016-03-08] MEDS: ASPIRIN 81 MG CHEW PO SCH (08:39)
[2016-03-08 08:46] LABS: INR 3.7 (<1.1); Prothrombin Time 36.4 sec (9.0-12.0)
--- NOTE | 2016-03-08 09:22 | P.PN ---
Subjective Patient is seen in follow-up for acute kidney injury. Renal function is stable with creatinine at 1.7 today. She is currently maintained on Lasix drip running at 15 mL an hour. She is nonoliguric. Edema is improving. Denies vomiting or diarrhea. Denies chest pain or shortness of breath. Vital signs are stable. General: The patient appeared well nourished and normally developed. HEENT: Head exam is unremarkable. Neck is without jugular venous distension. LUNGS: Lungs are clear to auscultation and percussion. Breath sounds decreased. HEART: Rate and Rhythm are regular. First and second heart sounds normal. No murmurs, rubs or gallops. ABDOMEN: Abdominal exam reveals normal bowel sounds. Non-tender and non- distended. No evidence of peritonitis. EXTREMITITES: 1+ edema. Objective - Vital Signs Vital signs: Vital Signs Temp 97.0 F L 03/08/16 04:00 Pulse 80 03/08/16 04:00 Resp 18 03/08/16 04:00 BP 114/65 03/08/16 04:00 Pulse Ox 93 L 03/08/16 04:00 Intake & Output 03/07/16 03/08/16 03/08/16 18:59 06:59 18:59 Intake Total 1091 1560 240 Output Total 900 400 Balance 191 1160 240 Intake: IV 280 350 0.9 @ 15mls 120 150 Furosemide 250 mg In 160 200 Sodium Chloride 0.9% 225 ml @ 15 MG/HR 15 mls/hr IVP .[id number] MIK Rx#: [id number] Intake, IV Titration 213 250 Amount Furosemide 250 mg In 213 250 Sodium Chloride 0.9% 225 ml @ 20 MG/HR 20 mls/hr IVP .[id number] MIK Rx#: [id number] Oral 598 960 240 Output: Urine 900 400 Other: Voiding Method Bedside Commode # Voids 2 - Labs CBC & Chem 7: 03/08/16 06:11 03/08/16 06:11 Labs: Abnormal Lab Results - Last 24 Hours (Table) 03/07/16 03/07/16 03/07/16 Range/Units 11:41 14:06 16:40 WBC (3.8-10.6) k/uL RBC (3.80-5.40) m/uL Hgb (11.4-16.0) gm/dL Hct (34.0-46.0) % MCV (80.0-100.0) fL MCHC (31.0-37.0) g/dL RDW (11.5-15.5) % Lymphocytes # (1.0-4.8) k/uL PT 37.6 H (9.0-12.0) sec BUN (7-17) mg/dL Creatinine (0.52-1.04) mg/dL Glucose (74-99) mg/dL POC Glucose (mg/dL) 120 H 186 H (75-99) mg/dL 03/07/16 03/08/16 03/08/16 Range/Units 21:15 06:11 06:11 WBC 3.1 L (3.8-10.6) k/uL RBC 2.82 L (3.80-5.40) m/uL Hgb 8.6 L (11.4-16.0) gm/dL Hct 28.8 L (34.0-46.0) % MCV 102.4 H (80.0-100.0) fL MCHC 29.9 L (31.0-37.0) g/dL RDW 18.8 H (11.5-15.5) % Lymphocytes # 0.5 L (1.0-4.8) k/uL PT (9.0-12.0) sec BUN 43 H (7-17) mg/dL Creatinine 1.70 H (0.52-1.04) mg/dL Glucose 119 H (74-99) mg/dL POC Glucose (mg/dL) 143 H (75-99) mg/dL 03/08/16 03/08/16 Range/Units 06:11 06:24 WBC (3.8-10.6) k/uL RBC (3.80-5.40) m/uL Hgb (11.4-16.0) gm/dL Hct (34.0-46.0) % MCV (80.0-100.0) fL MCHC (31.0-37.0) g/dL RDW (11.5-15.5) % Lymphocytes # (1.0-4.8) k/uL PT 36.4 H (9.0-12.0) sec BUN (7-17) mg/dL Creatinine (0.52-1.04) mg/dL Glucose (74-99) mg/dL POC Glucose (mg/dL) 112 H (75-99) mg/dL Assessment and Plan Plan: Assessment: #1. Nonoliguric acute kidney injury secondary to cardiorenal syndrome. Renal function is stable with creatinine at 1.7 today. Unclear as to what her baseline renal function is. No evidence of hydronephrosis noted on renal ultrasound. Urinalysis is benign. #2. Mild hyperkalemia. Sample was hemolyzed. Renal failure and metabolic acidosis were also contributing factors. Resolved. #3. Metabolic acidosis secondary to acute kidney injury. Resolved. #4. Morbid obesity. #5. Systolic CHF with ejection fraction of 35%. #6. Right lower extremity ulcer. #7. Anemia. Iron deficiency present. Plan: Continue Lasix drip to be run at 20 mL an hour for now. Also on thiazide diuretics. Status post 3 doses of IV iron and completed on March 04. Continue oral sodium bicarbonate supplementation. Repeat electrolytes in the morning. At the time of discharge, can transition to oral diuretics with Lasix 40 mg twice daily. She will need to get repeat blood work checked within 3-4 days of discharge and follow-up as an outpatient within the next 2 weeks. She is advised to follow a low-salt diet and to monitor her weights closely.
[2016-03-08 11:46] LABS: Glucose,Whole Blood 165 mg/dL (75-99)
--- NOTE | 2016-03-08 14:22 | PN ---
Alicja Naranjo is a 76-year-old female who has severe fluid overload and is on high dose IV Lasix. She has been here for a long time. She was initially seen by Dr. Mendoza. She has a history of hypertension, dyslipidemia, diabetes, chronic renal failure and bilateral lower extremity ulcers with severe edema. She looks well. She is not short of breath. Vitals are stable. While she still has significant swelling, there is no ankle edema at this time. Blood pressure is 117/68 mmHg, respirations 16 to 18, pulse in the 80s, afebrile, 96.8. Head and neck examination is normal. Heart sounds S1, S2 are soft. Breath sounds are equal bilaterally. No crackles audible. IMPRESSION: 1. Severe lower extremity edema. 2. Chronic kidney disease. 3. Left ventricular ejection fraction is mildly reduced. 4. Moderate to severe mitral regurgitation. 5. She has a bioprosthetic aortic valve. SUGGEST: Lasix treatment per Nephrology. She would benefit probably from twice weekly outpatient IV Lasix in addition to oral Lasix at home. I did discuss the possibility of dobutamine infusion to help her along, but I do not think this will have much of an impact especially since she has severe mitral regurgitation. In the long run, it would not really have much of an impact while her ejection fraction is about 45% to 50%, she has fairly significant mitral regurgitation and her right ventricular systolic pressure is also elevated at 52 mmHg and she has bioprosthetic aortic valve. Continue on Lasix per Nephrology.
[2016-03-08 16:38] LABS: Glucose,Whole Blood 123 mg/dL (75-99)
[2016-03-08] MEDS ORDERED: WARFARIN 7.5 MG TAB PO SCH (18:00)
[2016-03-08] MEDS ORDERED: WARFARIN 2 MG TAB PO ONE (18:00)
[2016-03-08 21:44] LABS: Glucose,Whole Blood 155 mg/dL (75-99)
[2016-03-08] MEDS: ATORVASTATIN 10 MG TAB PO SCH (21:45)
[2016-03-08] MEDS: Acetaminophen-Codeine 300-30mg TAB PO PRN (21:50)
[2016-03-09] MEDS: INSULIN LISPRO (humaLOG) 300 UNIT/3 ML VIAL SQ SCH ×2 (06:51→12:24)
[2016-03-09] MEDS: CARVEDILOL 12.5 MG TAB PO SCH (06:52)
[2016-03-09 07:02] LABS: Glucose,Whole Blood 101 mg/dL (75-99)
[2016-03-09 07:14] LABS: INR 3.7 (<1.1); Prothrombin Time 36.1 sec (9.0-12.0)
[2016-03-09 07:30] LABS: Calcium 9.6 mg/dL (8.4-10.2); Magnesium 1.9 mg/dL (1.6-2.3); Potassium 4.3 mmol/L (3.5-5.1)
[2016-03-09 08:49] VITALS: TEMP 96.7
--- NOTE | 2016-03-09 09:14 | P.PN ---
Subjective Patient is seen in follow-up for acute kidney injury. Renal function mildly worse with creatinine at 1.84 today. She is currently maintained on Lasix drip running at 20 mL an hour. She is nonoliguric. Edema is improving. Denies vomiting or diarrhea. Denies chest pain or shortness of breath. Vital signs are stable. General: The patient appeared well nourished and normally developed. HEENT: Head exam is unremarkable. Neck is without jugular venous distension. LUNGS: Lungs are clear to auscultation and percussion. Breath sounds decreased. HEART: Rate and Rhythm are regular. First and second heart sounds normal. No murmurs, rubs or gallops. ABDOMEN: Abdominal exam reveals normal bowel sounds. Non-tender and non- distended. No evidence of peritonitis. EXTREMITITES: 1+ edema. Objective - Vital Signs Vital signs: Vital Signs Temp 96.7 F L 03/09/16 08:45 Pulse 79 03/09/16 08:45 Resp 12 03/09/16 08:50 BP 108/47 03/09/16 08:45 Pulse Ox 95 03/09/16 08:45 Intake & Output 03/08/16 03/09/16 03/09/16 18:59 06:59 18:59 Intake Total 985 565 240 Output Total 600 1150 350 Balance 385 -585 -110 Weight 134.5 kg Intake: IV 385 315 0.9 @ 15mls 165 135 Furosemide 250 mg In 220 Sodium Chloride 0.9% 225 ml @ 15 MG/HR 15 mls/hr IVP .[id number] MIK Rx#: [id number] Furosemide 250 mg In 180 Sodium Chloride 0.9% 225 ml @ 20 MG/HR 20 mls/hr IVP .[id number] MIK Rx#: [id number] Intake, IV Titration 250 Amount Furosemide 250 mg In 250 Sodium Chloride 0.9% 225 ml @ 20 MG/HR 20 mls/hr IVP .[id number] MIK Rx#: [id number] Oral 600 240 Output: Urine 600 1150 350 Other: Voiding Method Bedside Commode Bedside Commode # Voids 2 1 # Bowel Movements 1 - Labs CBC & Chem 7: 03/08/16 06:11 03/09/16 06:52 Labs: Abnormal Lab Results - Last 24 Hours (Table) 01/03/08/16 03/08/16 Range/Units 11:44 16:30 21:41 PT (9.0-12.0) sec BUN (7-17) mg/dL Creatinine (0.52-1.04) mg/dL Glucose (74-99) mg/dL POC Glucose (mg/dL) 165 H 123 H 155 H (75-99) mg/dL 03/09/16 03/09/16 03/09/16 Range/Units 06:49 06:52 06:52 PT 36.1 H (9.0-12.0) sec BUN 42 H (7-17) mg/dL Creatinine 1.84 H (0.52-1.04) mg/dL Glucose 110 H (74-99) mg/dL POC Glucose (mg/dL) 101 H (75-99) mg/dL Assessment and Plan Plan: Assessment: #1. Nonoliguric acute kidney injury secondary to cardiorenal syndrome. Renal function mildly worse with creatinine at 1.8 today. Unclear as to what her baseline renal function is. No evidence of hydronephrosis noted on renal ultrasound. Urinalysis is benign. #2. Mild hyperkalemia. Sample was hemolyzed. Renal failure and metabolic acidosis were also contributing factors. Resolved. #3. Metabolic acidosis secondary to acute kidney injury. Resolved. #4. Morbid obesity. #5. Systolic CHF with ejection fraction of 35%. #6. Right lower extremity ulcer. #7. Anemia. Iron deficiency present. Plan: Continue Lasix drip to be run at 20 mL an hour for now. Also on thiazide diuretics. Status post 3 doses of IV iron and completed on March 04. Continue oral sodium bicarbonate supplementation. Repeat electrolytes in the morning. At the time of discharge, can transition to oral diuretics with Lasix 40 mg twice daily. She will need to get repeat blood work checked within 3-4 days of discharge and follow-up as an outpatient within the next 2 weeks. She is advised to follow a low-salt diet and to monitor her weights closely.
[2016-03-09] MEDS: ASPIRIN 81 MG CHEW PO SCH (09:25)
[2016-03-09] MEDS: FUROSEMIDE 250 MG in SODIUM CHLORIDE 0.9% 225 ML IVP SCH ×2 (09:25→11:21)
[2016-03-09] MEDS: CEPHALEXIN 500 MG CAP PO SCH (09:25)
[2016-03-09] MEDS: ALLOPURINOL 300 MG TAB PO SCH (09:25)
[2016-03-09] MEDS: CHOLECALCIFEROL 1,000 UNIT TAB PO SCH (09:26)
[2016-03-09] MEDS: SPIRONOLACTONE 25 MG TAB PO SCH (09:26)
[2016-03-09] MEDS: FERROUS SULFATE 325 MG TAB PO SCH (09:26)
[2016-03-09] MEDS: MAGNESIUM OXIDE 250 MG TAB PO SCH (09:26)
[2016-03-09] MEDS: HYDROCHLOROTHIAZIDE 25 MG TAB PO SCH (09:26)
--- NOTE | 2016-03-09 11:02 | PN ---
DATE OF SERVICE: 03/08/2016 PRESENTING COMPLAINT: Edema. INTERVAL HISTORY: This is a patient with CHF exacerbation, on Lasix drip along with Zaroxolyn. Patient is making good urine, but I do not see a good I&O's documentation. Spoke to the nurse, she will check on the same. Edema still remains present. Tolerating a diet. Review of systems done for constitutional, cardiovascular, GI, pulmonary; relevant findings as above. Current medications are reviewed that include IV Lasix drip, hydrochlorothiazide, Aldactone. On examination, temperature 96.6, pulse 96, respiration 18, blood pressure 105/67, pulse ox 96% on room air. Sitting up in a chair, comfortable. EYES: Pupils equal. Conjunctivae normal. NECK: JVD unable to assess. Mass not palpable. Respiratory effort normal. Decreased lungs, diminished breath sounds. CARDIOVASCULAR: Heart size irregular. Edema still present. ABDOMEN: Soft, nontender, liver and spleen not palpable. PSYCHIATRY: Alert and oriented x3. Mood and affect normal. INVESTIGATIONS: White count 3.1, hemoglobin 8.6, potassium 4.1, BUN 43, creatinine 1.7, INR 3.7 and Accu-Cheks are noted. ASSESSMENT: 1. Acute on chronic congestive heart failure exacerbation from systolic dysfunction; ejection fraction 45%, underlying hypertensive heart disease. 2. Hypertensive heart disease, moderate concentric left ventricular hypertrophy. 3. Moderate secondary pulmonary hypertension from congestive heart failure. 4. Secondary pulmonary hypertension from congestive heart failure. 5. Moderate pulmonary regurgitation, nonrheumatic. 6. Moderate to severe mitral regurgitation, nonrheumatic. 7. Persistent atrial fibrillation, rate-controlled. 8. Coumadin monitoring. 9. Moderate obesity, body mass index of 49.5. 10. Hyperlipidemia. 11. Essential hypertension. 12. Medical debility, uses a cart. 13. Right lower extremity deep venous ulcer. 14. Chronic kidney stage III from nephrosclerosis. PLAN: I spoke to the nurse, I&O's are not being correctly documented, patient is making good urine at the present time. Again, edema is still present. Will continue with the patient on Lasix drip, oral diuretics. Care was discussed with the patient and at the bedside.
[2016-03-09 12:05] LABS: Glucose,Whole Blood 130 mg/dL (75-99)
[2016-03-09 12:28] VITALS: BP 105/68; PULSE 82; RESP 16
--- NOTE | 2016-03-09 15:55 | P.PN ---
Subjective Principal diagnosis: congestive heart failure This is a 76-year-old female with history of hypertension, hyperlipidemia, diabetes, renal failure, morbid obesity, chronic persistent atrial fibrillation, bilateral lower extremity ulcers, anemia, prior metallic aortic valve replacement, which patient states was performed in 2011 at [facility]. Her head athletic trainer is Dr. Romero. Patient presented to the hospital with symptoms of increased swelling in her bilateral lower extremities with evidence of drainage from her legs, as well as ulcerations. She states that she has also been short of breath, positive PND and orthopnea. Patient has had recent admissions to [facility] and [facility] according to her, for the same reasons. Chest x-ray on admission here shows congestive cardiac failure. EKG atrial fibrillation with nonspecific ST-T wave changes. Objective - Vital Signs Vital signs: Vital Signs Temp 96.7 F L 03/09/16 08:45 Pulse 82 03/09/16 12:28 Resp 16 03/09/16 12:28 BP 105/68 03/09/16 12:28 Pulse Ox 93 L 03/09/16 12:28 Intake & Output 03/08/16 03/09/16 03/09/16 18:59 06:59 18:59 Intake Total 413 352 1759 Output Total 600 1150 1075 Balance 385 -585 555 Weight 134.5 kg Intake: IV 385 315 280 0.9 @ 15mls 165 135 120 Furosemide 250 mg In 220 Sodium Chloride 0.9% 225 ml @ 15 MG/HR 15 mls/hr IVP .[id number] MIK Rx#: [id number] Furosemide 250 mg In 180 160 Sodium Chloride 0.9% 225 ml @ 20 MG/HR 20 mls/hr IVP .[id number] MIK Rx#: [id number] Intake, IV Titration 250 250 Amount Furosemide 250 mg In 250 250 Sodium Chloride 0.9% 225 ml @ 20 MG/HR 20 mls/hr IVP .[id number] MIK Rx#: [id number] Oral 600 1100 Output: Urine 600 1150 1075 Other: Voiding Method Bedside Commode Bedside Commode # Voids 2 1 # Bowel Movements 1 - Exam PHYSICAL EXAMINATION: HEENT: Head is atraumatic, normocephalic. Pupils equal, round. Neck is supple. There is elevated jugular venous pressure. HEART EXAMINATION: Heart S1-S2 irregularly irregular systolic murmur is heard. CHEST EXAMINATION: His reveal diminished air entry to bilateral bases. ABDOMEN: Soft, nontender. Bowel sounds are heard. No organomegaly noted. EXTREMITIES: Doppler peripheral pulses with 2-3+ peripheral edema and no calf tenderness noted. Bilateral ulcerations, erythema noted. NEUROLOGIC patient is awake, alert and oriented -3. . - Labs CBC & Chem 7: 03/08/16 06:11 03/09/16 06:52 Labs: Abnormal Lab Results - Last 24 Hours (Table) 03/08/16 03/08/16 03/09/16 Range/Units 16:30 21:41 06:49 PT (9.0-12.0) sec BUN (7-17) mg/dL Creatinine (0.52-1.04) mg/dL Glucose (74-99) mg/dL POC Glucose (mg/dL) 123 H 155 H 101 H (75-99) mg/dL 03/09/16 03/09/16 03/09/16 Range/Units 06:52 06:52 11:54 PT 36.1 H (9.0-12.0) sec BUN 42 H (7-17) mg/dL Creatinine 1.84 H (0.52-1.04) mg/dL Glucose 110 H (74-99) mg/dL POC Glucose (mg/dL) 130 H (75-99) mg/dL Assessment and Plan Plan: Assessment and plan #1 congestive cardiac failure, systolic acute on chronic currently on a Lasix drip. Echocardiogram with Doppler study which was performed in October at [facility] revealed an ejection fraction of 35%, normally functioning bioprosthetic aortic valve and mild degree of mitral regurgitation. #2 history of metallic aortic valve replacement, on Coumadin, patient is not taking Coumadin for the past 7 days prior to admission. #3 chronic persistent atrial fibrillation #4 hypertension #5 diabetes #6 hyperlipidemia #7 bilateral leg and feet ulcerations #8 sleep apnea #9 obesity #10 non-Hodgkin's lymphoma #11 chronic anemia Plan Patient will be discharged home today. A follow-up appointment will be made in the office post discharge. DNP note has been reviewed, I agree with a documented findings and plan of care. Patient was seen and examined.
--- NOTE | 2016-03-10 10:32 | DS ---
DATE OF ADMISSION: 02/26/2016 DATE OF DISCHARGE: 03/09/2016 FINAL DIAGNOSES: 1. Acute on chronic congestive heart failure exacerbation from systolic dysfunction; ejection fraction 45%, from underlying hypertensive heart disease, probably an element of diastolic dysfunction, also diastolic dysfunction. 2. Hypertensive heart disease, moderate concentric left ventricular hypertrophy. 3. Moderate secondary pulmonary hypertension from congestive heart failure. 4. Secondary pulmonary hypertension from congestive heart failure. 5. Moderate pulmonary regurgitation, nonrheumatic. 6. Moderate to severe mitral regurgitation, nonrheumatic. 7. Persistent atrial fibrillation, rate controlled. 8. Coumadin monitoring for therapeutic level. 9. Morbid obesity, body mass index of 49.5. 10. Hyperlipidemia. 11. Essential hypertension. 12. Medical debility uses a cart. 13. Right lower extremity venous ulcers. 14. Chronic kidney disease, stage III, from nephrosclerosis. HOSPITAL COURSE: This patient presented with CHF exacerbation. The patient diuresed close to 15 to 18 L of fluid. Doing much better at the time of discharge. The patient's BUN and creatinine at the time of discharge was 42 and 1.84. CONSULTATION: Dr. Love from nephrology; Dr. Harris from cardiology. Care was discussed with the patient and family. Questions were answered. DISCHARGE MEDICATIONS: 1. Allopurinol 300 mg p.o. daily. 2. Lipitor 10 mg p.o. q.h.s. 3. Coreg 12.5 p.o. b.i.d. 4. Vitamin D3, 1000 units p.o. daily. 5. Iron 325 p.o. daily. 6. Fish oil 1000 mg capsule p.o. daily. 7. Coumadin 5 mg p.o. daily. 8. Aspirin 81 mg p.o. daily. 9. Lasix 40 mg p.o. b.i.d. 10. Magnesium oxide 250 mg p.o. daily. 11. Aldactone 25 mg p.o. b.i.d. Follow up with Cardiology in one week. Follow up with Dr. Castañeda in one week. Follow up with Dr. Love in one week. LABS: BMP in 3 days. ON EXAMINATION: LUNGS: Clear to auscultation. Some edema is present. Care was discussed with the patient and at bedside. Discharge planning more than 35 minutes.
== END 2016-03-09 16:29 | disposition home health service (06) | DRG 291 ==
LOC: EC 16:57 → 6SEL 19:02
PROVIDERS: ADMIT Hospitalist; ATTEND Hospitalist
DX: I13.0 Hypertensive heart and chronic kidney disease with heart failure and stage 1 through stage 4 chronic kidney disease, or unspecified chronic kidney disease (principal); I50.43 Acute on chronic combined systolic (congestive) and diastolic (congestive) heart failure; N17.9 Acute kidney failure, unspecified; E87.2 Acidosis; E11.52 Type 2 diabetes mellitus with diabetic peripheral angiopathy with gangrene; I48.1 Persistent atrial fibrillation; C85.90 Non-Hodgkin lymphoma, unspecified, unspecified site; L97.219 Non-pressure chronic ulcer of right calf with unspecified severity; Z68.42 Body mass index [BMI] 45.0-49.9, adult; L03.115 Cellulitis of right lower limb; L03.116 Cellulitis of left lower limb; E11.22 Type 2 diabetes mellitus with diabetic chronic kidney disease; E11.621 Type 2 diabetes mellitus with foot ulcer; E66.01 Morbid (severe) obesity due to excess calories; E11.622 Type 2 diabetes mellitus with other skin ulcer; L97.519 Non-pressure chronic ulcer of other part of right foot with unspecified severity; E87.5 Hyperkalemia; I27.2 Other secondary pulmonary hypertension; I34.0 Nonrheumatic mitral (valve) insufficiency; N18.3 Chronic kidney disease, stage 3 (moderate); I37.1 Nonrheumatic pulmonary valve insufficiency; D64.9 Anemia, unspecified; E78.5 Hyperlipidemia, unspecified; M19.90 Unspecified osteoarthritis, unspecified site; G47.30 Sleep apnea, unspecified; E61.1 Iron deficiency; Z95.1 Presence of aortocoronary bypass graft; Z95.2 Presence of prosthetic heart valve; Z79.01 Long term (current) use of anticoagulants; Z90.49 Acquired absence of other specified parts of digestive tract; Z87.891 Personal history of nicotine dependence; Z79.899 Other long term (current) drug therapy; Z82.49 Family history of ischemic heart disease and other diseases of the circulatory system
CPT/HCPCS: 36415; 71020; 76770; 80048; 80053; 80162; 81003; 82550; 82553; 82728; 83036; 83540; 83550; 83735; 83880; 84132; 84484; 85025; 85610; 85730; 86850; 86870; 86880; 86900; 86901; 86902; 86920; 93005; 93306; 94760; 96374; 99285

== ENCOUNTER 2016-04-29 15:34 | Inpatient (IN) | payer MEDICARE, BC ==
[2016-04-29] MEDS ORDERED: SODIUM CHLORIDE 0.9% 1,000 ML IV STA (16:19)
[2016-04-29] MEDS ORDERED: IPRATROPIUM-ALBUTEROL 3 ML NEB INHALATION STA (16:19)
[2016-04-29] MEDS ORDERED: LORazepam 2 MG/ML SYRINGE IV STA (16:19)
[2016-04-29] MEDS ORDERED: MORPHINE SULFATE 2 MG/ML SYRINGE IVP ONE (16:20)
[2016-04-29] MEDS ORDERED: DILTIAZEM 5 MG/ML 5 ML VIAL IVP STA (16:24)
--- NOTE | 2016-04-29 16:25 | ED ---
General Adult HPI - General Chief complaint: Shortness of Breath Stated complaint: KELSEA Time Seen by Provider: 04/29/16 16:04 Source: patient, EMS, RN notes reviewed, old records reviewed Mode of arrival: EMS Limitations: no limitations - History of Present Illness Initial comments: This is a 76-year-old female yesterday for evaluation of severe shortness of breath. Patient does suffer from significant congestive heart failure and has been exposed to a who has the flu. Patient is taking Tamiflu for peripheral flu prevention. Patient is a is having some chest pain left-sided chest pain which she does get with her CHF, she also is having significant shortness of breath. Patient stated last night she had a chest x-ray or family states patient last night had a chest x-ray which was normal. Patient also noted fever that started today which she did not have yesterday. She has no nausea vomiting or diarrhea. No recent travel history, patient is coming from home. Patient's poor historian secondary clinical state and inability to breathe, history is obtained from patient's daughter and patient's prior chart - Related Data Home Medications Medication Instructions Recorded Confirmed Allopurinol [Zyloprim] 300 mg PO DAILY 02/26/16 04/29/16 Atorvastatin [Lipitor] 10 mg PO HS 02/26/16 04/29/16 Carvedilol [Coreg] 12.5 mg PO BID 02/26/16 04/29/16 Cholecalciferol [Vitamin D3] 1,000 unit PO DAILY 02/26/16 04/29/16 Ferrous Sulfate [Iron (65 MG 325 mg PO DAILY 02/26/16 04/29/16 Elemental)] [place]-3 Fatty Acids/Fish Oil [Fish 1 cap PO DAILY 02/26/16 04/29/16 Oil 1,000 mg Softgel] Warfarin [Coumadin] 5 mg PO HS 02/26/16 04/29/16 Oseltamivir [Tamiflu] 75 mg PO BID 04/29/16 04/29/16 Previous Rx's Medication Instructions Recorded Aspirin 81 mg PO DAILY chew 03/09/16 Furosemide [Lasix] 40 mg PO BID #60 tablet 03/09/16 Magnesium Oxide [Mag-Ox] 250 mg PO DAILY #1 tab 03/09/16 Spironolactone [Aldactone] 25 mg PO BID #60 tab 03/09/16 Allergies Allergy/AdvReac Type Severity Reaction Status Date / Time Penicillins Allergy Anaphylaxis Verified 04/29/16 16:30 Quinolones AdvReac Nausea & Verified 04/29/16 16:30 Vomiting Review of Systems ROS Statement: Those systems with pertinent positive or pertinent negative responses have been documented in the HPI. ROS Other: All systems not noted in ROS Statement are negative. Past Medical History Past Medical History: Atrial Fibrillation, Heart Failure, Diabetes Mellitus, Hyperlipidemia, Hypertension, Osteoarthritis (OA), Pneumonia History of Any Multi-Drug Resistant Organisms: None Reported Past Surgical History: Cholecystectomy, Tonsillectomy Additional Past Surgical History / Comment(s): aortic valve replacement Past Psychological History: No Psychological Hx Reported Smoking Status: Former smoker Past Alcohol Use History: None Reported Past Drug Use History: None Reported - Past Family History Father Family Medical History: Myocardial Infarction ([place]) General Exam Limitations: no limitations General appearance: alert, in no apparent distress, anxious, in distress, obese Head exam: Present: atraumatic, normocephalic, normal inspection Eye exam: Present: normal appearance, PERRL, EOMI. Absent: scleral icterus, conjunctival injection, periorbital swelling ENT exam: Present: normal exam, mucous membranes moist Neck exam: Present: normal inspection. Absent: tenderness, meningismus, lymphadenopathy Respiratory exam: Present: respiratory distress, rales, accessory muscle use, decreased breath sounds, prolonged expiratory. Absent: wheezes, rhonchi, stridor Cardiovascular Exam: Present: normal rhythm, tachycardia, irregular rhythm, normal heart sounds. Absent: systolic murmur, diastolic murmur, rubs, gallop, clicks GI/Abdominal exam: Present: soft, normal bowel sounds. Absent: distended, tenderness, guarding, rebound, rigid Extremities exam: Present: normal inspection, full ROM, normal capillary refill. Absent: tenderness, pedal edema, joint swelling, calf tenderness Back exam: Present: normal inspection Neurological exam: Present: alert, oriented X3, CN II-XII intact Psychiatric exam: Present: normal affect, normal mood Skin exam: Present: warm, dry, intact, normal color. Absent: rash Course Vital Signs 04/29/16 04/29/16 04/29/16 15:46 16:00 16:15 Temperature 101.5 F H Pulse Rate 118 H 116 H 122 H Respiratory 30 H 28 H 32 H Rate Blood Pressure 168/109 158/90 158/72 O2 Sat by Pulse 90 L 96 94 L Oximetry 04/29/16 04/29/16 04/29/16 16:30 16:45 16:50 Temperature Pulse Rate 135 H 99 110 H Respiratory 32 H 30 H Rate Blood Pressure 153/74 137/78 O2 Sat by Pulse 95 100 Oximetry 04/29/16 04/29/16 04/29/16 17:00 17:03 17:11 Temperature Pulse Rate 92 113 H 99 Respiratory 28 H 33 H Rate Blood Pressure 117/72 117/72 O2 Sat by Pulse 95 94 L Oximetry 04/29/16 04/29/16 17:15 17:30 Temperature Pulse Rate 84 83 Respiratory 28 H 27 H Rate Blood Pressure 133/69 133/56 O2 Sat by Pulse 93 L 95 Oximetry - Reevaluation(s) Reevaluation #1: 04/29/16 16:23 At this point patient is having hypoxic respiratory failure and will be transitioned to BiPAP Reevaluation #2: 04/29/16 17:57 Patient heart rate improved with Cardizem, patient's symptoms improving with low -dose Ativan and morphine, Reevaluation #3: 04/29/16 17:57 Patient's fever is improved at this time with Tylenol, breathing continues to improve on BiPAP EKG Findings - EKG Comments: EKG Findings:: EKG shows A. fib with RVR rate 119, QRS is 106, QTc 503 Medical Decision Making - Medical Decision Making 76-year-old female to the ER today for reevaluation of significant shortness of breath positive fever contact with flu, patient's also found to be in A. fib with RVR, CHF shows acute pulmonary edema with CHF, patient placed immediately on BiPAP secondary to severe respiratory distress per paradoxical respirations outpatient he will be comfortable, heart rate maintained while on BiPAP, no need for anticoagulation as patient is therapeutic on Coumadin, patient will be admitted for monitoring of hemodynamic status, kept on BiPAP secondary to respiratory failure hypoxic, both cardiology evaluation - Lab Data Result diagrams: 04/29/16 16:13 04/29/16 16:13 Lab Results 04/29/16 04/29/16 04/29/16 Range/Units 16:13 16:13 16:13 WBC 6.3 (3.8-10.6) k/uL RBC 2.97 L (3.80-5.40) m/uL Hgb 9.7 L (11.4-16.0) gm/dL Hct 31.3 L (34.0-46.0) % MCV 105.5 H (80.0-100.0) fL MCH 32.8 (25.0-35.0) pg MCHC 31.1 (31.0-37.0) g/dL RDW 16.6 H (11.5-15.5) % Plt Count 148 L (150-450) k/uL Neutrophils % 88 % Lymphocytes % 4 % Monocytes % 5 % Eosinophils % 0 % Basophils % 0 % Neutrophils # 5.5 (1.3-7.7) k/uL Lymphocytes # 0.3 L (1.0-4.8) k/uL Monocytes # 0.3 (0-1.0) k/uL Eosinophils # 0.0 (0-0.7) k/uL Basophils # 0.0 (0-0.2) k/uL Hypochromasia Moderate Anisocytosis Slight Macrocytosis Moderate PT (9.0-12.0) sec INR (<1.1) APTT (22.0-30.0) sec Sodium 140 (137-145) mmol/L Potassium 5.0 (3.5-5.1) mmol/L Chloride 102 (98-107) mmol/L Carbon Dioxide 26 (22-30) mmol/L Anion Gap 12 mmol/L BUN 35 H (7-17) mg/dL Creatinine 1.90 H (0.52-1.04) mg/dL Est GFR (MDRD) Af Amer 31 (>60 ml/min/1.73 sqM) Est GFR (MDRD) Non-Af 26 (>60 ml/min/1.73 sqM) Glucose 116 H (74-99) mg/dL Plasma Lactic Acid Hank (0.7-2.0) mmol/L Calcium 9.6 (8.4-10.2) mg/dL Magnesium 1.8 (1.6-2.3) mg/dL Total Bilirubin 1.4 H (0.2-1.3) mg/dL AST 28 (14-36) U/L ALT 27 (9-52) U/L Alkaline Phosphatase 115 (38-126) U/L Total Creatine Kinase 73 (30-135) U/L CK-MB (CK-2) 1.4 (0.0-2.4) ng/mL CK-MB (CK-2) Rel Index 1.9 Troponin I 0.018 (0.000-0.034) ng/mL NT-Pro-B Natriuret Pep pg/mL Total Protein 7.8 (6.3-8.2) g/dL Albumin 4.0 (3.5-5.0) g/dL 04/29/16 04/29/16 04/29/16 Range/Units 16:13 16:13 16:13 WBC (3.8-10.6) k/uL RBC (3.80-5.40) m/uL Hgb (11.4-16.0) gm/dL Hct (34.0-46.0) % MCV (80.0-100.0) fL MCH (25.0-35.0) pg MCHC (31.0-37.0) g/dL RDW (11.5-15.5) % Plt Count (150-450) k/uL Neutrophils % % Lymphocytes % % Monocytes % % Eosinophils % % Basophils % % Neutrophils # (1.3-7.7) k/uL Lymphocytes # (1.0-4.8) k/uL Monocytes # (0-1.0) k/uL Eosinophils # (0-0.7) k/uL Basophils # (0-0.2) k/uL Hypochromasia Anisocytosis Macrocytosis PT 31.3 H (9.0-12.0) sec INR 3.2 (<1.1) APTT 48.6 H (22.0-30.0) sec Sodium (137-145) mmol/L Potassium (3.5-5.1) mmol/L Chloride (98-107) mmol/L Carbon Dioxide (22-30) mmol/L Anion Gap mmol/L BUN (7-17) mg/dL Creatinine (0.52-1.04) mg/dL Est GFR (MDRD) Af Amer (>60 ml/min/1.73 sqM) Est GFR (MDRD) Non-Af (>60 ml/min/1.73 sqM) Glucose (74-99) mg/dL Plasma Lactic Acid Hank 1.3 (0.7-2.0) mmol/L Calcium (8.4-10.2) mg/dL Magnesium (1.6-2.3) mg/dL Total Bilirubin (0.2-1.3) mg/dL AST (14-36) U/L ALT (9-52) U/L Alkaline Phosphatase (38-126) U/L Total Creatine Kinase (30-135) U/L CK-MB (CK-2) (0.0-2.4) ng/mL CK-MB (CK-2) Rel Index Troponin I (0.000-0.034) ng/mL NT-Pro-B Natriuret Pep 61823 pg/mL Total Protein (6.3-8.2) g/dL Albumin (3.5-5.0) g/dL Critical Care Time Critical Care Time: Yes Total Critical Care Time: 31 Disposition Clinical Impression: CHF exacerbation, Elevated serum creatinine, Acute pulmonary edema, Congestive heart failure, Acute respiratory failure, Hypoxia Disposition: ADMITTED IP TO THIS HOSP Condition: Fair Referrals: None,Stated [Primary Care Provider] - 1-2 days
[2016-04-29] MEDS ORDERED: diphenhydrAMINE 50 MG/ML 1 ML VIAL IVP STA (16:30)
[2016-04-29] MEDS ORDERED: ACETAMINOPHEN IV (For NPO) 1,000 MG in EMPTY BAG 1 BAG IVPB ONE (16:44)
[2016-04-29 16:51] LABS: Anisocytosis Slight; Basophils % (A) 0 %; CH 31.9; CHCM 30.4; Eosinophils % (A) 0 %; HCT 31.3 % (34.0-46.0); HDW 2.47; HGB 9.7 gm/dL (11.4-16.0); Hypochromasia Moderate; Luc # (Auto) 0.13; Luc % (Auto) 2; Lymphocytes # (A) 0.3 k/uL (1.0-4.8); Lymphocytes % (A) 4 %; MCH 32.8 pg (25.0-35.0); MCHC 31.1 g/dL (31.0-37.0); MCV 105.5 fL (80.0-100.0); Macrocytosis Moderate; Monocytes # (A) 0.3 k/uL (0-1.0); Monocytes % (A) 5 %; Neutrophils # (A) 5.5 k/uL (1.3-7.7); Neutrophils % (A) 88 %; RBC 2.97 m/uL (3.80-5.40); RDW 16.6 % (11.5-15.5); WBC 6.3 k/uL (3.8-10.6); WBC (Perox) 6.09
[2016-04-29 16:52] LABS: INR 3.2 (<1.1); Partial Thromboplastin Time 48.6 sec (22.0-30.0); Prothrombin Time 31.3 sec (9.0-12.0)
[2016-04-29 16:59] LABS: Calcium 9.6 mg/dL (8.4-10.2); Magnesium 1.8 mg/dL (1.6-2.3); Total Bilirubin 1.4 mg/dL (0.2-1.3); Total Protein 7.8 g/dL (6.3-8.2)
--- NOTE | 2016-04-29 17:03 | XR ---
EXAMINATION TYPE: XR chest 1V portable DATE OF EXAM: 04/29/2016 4:58 PM COMPARISON: Prior chest x-ray February 26, 2016. HISTORY: Difficulty in breathing and fever. TECHNIQUE: Single AP portable frontal upright view of the chest is obtained. FINDINGS: Sternal wires are redemonstrated. There is cardiomegaly redemonstrated. Moderate central va scular congestion with perihilar edema and/or infiltrates is present bilaterally. No large pleural ef fusion or pneumothorax is noted. Degenerative change in both shoulders the glenohumeral joint is agai n seen. IMPRESSION: CHF exacerbation as there is cardiomegaly with central vascular congestion and central alveolar edema felt present. Underlying infiltrates cannot be excluded.
[2016-04-29] MEDS ORDERED: ENALAPRILAT 1.25 MG/ML 1 ML VIAL IVP STA (17:07)
[2016-04-29 17:12] LABS: Creatine Kinase MB 1.4 ng/mL (0.0-2.4); Troponin I 0.018 ng/mL (0.000-0.034)
[2016-04-29] MEDS ORDERED: NITROGLYCERIN SL TABS 0.4 MG TAB SUBLINGUAL PRN (17:49)
[2016-04-29] MEDS ORDERED: IPRATROPIUM-ALBUTEROL 3 ML NEB INHALATION PRN (17:49)
[2016-04-29] MEDS ORDERED: ASPIRIN 81 MG CHEW PO STA (17:49)
[2016-04-29] MEDS ORDERED: PNEUMONIA PROTOCOL UTILIZED 1 EACH MISC PO PRN (17:49)
[2016-04-29] MEDS ORDERED: SODIUM CHLORIDE 0.9% 2,000 ML IV ONE (18:37)
[2016-04-29] MEDS ORDERED: NALOXONE 0.4 MG/ML 1 ML VIAL IV STA (18:37)
[2016-04-29] MEDS ORDERED: NALOXONE 0.4 MG/ML 10 ML VIAL IVP STA (18:44)
[2016-04-29] MEDS ORDERED: FUROSEMIDE 10 MG/ML 4 ML VIAL IV STA (22:35)
[2016-04-29] MEDS: HYDROmorphone 1 MG/ML 1 ML SYRINGE IVP PRN (22:43)
[2016-04-29] MEDS: SODIUM CHLORIDE 0.9% 1,000 ML IV SCH (22:47)
--- NOTE | 2016-04-29 22:59 | XR ---
EXAMINATION TYPE: XR chest 1V portable DATE OF EXAM: 04/29/2016 10:54 PM COMPARISON: Today HISTORY: Short of breath TECHNIQUE: Single frontal view of the chest is obtained. FINDINGS: Heart is enlarged. There is pulmonary edema. There are sternal wires. There are chest lead s. IMPRESSION: There is pulmonary edema probably due to congestive heart failure that is the same or sl ightly worse than exam earlier today at 5:00 PM. Left lower lobe pneumonia cannot be excluded.
[2016-04-29 23:48] LABS: Creatine Kinase MB 1.4 ng/mL (0.0-2.4); Troponin I 0.033 ng/mL (0.000-0.034)
[2016-04-30] MEDS: OSELTAMIVIR 75 MG CAP PO SCH ×2 (00:42→08:09)
[2016-04-30] MEDS: AZTREONAM 2 GM in SODIUM CHLORIDE 0.9% 100 ML IVPB SCH ×2 (00:56→09:23)
[2016-04-30] MEDS: PANTOPRAZOLE 40 MG/10 ML VIAL IVP SCH ×2 (00:56→08:09)
[2016-04-30] MEDS: methylPREDNISolone SOD SUCCI 125 MG/2 ML VIAL IV SCH ×5 (00:56→23:21)
[2016-04-30] MEDS: AZITHROMYCIN 500 MG in SODIUM CHLORIDE 0.9% 250 ML IVPB SCH ×2 (02:25→20:38)
[2016-04-30 04:14] LABS: Glucose,Whole Blood 75 mg/dL (75-99)
[2016-04-30] MEDS: NOREPINEPHRINE 4 MG in SODIUM CHLORIDE 0.9% 250 ML IV SCH (04:45)
[2016-04-30 05:08] LABS: Anisocytosis Slight; CH 31.6; CHCM 28.7; HCT 33.3 % (34.0-46.0); HDW 2.49; HGB 9.7 gm/dL (11.4-16.0); Hypochromasia Marked; Immature Gran Flag Marked; MCH 32.4 pg (25.0-35.0); MCHC 29.2 g/dL (31.0-37.0); Macrocytosis Marked; Mean Platelet Volume 7.8; RBC 3.01 m/uL (3.80-5.40); WBC 2.1 k/uL (3.8-10.6); WBC (Perox) 2.08
[2016-04-30 05:22] LABS: INR 3.9 (<1.1); MCV 110.7 fL (80.0-100.0); Prothrombin Time 38.3 sec (9.0-12.0)
[2016-04-30 05:48] LABS: Potassium 4.9 mmol/L (3.5-5.1)
[2016-04-30 06:00] LABS: Amorphous Sediment,Urine Rare /hpf; Appearance,Urine Cloudy (Clear); Bacteria,Urine Many /hpf; Bilirubin,Urine Negative (Negative); Glucose,Urine (UA) Negative (Negative); Ketones,Urine Negative (Negative); Leukocyte Esterase,Urine Negative (Negative); Mucus,Urine Rare /hpf; Nitrite,Urine Negative (Negative); Particle Count 12435; Protein,Urine 1+ (Negative); RBC,Urine 2 /hpf (0-5); Specific Gravity,Urine 1.014 (1.001-1.035); Squamous Epithelial Cell,Urine <1 /hpf (0-4); UA Billing (MACRO vs. MICRO) MICRO; WBC,Urine 1 /hpf (0-5)
[2016-04-30 06:17] LABS: Creatine Kinase MB 1.4 ng/mL (0.0-2.4); Troponin I 0.031 ng/mL (0.000-0.034)
[2016-04-30] MEDS ORDERED: FUROSEMIDE 10 MG/ML 4 ML VIAL IV SCH ×2 (07:00→09:00)
[2016-04-30 07:02] LABS: Add Differential Manual Differential
[2016-04-30 07:09] LABS: Band Neutrophils % 40.5 %; Nucleated Red Blood Cells 0 /100 WBC (0-0); Total Cells Counted 200
[2016-04-30 07:13] LABS: Manual Review Performed
[2016-04-30] MEDS ORDERED: CARVEDILOL 12.5 MG TAB PO SCH (07:30)
[2016-04-30] MEDS: FORMOTEROL FUMARATE 20 MCG/2 ML NEBU INHALATION SCH ×2 (07:34→19:32)
[2016-04-30] MEDS: IPRATROPIUM 0.5 MG/2.5 ML NEBU INHALATION SCH ×4 (07:34→19:32)
[2016-04-30] MEDS: BUDESONIDE 1 MG/2 ML NEBU INHALATION SCH ×2 (07:34→19:32)
[2016-04-30] MEDS: LEVALBUTEROL NEB (CONC) 1.25 MG/0.5 ML AMP INHALATION SCH ×4 (07:35→19:32)
[2016-04-30 07:46] LABS: Glucose,Whole Blood 82 mg/dL (75-99)
[2016-04-30] MEDS: CHOLECALCIFEROL 1,000 UNIT TAB PO SCH (08:08)
[2016-04-30] MEDS: ASPIRIN 325 MG TAB PO SCH (08:08)
[2016-04-30] MEDS: ALLOPURINOL 300 MG TAB PO SCH (08:08)
[2016-04-30] MEDS: INSULIN LISPRO (humaLOG) 300 UNIT/3 ML VIAL SQ SCH ×4 (08:08→20:38)
[2016-04-30] MEDS: MAGNESIUM OXIDE 400 MG TAB PO SCH (08:09)
[2016-04-30] MEDS ORDERED: SPIRONOLACTONE 25 MG TAB PO SCH (09:00)
[2016-04-30] MEDS ORDERED: NOREPINEPHRINE 4 MG-0.9% NS PMX 250 ML IV ONE (09:28)
[2016-04-30] MEDS ORDERED: IV VANCOMYCIN PER PHARMACY 1 EACH MISC MISCELLANE PRN (09:29)
[2016-04-30 10:02] LABS: ABG Base Excess -6.5 mmol/L; ABG HCO3 18 mmol/L (21-25); ABG PCO2 34 mmHg (35-45); ABG PH 7.34 (7.35-7.45); ABG PO2 149 mmHg (83-108); ABG TCO2 19 mmol/L (19-24)
--- NOTE | 2016-04-30 10:55 | HP ---
DATE OF ADMISSION: The chief complaint is shortness of breath. HISTORY OF PRESENT ILLNESS: This 76-year-old woman with a past medical history of multiple medical problems of atrial fibrillation, CHF with chronic systolic dysfunction, ejection fraction of 40%, history of diabetes mellitus type 2, hypertension, hyperlipidemia, history of DJD, history of pneumonia, history of morbid obesity being followed by Dr. [facility] in the office was not feeling well for the past several days. Patient had increase in paroxysmal shortness of breath and cough. Apparently, the his flu and was admitted at [facility]. Patient was exposed to flu from her . The patient took the vaccine this year but because of increase in shortness of breath and breathing difficulties, the patient came to [facility], admitted for further evaluation and treatment. The patient has started taken Tamiflu since last Wednesday. The chest x-ray showed evidence of fluid plus bilateral infiltrates and the patient has also had acute respiratory failure. Patient is with mask. At this time patient admitted for further evaluation and treatment. Patient has got residual fluid from the ER. PAST MEDICAL HISTORY: History of CHF with chronic systolic dysfunction, ejection fracture 40%, history of atrial fibrillation, history of diabetes mellitus type 2, hyperlipidemia, DJD, cholecystectomy, tonsillectomy. Medications prior to admission include: 1. Coumadin 5 mg p.o. q.h.s. 2. Aldactone 25 mg p.o. b.i.d. 3. Tamiflu 75 mg p.o. b.i.d. 4. Fish oil 1 capsule daily. 5. Magnesium oxide 250 mg daily. 6. Lasix 40 mg b.i.d. 7. Iron sulfate 325 mg p.o. daily. 8. Vitamin D3 one thousand mg. 9. Coreg 12.5 mg b.i.d. 10. Lipitor 10 mg. 11. Aspirin 81 mg. 12. Zyloprim 300 mg daily. Allergies are PENICILLIN, QUINOLONES. FAMILY HISTORY: History of myocardial infarction in the family. SOCIAL HISTORY: Previous history of smoking, no history of alcohol intake. REVIEW OF SYSTEMS: ENT: No diminished hearing. No diminished vision. CARDIOVASCULAR: As mentioned earlier. RESPIRATORY: As mentioned earlier. GI: No nausea. : No dysuria. NERVOUS SYSTEM: No numbness or weakness. ALLERGY/IMMUNOLOGY: No asthma or hayfever. MUSCULOSKELETAL: As mentioned earlier. HEMATOLOGY: No history of anemia. ENDOCRINE: As mentioned earlier. CONSTITUTIONAL: As mentioned earlier. DERMATOLOGY: As mentioned earlier. RHEUMATOLOGY: Negative. PSYCHIATRY: As mentioned earlier. PHYSICAL EXAMINATION: Patient is alert and oriented x3. Pulse is 93, blood pressure 109/85, respirations 20, temperature is 99 degrees, pulse ox 99% on BiPAP. HEENT: Conjunctivae normal, oral mucosa moist. NECK: No jugular venous distension, no carotid bruit, no lymph node enlargement. CARDIOVASCULAR SYSTEM: S1, S2, muffled, no S3, no S4. RESPIRATORY: Breath sounds diminished at the bases, bilateral scattered rhonchi, inspiratory wheezing and crackles. Abdomen is . Abdomen is soft, obese, nontender, no mass palpable. EXTREMITIES: Leg bilateral leg cellulitis, improving which is wrapped at this time. NERVOUS SYSTEM: Higher function as mentioned. Moves all 4 limbs. No focal motor sensory defects. LYMPHATICS: No lymph node enlargement in neck, axillae or groin. SKIN: As noted. DERMATOLOGY: As mentioned earlier. RHEUMATOLOGY: Negative. JOINTS: No active deformity. LABS: WBC is 6.3, hemoglobin 9.7, MCV 105.5, platelets 148. INR is 3.2, creatinine 1.90, influenza B is positive. ASSESSMENT: 1. Acute influenza B with possibly bilateral pneumonia with acute hypoxic respiratory failure on 100% partial non-rebreather mask. 2. Possible congestive heart failure acute exacerbation with acute on chronic systolic dysfunction, ejection fraction of 40% with possible hypertensive heart disease and cardiomyopathy. 3. Anemia, macrocytic. 4. Thrombocytopenia. 5. Coumadin coagulopathy. 6. Obesity with a body mass index of 48.5. 7. Bilateral leg cellulitis. 8. History of atrial fibrillation. 9. History of diabetes mellitus type 2. 10. Hypertension. 11. Hyperlipidemia. 12. History of degenerative joint disease. 13. History of pneumonia. 14. History of cholecystectomy. 15. History of aortic valve replacement. 16. Remote history of nicotine dependence. 17. FULL CODE. RECOMMENDATION: In this in this 76-year-old woman who presented with multiple complex medical issues, will monitor the patient closely. Continue with the current medication, continue with the symptomatic treatment. I would recommend broad-spectrum IV antibiotics. I would recommend diuretics. Consult Dr. Diaz and Cardiology. Guarded prognosis because of multiple complex medical issues. Further recommendations to follow. A copy of this will be forwarded to Dr. Box who is the primary physician for this physician's group. Discussed with family who understands. Further recommendations to follow. Apparently patient would like to be FULL CODE in the ER and the family is still talking to the patient at this time. Further recommendations to follow. All medications were reviewed. X-rays reviewed personally. MICHAEL
[2016-04-30] MEDS ORDERED: VANCOMYCIN 2,000 MG in SODIUM CHLORIDE 0.9% 500 ML IVPB ONE (11:00)
[2016-04-30] MEDS: DOBUTamine DRIP 500 MG in DEXTROSE/WATER 1 250ML.BAG IV SCH (11:30)
[2016-04-30 12:14] LABS: Glucose,Whole Blood 80 mg/dL (75-99)
[2016-04-30] MEDS: FUROSEMIDE 250 MG in SODIUM CHLORIDE 0.9% 225 ML IVP SCH (12:22)
--- NOTE | 2016-04-30 12:23 | P.CNPUL ---
History of Present Illness Consult date: 04/30/16 Requesting physician: Em Pressley Reason for consult: dyspnea Chief complaint: shortness of breath History of present illness: this is a 76-year-old female with history of multiple medical problems including severe LV dysfunction, chronic congestive heart failure, chronic atrial fibrillation, type 2 diabetes, morbid obesity, patient presented to the ER yesterday with mostly symptoms of increased shortness of breath and cough. Patient was recently exposed to her who is presently hospitalized at [facility] with acute influenza infection. Upon evaluation in the ER, chest x-ray showed evidence of pulmonary edema, possibility of left lower lobe consolidation is not entirely ruled out, patient tested positive for influenza, patient was given fluid boluses in the ER because of hypotension she received about 2 L. Patient went on to develop worsening pulmonary edema she was placed on BiPAP, high FiO2 at 50%, and she was admitted to the intensive care unit. I evaluated the patient, she is presently on 30 g of norepinephrine, Iadded dobutamine, and I started the patient on a Lasix drip since her chest x-ray continues to show significant pulmonary edema, the left lower lobe showed consolidation, possibility of pneumonia in the left lower lobe is not entirely ruled out this could be a complication related to her acute influenza infection. I am not certain whether this is a picture of cardiogenic shock with hypotension, or this is a septic shock at this point. Patient will be treated for both empirically, hence she was given pressors, and antibiotics including aztreonam, Zithromax, and vancomycin. Patient was also placed on Tamiflu. Considering her overall poor clinical picture, I had the liberty of discussing the CODE STATUS with her and with her daughter, patient would like to be DO NOT RESUSCITATE CODE STATUS. A right radial arterial line was placed, and I was about to place a right IJ central line, however patient has been on Coumadin and her INR is relatively elevated hence I will hold on placement of a triple-lumen catheter at this point. Review of Systems ROS unobtainable: due to mental status Past Medical History Past Medical History: Atrial Fibrillation, Heart Failure, Diabetes Mellitus, Hyperlipidemia, Hypertension, Osteoarthritis (OA), Pneumonia History of Any Multi-Drug Resistant Organisms: None Reported Past Surgical History: Cholecystectomy, Tonsillectomy Additional Past Surgical History / Comment(s): aortic valve replacement Past Anesthesia/Blood Transfusion Reactions: No Reported Reaction Past Psychological History: No Psychological Hx Reported Smoking Status: Former smoker Past Alcohol Use History: None Reported Past Drug Use History: None Reported - Past Family History Father Family Medical History: Myocardial Infarction ([place]) Medications and Allergies Home Medications Medication Instructions Recorded Confirmed Type Allopurinol [Zyloprim] 300 mg PO DAILY 02/26/16 04/29/16 History Atorvastatin [Lipitor] 10 mg PO HS 02/26/16 04/29/16 History Carvedilol [Coreg] 12.5 mg PO BID 02/26/16 04/29/16 History Cholecalciferol [Vitamin D3] 1,000 unit PO DAILY 02/26/16 04/29/16 History Ferrous Sulfate [Iron (65 MG 325 mg PO DAILY 02/26/16 04/29/16 History Elemental)] [place]-3 Fatty Acids/Fish Oil [Fish 1 cap PO DAILY 02/26/16 04/29/16 History Oil 1,000 mg Softgel] Warfarin [Coumadin] 5 mg PO HS 02/26/16 04/29/16 History Oseltamivir [Tamiflu] 75 mg PO BID 04/29/16 04/29/16 History Allergies Allergy/AdvReac Type Severity Reaction Status Date / Time Penicillins Allergy Anaphylaxis Verified 04/29/16 16:30 Quinolones AdvReac Nausea & Verified 04/29/16 16:30 Vomiting Physical Exam Vitals: Vital Signs Temp Pulse Pulse Pulse Resp BP BP 04/30/16 12:00 88 97 26 H 04/30/16 11:29 85 04/30/16 11:18 82 04/30/16 11:00 85 26 H 89/59 04/30/16 10:45 82 24 98/51 04/30/16 10:30 85 24 100/62 04/30/16 10:15 90 30 H 96/64 04/30/16 10:00 85 23 102/65 04/30/16 09:45 81 23 109/62 04/30/16 09:30 89 21 103/62 04/30/16 09:15 86 30 H 73/54 04/30/16 09:00 99.1 F 96 23 111/80 04/30/16 08:45 90 33 H 105/61 04/30/16 08:30 88 17 99/61 04/30/16 08:15 87 19 04/30/16 08:04 89 03/23/17 08:00 86 88 97 25 H 99/56 04/30/16 07:52 88 04/30/16 07:45 81 21 94/57 04/30/16 07:37 90 04/30/16 07:30 82 20 85/63 04/30/16 07:15 90 22 84/57 04/30/16 07:00 89 22 83/58 04/30/16 06:45 87 19 93/64 04/30/16 06:30 83 19 85/56 04/30/16 06:15 83 22 86/55 04/30/16 06:00 85 23 76/53 04/30/16 05:45 88 26 H 73/44 04/30/16 05:30 82 28 H 72/46 04/30/16 05:15 84 85/53 04/30/16 05:00 84 26 H 80/42 04/30/16 04:45 92 26 H 81/48 04/30/16 04:30 100.2 F H 88 28 H 78/50 04/30/16 03:49 98.3 F 97 25 H 04/30/16 03:30 97/60 04/30/16 03:15 74/48 04/30/16 03:00 81/47 04/30/16 02:45 92/54 04/30/16 02:30 81/50 04/30/16 00:18 98 F 88 26 H 100/54 04/29/16 21:20 99.0 F 93 24 109/85 04/29/16 21:00 99.0 F 84 26 H 118/55 04/29/16 20:30 82 26 H 115/53 04/29/16 20:00 82 24 115/53 04/29/16 19:30 82 24 92/52 04/29/16 19:15 80 22 99/56 04/29/16 19:12 97.6 F 99 24 115/71 04/29/16 19:00 99.3 F 76 22 121/57 04/29/16 18:45 74 24 85/49 04/29/16 18:30 76 24 76/48 04/29/16 18:15 95 24 89/54 04/29/16 18:00 84 26 H 94/52 Pulse Ox 04/30/16 12:00 04/30/16 11:29 04/30/16 11:18 04/30/16 11:00 100 04/30/16 10:45 100 04/30/16 10:30 100 04/30/16 10:15 100 04/30/16 10:00 100 04/30/16 09:45 100 04/30/16 09:30 100 04/30/16 09:15 96 04/30/16 09:00 100 04/30/16 08:45 100 04/30/16 08:30 100 04/30/16 08:15 100 04/30/16 08:04 04/30/16 08:00 100 04/30/16 07:52 04/30/16 07:45 100 04/30/16 07:37 04/30/16 07:30 100 04/30/16 07:15 100 04/30/16 07:00 100 04/30/16 06:45 99 04/30/16 06:30 99 04/30/16 06:15 96 04/30/16 06:00 98 04/30/16 05:45 99 04/30/16 05:30 100 04/30/16 05:15 99 04/30/16 05:00 100 04/30/16 04:45 100 04/30/16 04:30 100 04/30/16 03:49 100 04/30/16 03:30 04/30/16 03:15 04/30/16 03:00 04/30/16 02:45 04/30/16 02:30 04/30/16 00:18 100 04/29/16 21:20 99 04/29/16 21:00 99 04/29/16 20:30 99 04/29/16 20:00 99 04/29/16 19:30 99 04/29/16 19:15 100 04/29/16 19:12 100 04/29/16 19:00 100 04/29/16 18:45 99 04/29/16 18:30 99 04/29/16 18:15 99 04/29/16 18:00 99 Intake and Output 04/29/16 04/30/16 04/30/16 22:59 06:59 14:59 Intake Total 164.731 350 Output Total 75 110 Balance 89.731 240 Intake: IV 20 100 Sodium Chloride 0.9% 1, 20 100 000 ml @ 20 mls/hr IV . Q24H MIK Rx#:[id number] Intake, IV Titration 144.731 250 Amount Azithromycin 500 mg In 250 Sodium Chloride 0.9% 250 ml @ 125 mls/hr IVPB HS MIK Rx#:[id number] Norepinephrine 4 mg In 144.731 Sodium Chloride 0.9% 250 ml @ Titrate IV .Q0M MIK Rx#:[id number] Output: Urine 75 110 Other: Voiding Method Diaper Indwelling Catheter Incontinent # Bowel Movements 0 Weight 136.078 kg 136.078 kg Patient Weight 05/01/16 06:59 Weight 136.078 kg ABP, PAP, CO, CI - Last 8 Hours Arterial Blood Pressure 100/54 Arterial Blood Pressure 106/57 Arterial Blood Pressure 109/57 Arterial Blood Pressure 105/50 Arterial Blood Pressure 109/55 Physical Exam: Revealed a 76-year-old, morbidly obese, on BiPAP, in mild to moderate respiratory distress. HEENT:short obese neck is noted, narrow oropharynx.[Neck is supple.] [No neck masses.] [No thyromegaly.] [No JVD.] Chest: [diffuse rhonchi and crackles noted bilaterally. No wheezing.] Cardiac Exam: normal S1 and S2, positive S3 gallop, irregular rhythm, 2/6 systolic murmur throughout the precordium evidence of previous cardiac surgery noted. Abdomen: [morbidly obese,Soft, nontender, no megaly, no rebound, no guarding, normal bowel sounds.] Extremities: [No clubbing, 3+ bipedal edema, no cyanosis.] Neurological Exam: patient is lethargic, however she is arousable, and follows simple instructions. And she tends to fall asleep very easily. Results - Laboratory Findings CBC and BMP: 04/30/16 04:55 04/30/16 04:55 ABG ABG pH 7.34 (7.35-7.45) L 04/30/16 09:54 ABG pCO2 34 mmHg (35-45) L 04/30/16 09:54 ABG pO2 149 mmHg (83-108) H 04/30/16 09:54 ABG O2 Saturation 99.0 % (94-97) H 04/30/16 09:54 PT/INR, D-dimer PT 38.3 sec (9.0-12.0) H 04/30/16 04:55 INR 3.9 (<1.1) 04/30/16 04:55 Abnormal lab findings: Abnormal Labs 04/30/16 04/30/16 04/30/16 04:55 04:55 04:55 WBC 2.1 L RBC 3.01 L Hgb 9.7 L Hct 33.3 L MCV 110.7 H D MCHC 29.2 L RDW 17.0 H Plt Count 89 L Lymphocytes # (Manual) 0.2 L PT 38.3 H ABG pH ABG pCO2 ABG pO2 ABG HCO3 ABG O2 Saturation Carbon Dioxide 19 L BUN 40 H Creatinine 2.00 H HDL Cholesterol 37 L Urine Appearance Urine Protein Amorphous Sediment Urine Bacteria Hyaline Casts Urine Mucus 04/30/16 04/30/16 05:25 09:54 WBC RBC Hgb Hct MCV MCHC RDW Plt Count Lymphocytes # (Manual) PT ABG pH 7.34 L ABG pCO2 34 L ABG pO2 149 H ABG HCO3 18 L ABG O2 Saturation 99.0 H Carbon Dioxide BUN Creatinine HDL Cholesterol Urine Appearance Cloudy H Urine Protein 1+ H Amorphous Sediment Rare H Urine Bacteria Many H Hyaline Casts 3 H Urine Mucus Rare H - Diagnostic Findings Chest x-ray: image reviewed (as noted above chest x-ray is suggestive of congestive heart failure, and possible left lower lobe atelectasis or consolidation noted.) Assessment and Plan Plan: impression: 1 acute hypoxic respiratory failure, mostly secondary to acute pulmonary edema, congestive heart failure, systolic dysfunction. 2 acute influenza B infection, possibly complicated by left lower lobe pneumonia and sepsis. This could very well be a picture of septic shock however I feel it is mostly more of a presentation of cardiogenic shock, or possibly both septic and cardiogenic shock at the same time. 3 multiple comorbidities including chronic atrial fibrillation, diabetes type 2 , hypertension, morbid obesity, history of aortic valve replacement, history of hyperlipidemia, history of degenerative joint disease, history of chronic cellulitis of both lower extremities, and history of chronic anemia. Recommendation: Patient will remain on BiPAP, remain on norepinephrine and on Dobutrex, the norepinephrine will be titrated if blood pressure improves with adding Dobutrex. Lasix drip 10 mg per hour was added antibiotics were also placed on board empirically since the chest x-ray is concerning for possible left lower lobe pneumonia and also the possibility of sepsis is not entirely ruled out. Right radial arterial line was placed. Patient will be placed on GI and DVT prophylaxis, CODE STATUS was discussed and patient is presently DO NOT RESUSCITATE, discussed her condition with her daughter at bedside, and prognosis is definitely poor and guarded at this point. We'll continue to follow and monitor closely in the intensive care unit for now. Time with Patient: Greater than 30
--- NOTE | 2016-04-30 13:19 | ECHOF ---
Referral Reason:chf MEASUREMENTS -------- HEIGHT: 167.6 cm WEIGHT: 136.1 kg BP: 99/61 RVIDd: 5.0 cm (< 3.3) IVSd: 0.9 cm (0.6 - 1.1) LVIDd: 5.3 cm (3.9 - 5.3) LVPWd: 0.9 cm (0.6 - 1.1) IVSs: 1.2 cm LVIDs: 3.7 cm LVPWs: 1.4 cm Ao Diam: 2.9 cm (2.0 - 3.7) AV Cusp: 1.2 cm (1.5 - 2.6) LA Diam: 5.8 cm (2.7 - 3.8) MV EXCURSION: 15.618 mm (> 18.000) MV EF SLOPE: 91 mm/s (70 - 150) EPSS: 0.8 cm MV E Chet: 1.01 m/s MV DecT: 205 ms MV A Chet: 0.29 m/s MV E/A Ratio: 3.43 AV maxP.42 mmHg AV meanP.95 mmHg RAP: 5.00 mmHg RVSP: 38.21 mmHg FINDINGS -------- Atrial fibrillation. This was a technically difficult study with suboptimal views. The left ventricular size is normal. Left ventricular wall thickness is normal. There is moderate global hypokinesis of LV . Overall left ventricular systolic function is mild-moderately impaired with, an EF between 40 - 45 %. There is paradoxical/dysynergic septal motion consistent with right ventricular volume overload and/or elevated right ventricular end-diastolic pressure. The right ventricle is severely enlarged. The left atrium is markedly dilated. The right atrium was not well visualized. There is mild aortic valve sclerosis. There is mild aortic stenosis present. Peak/mean gradient across the Aortic Valve is 15.42mmHg / 9.95mmHg. Moderate mitral annular calcification present. Severe mitral regurgitation is present , predominately a posteriorly directed jet. Mild tricuspid regurgitation present. There is mild pulmonary hypertension. The right ventricular systolic pressure, as measured by Doppler, is 38.21mmHg. The pulmonic valve was not well visualized. The aortic root size is normal. There is no pericardial effusion. CONCLUSIONS -------- 1. Atrial fibrillation. 2. There is mild aortic stenosis present. 3. Peak/mean gradient across the Aortic Valve is 15.42mmHg / 9.95mmHg. 4. Severe mitral regurgitation is present. 5. , predominately a posteriorly directed jet. 6. Mild tricuspid regurgitation present. 7. There is mild pulmonary hypertension. 8. The right ventricular systolic pressure, as measured by Doppler, is 38.21mmHg. 9. The pulmonic valve was not well visualized. 10. The aortic root size is normal. 11. There is no pericardial effusion. 12. This was a technically difficult study with suboptimal views. 13. Left ventricular wall thickness is normal. 14. There is moderate global hypokinesis of LV . 15. There is paradoxical/dysynergic septal motion consistent with right ventricular volume overload and/or elevated right ventricular end-diastolic pressure. 16. The right ventricle is severely enlarged. 17. The left atrium is markedly dilated. 18. The right atrium was not well visualized. 19. There is mild aortic valve sclerosis. FORESTRY BIOLOGY SPECIALIST: Ana Maria Duarte RDCS
[2016-04-30 13:31] LABS: Hemoglobin A1C 5.8 % (4.2-6.1)
[2016-04-30] MEDS: AZTREONAM 1 GM in SODIUM CHLORIDE 0.9% 50 ML IVPB SCH ×2 (15:11→23:22)
--- NOTE | 2016-04-30 16:09 | CONS ---
DATE OF CONSULTATION: Alicja Naranjo is a 76-year-old female. Patient is admitted to the hospital with increasing shortness of breath. Most of the information obtained from the family members and chart itself because patient admitted to the hospital with respiratory failure secondary to influenza infection with left ventricular failure, known patient of chronic atrial fibrillation, diabetes, morbid exogenous obesity with a BMI of 48 who went to the ER with increasing shortness of breath. Patient is on oxygen. Patient is unable to respond to any questions. Patient's chest x-ray is consistent with pulmonary edema and also history of pneumonia, which may be acute process. Patient has been on 30 mcg of ( ) and now down to 15 mcg as well as dobutamine at 5 mcg with improvement in the urine output. Patient has been placed on Tamiflu by the special duty nurse along with antibiotics. Pulmonology discussed with the patient who apparently opted for DO NOT RESUSCITATE status. Patient's review of systems cannot be obtained because of the mental status. Chronic atrial fibrillation, heart failure, diabetes, hyperlipidemia, mitral regurgitation and osteoarthritis, morbid exogenous obesity. Past history of cholecystectomy, tonsillectomy, history of aortic valve replacement. A look at the echocardiographic findings apparently noted to have severe mitral regurgitation. I have not seen the report yet of the chest. Patient is a former smoker. Patient's medications prior to admission include allopurinol 300 mg p.o. daily, atorvastatin 10 mg, carvedilol 12.5 mg p.o. b.i.d., ( ) 1000 units daily, ferrous sulfate 325 mg, [place]-3 fatty acids 1 capsule daily, 1000 mg daily, Warfarin 5 mg p.o. daily; Tamiflu 750 mg p.o. b.i.d. PATIENT IS ALLERGIC TO PENICILLIN AND QUINOLONES. Physical examination revealed patient is on BiPAP with pulse rate of 85 beats per minute, irregularly irregular, blood pressure of 130/71 and 118/71 mmHg, respirations on ventilator with BiPAP dependent is 20 to 24 beats per minute. NECK: Neck is supple. JVD is elevated to 10 cm above the clavicle. CARDIAC EXAMINATION: Irregular rate and rhythm. S1 and S2 with ejection systolic murmur grade 3/6 well heard in the mitral area. ABDOMEN: Obese. No organomegaly. LUNGS: Rales over the lung fuller. EXTREMITIES: 3+ pedal edema. [employer] MANAGER EXAMINATION: Not arousable. Patient has in the labs an improvement with a creatinine of 2.0, BUN of 40, potassium 4.9. ASSESSMENT: 1. Acute pulmonary edema complicated by influenza, admitted with pneumonia with chronic systolic dysfunction, acute on chronic heart failure. 2. Status post aortic valve replacement history. 3. Acute influenza B infection with lower lobe pneumonia and sepsis. 4. Morbid exogenous obesity. 5. Atrial fibrillation with controlled ventricular rate. 6. Diabetes mellitus. 7. Hypertension. 8. Hyperlipidemia. RECOMMENDATIONS: Continue on current therapy and risk factor modification. Concur with current therapy. Patient's prognosis is guarded in spite of therapy. Will follow with interest.
[2016-04-30] MEDS ORDERED: WARFARIN 5 MG TAB PO SCH (18:00)
[2016-04-30 18:39] LABS: Glucose,Whole Blood 71 mg/dL (75-99)
--- NOTE | 2016-04-30 19:21 | PN ---
DATE OF SERVICE: 04/30/2016 This 76-year-old woman with a past medical history of multiple medical problems, admitted with CHF, acute exacerbation, also had acute influenza B with possible bilateral pneumonia. The patient also had change in mental status, metabolic encephalopathy secondary to intravenous pain medication. Patient is being closely monitored in ICU. Patient was on BiPAP last night. Dr. Diaz is following the patient. After diuresis are feeling slightly better. Patient is being closely monitored. Patient also had hypotension and the patient is being pressor-supported also. A 2-D echo with Doppler was done by Cardiology which showed severe mitral regurgitation as well as moderate global hypokinesia. Paradoxical movement was also noted with possible right ventricular overload. Past medical history reviewed. REVIEW OF SYSTEMS: CARDIOVASCULAR SYSTEM: No angina, palpitations. RESPIRATORY SYSTEM: As mentioned earlier. GI: As mentioned earlier. : No dysuria, retention. NERVOUS SYSTEM: No numbness or weakness. Current medications are reviewed and include: 1. Zyloprim 300 mg daily. 2. Aspirin 325 mg daily. 3. Lipitor 10 mg at bedtime. 4. Zithromax 500 mg daily. 5. Aztreonam 1 gram q.8. 6. Pulmicort 1 b.i.d. 7. Vitamin D3. 8. Dobutamine. 9. Perforomist 20 b.i.d. 10. Lasix 250 mg drip. 11. Dilaudid 0.5 q.4 p.r.n. 12. Xopenex. 13. Magnesium oxide. 14. Solu-Medrol 60 IV q.6. 15. Vancomycin IV. 16. Levophed drip. 17. Tamiflu. 18. Protonix. PHYSICAL EXAMINATION: Patient is stuporous. Pulse 92, blood pressure 112/54, respiration 18, temperature normal, pulse ox 99% on 40% BiPAP. Settings are noted. HEENT: Conjunctivae normal. Oral mucosa moist. NECK: Obese. no carotid bruit. No lymph node enlargement. CARDIOVASCULAR SYSTEM: S1, S2 muffled. No S3. No S4. RESPIRATORY SYSTEM: Breath sounds diminished at the bases. Bilateral scattered rhonchi and crackles. ABDOMEN: Soft, obese, nontender. No mass palpable. LEGS: No edema. No swelling. NERVOUS SYSTEM: Diffusely weak. LABS: WBC 2.1, hemoglobin 9.7, MCV 110.7. Creatinine is 2. UA is cloudy. ASSESSMENT: 1. Acute influenza B with possible bilateral pneumonia with acute hypoxic respiratory failure, on 100% partial non-breather mask, with severe sepsis and septic shock and hypotension. 2. Congestive heart failure acute exacerbation, acute on chronic systolic dysfunction, ejection fraction of 40% with possible hypertensive heart disease and cardiomyopathy. 3. Anemia, normocytic. 4. Thrombocytopenia. 5. Coumadin coagulopathy. 6. Obesity with body mass index of 48.5. 7. Bilateral leg cellulitis. 8. History of atrial fibrillation. 9. History of diabetes mellitus, type 2. 10. Hypertension. 11. Hyperlipidemia. 12. History of degenerative joint disease. 13. History of pneumonia. 14. History of cholecystectomy. 15. History aortic valve replacement. 16. Remote history of nicotine dependence. 17. Increased creatinine with chronic renal failure, stage III. PLAN: Continue to monitor. Guarded prognosis. Continue with antibiotics and antivirals, steroids. Monitor closely. Pressor support. Closely follow with Dr. Diaz. Guarded prognosis because of multiple complex medical issues. Further recommendations to follow. MTDD
[2016-04-30] MEDS: SODIUM CHLORIDE 0.9% 1,000 ML IV SCH (19:50)
[2016-04-30] MEDS: ATORVASTATIN 10 MG TAB PO SCH (19:51)
[2016-04-30 20:49] LABS: Glucose,Whole Blood 91 mg/dL (75-99)
[2016-05-01] MEDS: HYDROmorphone 1 MG/ML 1 ML SYRINGE IVP PRN ×2 (01:08→21:19)
[2016-05-01] MEDS: NOREPINEPHRINE 4 MG in SODIUM CHLORIDE 0.9% 250 ML IV SCH (03:07)
[2016-05-01] MEDS ORDERED: TERBUTALINE FOR EXTRAVASATION 1 MG/ML VIAL SQ STA (04:12)
[2016-05-01 04:57] LABS: Anisocytosis Slight; CH 31.5; CHCM 29.5; HDW 2.61; HGB 10.3 gm/dL (11.4-16.0); Hypochromasia Marked; Immature Gran Flag Marked; MCH 32.6 pg (25.0-35.0); MCHC 30.4 g/dL (31.0-37.0); MCV 107.2 fL (80.0-100.0); Macrocytosis Marked; Mean Platelet Volume 8.2; RBC 3.17 m/uL (3.80-5.40); RDW 16.7 % (11.5-15.5); WBC 7.2 k/uL (3.8-10.6); WBC (Perox) 7.51
[2016-05-01] MEDS: methylPREDNISolone SOD SUCCI 125 MG/2 ML VIAL IV SCH ×3 (05:07→16:57)
[2016-05-01 05:18] LABS: Prothrombin Time 77.5 sec (9.0-12.0)
[2016-05-01 05:23] LABS: Calcium 8.5 mg/dL (8.4-10.2); Magnesium 1.7 mg/dL (1.6-2.3); Phosphorous 4.1 mg/dL (2.5-4.5); Potassium 4.7 mmol/L (3.5-5.1)
[2016-05-01 05:47] LABS: INR 7.5 (<1.1)
[2016-05-01 06:25] LABS: Add Differential Manual Differential
[2016-05-01 06:31] LABS: Metamyelocytes % 3.5 %; Nucleated Red Blood Cells 0 /100 WBC (0-0); Polychromasia Present; Total Cells Counted 200
[2016-05-01] MEDS ORDERED: VANCOMYCIN TROUGH DUE 1 EACH MISC MISCELLANE ONE (07:00)
[2016-05-01] MEDS ORDERED: NOREPINEPHRINE 4 MG-0.9% NS PMX 250 ML IV ONE (07:19)
[2016-05-01] MEDS: IPRATROPIUM 0.5 MG/2.5 ML NEBU INHALATION SCH ×4 (07:22→19:12)
[2016-05-01] MEDS: FORMOTEROL FUMARATE 20 MCG/2 ML NEBU INHALATION SCH ×2 (07:22→19:12)
[2016-05-01] MEDS: LEVALBUTEROL NEB (CONC) 1.25 MG/0.5 ML AMP INHALATION SCH ×4 (07:22→19:12)
[2016-05-01] MEDS: BUDESONIDE 1 MG/2 ML NEBU INHALATION SCH ×2 (07:22→19:12)
[2016-05-01 07:27] LABS: INR 7.4 (<1.1)
[2016-05-01 07:34] LABS: Glucose,Whole Blood 79 mg/dL (75-99)
--- NOTE | 2016-05-01 07:34 | PCN ---
DATE OF PROCEDURE: PROCEDURE: Placement of right radial arterial line. PREOPERATIVE DIAGNOSES: 1. Hypotension. 2. Sepsis. POSTOPERATIVE DIAGNOSES: 1. Hypotension. 2. Sepsis. ANESTHESIA USED: None deployed. PROCEDURE: The right wrist was prepared in a sterile fashion and drapes were applied. The right radial artery was palpated, cannulated, and a guidewire was placed. A Cook's catheter was inserted over the guidewire, and the guidewire was removed. Line was secured using 3-0 silk sutures. The procedure was tolerated and no evidence of any immediate complications.
[2016-05-01 07:49] LABS: Total Bilirubin 1.2 mg/dL (0.2-1.3); Total Protein 6.4 g/dL (6.3-8.2)
[2016-05-01] MEDS: PANTOPRAZOLE 40 MG/10 ML VIAL IVP SCH (08:32)
[2016-05-01] MEDS: INSULIN LISPRO (humaLOG) 300 UNIT/3 ML VIAL SQ SCH ×4 (08:32→21:18)
[2016-05-01] MEDS ORDERED: PHYTONADIONE 10 MG/ML 1 ML AMP MISCELLANE ONE (08:45)
[2016-05-01] MEDS: AZTREONAM 1 GM in SODIUM CHLORIDE 0.9% 50 ML IVPB SCH ×2 (09:28→16:28)
--- NOTE | 2016-05-01 09:49 | XR ---
EXAMINATION TYPE: XR chest 1V portable DATE OF EXAM: 05/01/2016 9:31 AM CLINICAL HISTORY: Difficulty breathing progress study. TECHNIQUE: Single AP portable upright view of the chest is obtained. COMPARISON: Chest x-ray from 2 days earlier and older chest x-ray February 26, 2016 FINDINGS: Sternal wires are redemonstrated. There is stable cardiomegaly with central vascular conge stion. There is worsening masslike left basilar opacity new from February 2016. No large pleural effus ion or pneumothorax is present bilaterally. Degenerative change right glenohumeral joint is noted. IMPRESSION: Cardiomegaly with central vascular congestion redemonstrated. Suspect CHF exacerbation. I ncreasing left basilar masslike consolidation noted.
--- NOTE | 2016-05-01 10:47 | P.PN ---
Subjective Principal diagnosis: acute septic and cardiogenic shock this is a 76-year-old female with history of multiple medical problems including severe LV dysfunction, chronic congestive heart failure, chronic atrial fibrillation, type 2 diabetes, morbid obesity, patient presented to the ER yesterday with mostly symptoms of increased shortness of breath and cough. Patient was recently exposed to her who is presently hospitalized at [facility] with acute influenza infection. Upon evaluation in the ER, chest x-ray showed evidence of pulmonary edema, possibility of left lower lobe consolidation is not entirely ruled out, patient tested positive for influenza, patient was given fluid boluses in the ER because of hypotension she received about 2 L. Patient went on to develop worsening pulmonary edema she was placed on BiPAP, high FiO2 at 50%, and she was admitted to the intensive care unit. I evaluated the patient, she is presently on 30 g of norepinephrine, Iadded dobutamine, and I started the patient on a Lasix drip since her chest x-ray continues to show significant pulmonary edema, the left lower lobe showed consolidation, possibility of pneumonia in the left lower lobe is not entirely ruled out this could be a complication related to her acute influenza infection. I am not certain whether this is a picture of cardiogenic shock with hypotension, or this is a septic shock at this point. Patient will be treated for both empirically, hence she was given pressors, and antibiotics including aztreonam, Zithromax, and vancomycin. Patient was also placed on Tamiflu. Considering her overall poor clinical picture, I had the liberty of discussing the CODE STATUS with her and with her daughter, patient would like to be DO NOT RESUSCITATE CODE STATUS. A right radial arterial line was placed, and I was about to place a right IJ central line, however patient has been on Coumadin and her INR is relatively elevated hence I will hold on placement of a triple-lumen catheter at this point. Patient was reevaluated today on 05/01/2016, her peripheral IVs where lost overnight, and multiple attempts by [employer]AR[employer] to place another peripheral IV was unsuccessful. Patient had only 1 peripheral IV working, and levo fed was running through the peripheral IV. Patient's INR was elevated, hence she was given vitamin K but patient needed an emergency placement of a central line. Hence I chose to place a right femoral triple-lumen catheter in the right groin at least to be able to temp and I didn't case of the patient develops any bleeding. This was accomplished uneventfully, please refer to the operative report. Then I was able to place all the IVs through the central line in the right femoral vein.patient remains on BiPAP, chest x-ray continues to show cardiomegaly with central vascular congestion, left basilar opacity is noted, most likely is a consolidation, however the possibility of mass is not entirely ruled out. But felt to be less likely. I believe the findings in the left lower lobe are probably findings of pneumonia more so than findings of malignancy. Patient remains on Dobutrex, norepinephrine, Lasix drip which was held because of the peripheral IV access. But now we will place her back on Lasix drip.labs were reviewed today WBC count is 7.2 hemoglobin is 10.3 INR is 7.4 electrolytes are normal BUN is 45 creatinine is 2.10. Objective - Vital Signs Vital signs: Vital Signs Temp 98.3 F 05/01/16 04:00 Pulse 122 H 05/01/16 07:44 Resp 13 05/01/16 07:00 BP 63/52 05/01/16 04:00 Pulse Ox 100 05/01/16 07:00 Intake & Output 04/30/16 05/01/16 05/01/16 18:59 06:59 18:59 Intake Total 470 687.269 38 Output Total 305 435 30 Balance 165 252.269 8 Weight 136.078 kg 144.3 kg Intake: IV 220 220 20 Sodium Chloride 0.9% 1, 220 220 20 000 ml @ 20 mls/hr IV . Q24H [facility] Rx#:[id number] Intake, IV Titration 250 467.269 18 Amount Azithromycin 500 mg In 250 250 Sodium Chloride 0.9% 250 ml @ 125 mls/hr IVPB HS [facility] Rx#:[id number] DOBUTamine DRIP 500 mg In 48 8 Dextrose/Water 1 250ml. bag @ 2.5 MCG/KG/MIN 10.2 mls/hr IV .Q24H [facility] Rx#: [id number] Furosemide 250 mg In 60 10 Sodium Chloride 0.9% 225 ml @ 10 MG/HR 10 mls/hr IVP .Q24H [facility] Rx#: [id number] Norepinephrine 4 mg In 109.269 Sodium Chloride 0.9% 250 ml @ Titrate IV .Q0M [facility] Rx#:[id number] Output: Urine 305 435 30 Other: Voiding Method Indwelling Catheter Indwelling Catheter # Bowel Movements 0 ABP, PAP, CO, CI - Last Documented Arterial Blood Pressure 88/45 - Exam Physical Exam: Revealed a 76-year-old, morbidly obese, on BiPAP, in mild to moderate respiratory distress. HEENT:short obese neck is noted, narrow oropharynx.[Neck is supple.] [No neck masses.] [No thyromegaly.] [No JVD.] Chest: [diffuse rhonchi and crackles noted bilaterally. No wheezing.] Cardiac Exam: normal S1 and S2, positive S3 gallop, irregular rhythm, 2/6 systolic murmur throughout the precordium evidence of previous cardiac surgery noted. Abdomen: [morbidly obese,Soft, nontender, no megaly, no rebound, no guarding, normal bowel sounds.] Extremities: [No clubbing, 3+ bipedal edema, no cyanosis.] Neurological Exam: patient is lethargic, however she is arousable, and follows simple instructions. And she tends to fall asleep very easily. - Labs CBC & Chem 7: 05/01/16 04:30 05/01/16 04:30 Labs: Abnormal Lab Results - Last 24 Hours (Table) 04/30/16 05/01/16 05/01/16 Range/Units 18:36 04:30 04:30 RBC 3.17 L (3.80-5.40) m/uL Hgb 10.3 L (11.4-16.0) gm/dL MCV 107.2 H (80.0-100.0) fL MCHC 30.4 L (31.0-37.0) g/dL RDW 16.7 H (11.5-15.5) % Plt Count 129 L (150-450) k/uL Lymphocytes # (Manual) 0.4 L (1.0-4.8) k/uL PT 77.5 H (9.0-12.0) sec INR 7.5 H* (<1.1) Carbon Dioxide (22-30) mmol/L BUN (7-17) mg/dL Creatinine (0.52-1.04) mg/dL POC Glucose (mg/dL) 71 L (75-99) mg/dL Albumin (3.5-5.0) g/dL 05/01/16 05/01/16 Range/Units 04:30 06:15 RBC (3.80-5.40) m/uL Hgb (11.4-16.0) gm/dL MCV (80.0-100.0) fL MCHC (31.0-37.0) g/dL RDW (11.5-15.5) % Plt Count (150-450) k/uL Lymphocytes # (Manual) (1.0-4.8) k/uL PT 76.0 H (9.0-12.0) sec INR 7.4 H* (<1.1) Carbon Dioxide 21 L (22-30) mmol/L BUN 45 H (7-17) mg/dL Creatinine 2.10 H (0.52-1.04) mg/dL POC Glucose (mg/dL) (75-99) mg/dL Albumin 2.9 L (3.5-5.0) g/dL Microbiology - Last 24 Hours (Table) 04/30/16 05:25 Urine Culture - Preliminary Urine,Catheterized Assessment and Plan Plan: impression: 1 acute hypoxic respiratory failure, mostly secondary to acute pulmonary edema, congestive heart failure, systolic dysfunction. 2 acute influenza B infection, possibly complicated by left lower lobe pneumonia and sepsis. This could very well be a picture of septic shock however I feel it is mostly more of a presentation of cardiogenic shock, or possibly both septic and cardiogenic shock at the same time. 3 acute septic and cardiogenic shock as noted above. 4 multiple comorbidities including chronic atrial fibrillation, diabetes type 2 , hypertension, morbid obesity, history of aortic valve replacement, history of hyperlipidemia, history of degenerative joint disease, history of chronic cellulitis of both lower extremities, and history of chronic anemia. Recommendation: Patient will remain on BiPAP, remain on norepinephrine and on Dobutrex, the norepinephrine will be titrated if blood pressure improves with adding Dobutrex. Lasix drip 10 mg per hour was restarted antibiotics were also placed on board empirically since the chest x-ray is concerning for possible left lower lobe pneumonia and also the possibility of sepsis is not entirely ruled out. Right radial arterial line was placed. right femoral triple-lumen catheter was placed Patient will be placed on GI prophylaxis,no need for heparin at this point since the patient has significantly elevated INR CODE STATUS was discussed yesterday with the family and with the patient and patient is presently DO NOT RESUSCITATE, prognosis remains poor and guarded, critical care time is 55 minutes not including time placed on procedures. Time with Patient: Greater than 30
--- NOTE | 2016-05-01 11:47 | P.PN ---
Subjective Principal diagnosis: congestive heart failure this is a pleasant 76-year-old female patient with a past medical history significant for severe cardiomyopathy, chronic atrial fibrillation, morbid obesity, as well as multiple comorbid conditions who presented to the hospital with progressive dyspnea. She was diagnosed with congestive heart failure exacerbation secondary to systolic dysfunction. Beside that the patient was hypotensive. Currently the patient is on room air. She is still requiring vasopressors was dobutamine and Levophed. Beside that she is on Lasix IV. We are holding all kind of beta erma in view of the low blood pressure. Objective - Vital Signs Vital signs: Vital Signs Temp 98.1 F 05/01/16 08:00 Pulse 112 H 05/01/16 11:06 Resp 15 05/01/16 11:00 BP 100/60 05/01/16 10:00 Pulse Ox 100 05/01/16 11:00 Intake & Output 04/30/16 05/01/16 05/01/16 18:59 06:59 18:59 Intake Total 470 687.269 190 Output Total 305 435 145 Balance 165 252.269 45 Weight 136.078 kg 144.3 kg Intake: IV 220 220 100 Sodium Chloride 0.9% 1, 220 220 100 000 ml @ 20 mls/hr IV . Q24H [facility] Rx#:[id number] Intake, IV Titration 250 467.269 90 Amount Azithromycin 500 mg In 250 250 Sodium Chloride 0.9% 250 ml @ 125 mls/hr IVPB HS [facility] Rx#:[id number] DOBUTamine DRIP 500 mg In 48 40 Dextrose/Water 1 250ml. bag @ 2.5 MCG/KG/MIN 10.2 mls/hr IV .Q24H [facility] Rx#: [id number] Furosemide 250 mg In 60 50 Sodium Chloride 0.9% 225 ml @ 10 MG/HR 10 mls/hr IVP .Q24H [facility] Rx#: [id number] Norepinephrine 4 mg In 109.269 Sodium Chloride 0.9% 250 ml @ Titrate IV .Q0M [facility] Rx#:[id number] Output: Urine 305 435 145 Other: Voiding Method Indwelling Catheter Indwelling Catheter # Bowel Movements 0 ABP, PAP, CO, CI - Last Documented Arterial Blood Pressure 102/47 - Constitutional General appearance: Present: no acute distress - Respiratory Respiratory: bilateral: rhonchi, wheezing - Cardiovascular Rhythm: irregularly irregular Heart sounds: normal: S1, S2 Abnormal Heart Sounds: Present: systolic murmur - Labs CBC & Chem 7: 05/01/16 04:30 05/01/16 04:30 Labs: Abnormal Lab Results - Last 24 Hours (Table) 04/30/16 05/01/16 05/01/16 Range/Units 18:36 04:30 04:30 RBC 3.17 L (3.80-5.40) m/uL Hgb 10.3 L (11.4-16.0) gm/dL MCV 107.2 H (80.0-100.0) fL MCHC 30.4 L (31.0-37.0) g/dL RDW 16.7 H (11.5-15.5) % Plt Count 129 L (150-450) k/uL Lymphocytes # (Manual) 0.4 L (1.0-4.8) k/uL PT 77.5 H (9.0-12.0) sec INR 7.5 H* (<1.1) Carbon Dioxide (22-30) mmol/L BUN (7-17) mg/dL Creatinine (0.52-1.04) mg/dL POC Glucose (mg/dL) 71 L (75-99) mg/dL Albumin (3.5-5.0) g/dL 05/01/16 05/01/16 Range/Units 04:30 06:15 RBC (3.80-5.40) m/uL Hgb (11.4-16.0) gm/dL MCV (80.0-100.0) fL MCHC (31.0-37.0) g/dL RDW (11.5-15.5) % Plt Count (150-450) k/uL Lymphocytes # (Manual) (1.0-4.8) k/uL PT 76.0 H (9.0-12.0) sec INR 7.4 H* (<1.1) Carbon Dioxide 21 L (22-30) mmol/L BUN 45 H (7-17) mg/dL Creatinine 2.10 H (0.52-1.04) mg/dL POC Glucose (mg/dL) (75-99) mg/dL Albumin 2.9 L (3.5-5.0) g/dL Microbiology - Last 24 Hours (Table) 04/30/16 05:25 Urine Culture - Preliminary Urine,Catheterized Assessment and Plan Plan: assessment Acute on chronic respiratory failure Congestive heart failure exacerbation secondary to systolic dysfunction Chronic atrial fibrillation was controlled heart rate Morbid obesity Multiple comorbid conditions Plan Continue Lasix IV Hold any kind of beta erma Continue supporting the blood pressure with vasopressors Monitor the kidney function and electrolytes Follow-up with the patient
[2016-05-01 12:12] LABS: Glucose,Whole Blood 72 mg/dL (75-99)
[2016-05-01 12:12] LABS: Glucose,Whole Blood 64 mg/dL (75-99)
[2016-05-01] MEDS: OSELTAMIVIR 60 MG/10 ML ORAL SYRINGE PO SCH (12:56)
[2016-05-01] MEDS: MAGNESIUM OXIDE 400 MG TAB PO SCH (12:57)
[2016-05-01] MEDS: ASPIRIN 325 MG TAB PO SCH (12:57)
[2016-05-01] MEDS: ALLOPURINOL 300 MG TAB PO SCH (12:57)
[2016-05-01] MEDS: CHOLECALCIFEROL 1,000 UNIT TAB PO SCH (12:57)
[2016-05-01] MEDS: FUROSEMIDE 250 MG in SODIUM CHLORIDE 0.9% 225 ML IVP SCH (12:59)
[2016-05-01] MEDS: DOBUTamine DRIP 500 MG in DEXTROSE/WATER 1 250ML.BAG IV SCH (12:59)
[2016-05-01] MEDS ORDERED: VANCOMYCIN 2,000 MG in SODIUM CHLORIDE 0.9% 500 ML IVPB ONE (15:00)
[2016-05-01] MEDS ORDERED: NOREPINEPHRINE 16 MG in SODIUM CHLORIDE 0.9% 250 ML IV SCH (15:15)
[2016-05-01 16:13] LABS: Prothrombin Time >130.0 sec (9.0-12.0)
[2016-05-01 16:38] LABS: INR >10.0 (<1.1)
[2016-05-01] MEDS ORDERED: PHYTONADIONE 5 MG in SODIUM CHLORIDE 0.9% 50 ML IVPB STA (16:53)
[2016-05-01] MEDS: SODIUM CHLORIDE 0.9% 1,000 ML IV SCH (16:56)
[2016-05-01 17:03] LABS: Glucose,Whole Blood 127 mg/dL (75-99)
[2016-05-01 17:11] LABS: Anisocytosis Slight; CH 31.5; CHCM 29.8; HCT 32.7 % (34.0-46.0); HDW 2.74; HGB 10.2 gm/dL (11.4-16.0); Hypochromasia Marked; MCH 33.1 pg (25.0-35.0); MCHC 31.1 g/dL (31.0-37.0); MCV 106.4 fL (80.0-100.0); Macrocytosis Marked; Mean Platelet Volume 9.2; RBC 3.08 m/uL (3.80-5.40); RDW 17.1 % (11.5-15.5); WBC 12.7 k/uL (3.8-10.6)
--- NOTE | 2016-05-01 20:23 | PN ---
DATE OF SERVICE: 05/01/2016 This 76-year-old woman who was admitted with acute influenza B with bibasilar pneumonia also had CHF, acute exacerbation. The patient had possible sepsis as well as acute respiratory failure also. Patient is improving significantly. Patient also had renal failure. Multiple consultants are following the patient closely. The most recent chest x-ray ordered by Dr. Diaz showed cardiomegaly with central venous congestion. The INR is elevated. Patient received vitamin K. Past medical history reviewed. REVIEW OF SYSTEMS: CARDIOVASCULAR: As mentioned earlier. RESPIRATORY: As mentioned earlier. GI: No nausea, vomiting. : No dysuria. NERVOUS SYSTEM: No numbness or weakness. Current medications are reviewed and include: 1. Zyloprim 300 mg p.o. daily. 2. Aspirin 325 mg daily. 3. Lipitor 10 mg p.o. at bedtime. 4. Zithromax 500 mg IV daily. 5. Aztreonam 1 gram IV q.8. 6. Pulmicort 1 gram b.i.d. 7. Dobutamine drip. 8. Perforomist 20 mg b.i.d. 9. Lasix drip. 10. Dilaudid. 11. Atrovent. 12. Xopenex. 13. Solu-Medrol. 14. Morphine sulfate. 15. Nitrostat. 16. Levophed. 17. Tamiflu. 18. Protonix. 19. Vancomycin. PHYSICAL EXAMINATION: Patient is alert and oriented x2. Pulse 92, blood pressure 101/50, respiration 22, temperature normal. Pulse ox was 100% on BiPAP. Currently patient in on nasal cannula. HEENT: Conjunctivae normal. Oral mucosa moist. NECK: No jugular venous distention. No carotid bruit. No lymph node enlargement. CARDIOVASCULAR SYSTEM: S1 normal. S2 normal. No S3. No S4. RESPIRATORY SYSTEM: Breath sounds diminished at the bases. Bilateral scattered rhonchi and expiratory wheezing and crackles. ABDOMEN: Soft, obese, nontender. No mass palpable. LEGS: Bilateral leg edema. NERVOUS SYSTEM: Higher functions as mentioned earlier. Moves all 4 limbs. No focal motor or sensory deficit. LYMPHATICS: No lymph node palpable in neck, axillae or groin. SKIN: No ulcer, rash, bleeding. LABS: WBC 7.2, hemoglobin 10.3. Otherwise, INR is 7.5 and 7.4. Creatinine is 2.10. ASSESSMENT: 1. Acute influenza B with possible bilateral pneumonia with acute hypoxic respiratory failure, status post 100% partial non-rebreather mask and BiPAP with severe sepsis and septic shock and hypotension. 2. Congestive heart failure, acute exacerbation, with acute on chronic systolic dysfunction, ejection fraction 40% with possible hypertensive heart disease and cardiomyopathy. 3. Anemia, normocytic. 4. Change in mental status, metabolic encephalopathy, multifactorial, acute. 5. Thrombocytopenia. 6. Coumadin coagulopathy. 7. Obesity with body mass index of 48.5. 8. Bilateral leg cellulitis. 9. History of atrial fibrillation. 10. History of diabetes mellitus, type 2. 11. Hypertension. 12. Hyperlipidemia. 13. History of degenerative joint disease. 14. History of pneumonia. 15. History of cholecystectomy. 16. History of aortic valve replacement. 17. Remote history of nicotine dependence. 18. Increased creatinine with chronic kidney disease, stage III. 19. Increased creatinine; possible acute on chronic renal failure as well as possibly prerenal acute tubular necrosis. 20. NO CODE, NO CPR, NO VENT. RECOMMENDATIONS AND DISCUSSION: In this 76-year-old woman who presented with multiple complex medical issues, we will monitor the patient closely, continue the current medications, continue symptomatic treatment, continue with the broad-spectrum IV antibiotics, continue with the Lasix, continue with fluid/electrolyte management. Continue the rest of the medications. Follow the cultures. Will follow closely with Dr. Diaz. Urine culture showed Gram-negative bacilli. The patient is already on aztreonam with probably adequate coverage. Will continue to monitor. Prognosis guarded. Discussed with the family. Further recommendations to follow.
--- NOTE | 2016-05-01 20:27 | PCN ---
DATE OF PROCEDURE: PROCEDURE PERFORMED: Placement of a right femoral triple-lumen catheter. PREOPERATIVE DIAGNOSIS: Acute cardiogenic and septic shock, hypotension. Anesthesia used: 4 mL of 1% lidocaine. PROCEDURE: Patient was placed in a supine position. The right groin was prepared in a sterile fashion and drapes were applied. The area of the femoral vein was localized to by palpation, and the area was locally anesthetized with lidocaine. The right femoral vein was easily cannulated. A guidewire was placed, and a triple-lumen catheter was inserted over the guidewire, the guidewire was removed and good blood flow was noted in the 3 different ports of the triple-lumen catheter. The catheter was secured in place using 3-0 silk sutures. The procedure was well tolerated and no evidence of any immediate complications.
[2016-05-01 21:15] LABS: Glucose,Whole Blood 153 mg/dL (75-99)
[2016-05-01] MEDS: AZITHROMYCIN 500 MG in SODIUM CHLORIDE 0.9% 250 ML IVPB SCH (21:18)
[2016-05-02] MEDS: MORPHINE SULFATE 4 MG/ML SYRINGE IV PRN (01:30)
[2016-05-02] MEDS: AZTREONAM 1 GM in SODIUM CHLORIDE 0.9% 50 ML IVPB SCH ×4 (04:13→23:49)
[2016-05-02] MEDS: ATORVASTATIN 10 MG TAB PO SCH ×2 (04:13→21:44)
[2016-05-02] MEDS: HYDROmorphone 1 MG/ML 1 ML SYRINGE IVP PRN ×4 (04:16→23:21)
[2016-05-02 05:09] LABS: Anisocytosis Slight; CH 31.1; CHCM 29.1; HCT 32.8 % (34.0-46.0); HDW 2.67; HGB 9.8 gm/dL (11.4-16.0); Hypochromasia Marked; Immature Gran Flag Marked; MCH 32.1 pg (25.0-35.0); MCHC 29.8 g/dL (31.0-37.0); MCV 107.6 fL (80.0-100.0); Macrocytosis Marked; RBC 3.05 m/uL (3.80-5.40); RDW 16.9 % (11.5-15.5); WBC 12.1 k/uL (3.8-10.6)
[2016-05-02 05:15] LABS: INR 2.3 (<1.1); Prothrombin Time 22.4 sec (9.0-12.0)
[2016-05-02 05:30] LABS: Add Differential Manual Differential; Calcium 8.4 mg/dL (8.4-10.2); Magnesium 1.7 mg/dL (1.6-2.3); Phosphorous 4.1 mg/dL (2.5-4.5); Potassium 5.1 mmol/L (3.5-5.1)
[2016-05-02 05:34] LABS: Manual Review Performed; Nucleated Red Blood Cells 0 /100 WBC (0-0); Total Cells Counted 200
[2016-05-02 05:35] LABS: Ovalocytes Present
[2016-05-02] MEDS: methylPREDNISolone SOD SUCCI 40 MG/ML 1 ML VIAL IV SCH ×4 (06:13→23:49)
--- NOTE | 2016-05-02 07:42 | XR ---
EXAMINATION TYPE: XR chest 1V portable DATE OF EXAM: 05/02/2016 6:35 AM HISTORY: chf. REFERENCE: Previous study dated 05/01/2016. FINDINGS: There has been a midline sternotomy. The heart is enlarged. There is vascular congestion an d worsening pulmonary edema. There is a left effusion. IMPRESSION: WORSENING CHANGES OF PULMONARY EDEMA.
[2016-05-02 08:00] LABS: Glucose,Whole Blood 158 mg/dL (75-99)
[2016-05-02] MEDS: INSULIN LISPRO (humaLOG) 300 UNIT/3 ML VIAL SQ SCH ×4 (08:33→21:53)
[2016-05-02] MEDS: BUDESONIDE 1 MG/2 ML NEBU INHALATION SCH ×2 (09:01→19:43)
[2016-05-02] MEDS: IPRATROPIUM 0.5 MG/2.5 ML NEBU INHALATION SCH ×4 (09:01→19:43)
[2016-05-02] MEDS: LEVALBUTEROL NEB (CONC) 1.25 MG/0.5 ML AMP INHALATION SCH ×4 (09:01→19:43)
[2016-05-02] MEDS: FORMOTEROL FUMARATE 20 MCG/2 ML NEBU INHALATION SCH ×2 (09:01→19:43)
--- NOTE | 2016-05-02 11:06 | P.PN ---
Subjective Principal diagnosis: acute septic and cardiogenic shock this is a 76-year-old female with history of multiple medical problems including severe LV dysfunction, chronic congestive heart failure, chronic atrial fibrillation, type 2 diabetes, morbid obesity, patient presented to the ER yesterday with mostly symptoms of increased shortness of breath and cough. Patient was recently exposed to her who is presently hospitalized at [facility] with acute influenza infection. Upon evaluation in the ER, chest x-ray showed evidence of pulmonary edema, possibility of left lower lobe consolidation is not entirely ruled out, patient tested positive for influenza, patient was given fluid boluses in the ER because of hypotension she received about 2 L. Patient went on to develop worsening pulmonary edema she was placed on BiPAP, high FiO2 at 50%, and she was admitted to the intensive care unit. I evaluated the patient, she is presently on 30 g of norepinephrine, Iadded dobutamine, and I started the patient on a Lasix drip since her chest x-ray continues to show significant pulmonary edema, the left lower lobe showed consolidation, possibility of pneumonia in the left lower lobe is not entirely ruled out this could be a complication related to her acute influenza infection. I am not certain whether this is a picture of cardiogenic shock with hypotension, or this is a septic shock at this point. Patient will be treated for both empirically, hence she was given pressors, and antibiotics including aztreonam, Zithromax, and vancomycin. Patient was also placed on Tamiflu. Considering her overall poor clinical picture, I had the liberty of discussing the CODE STATUS with her and with her daughter, patient would like to be DO NOT RESUSCITATE CODE STATUS. A right radial arterial line was placed, and I was about to place a right IJ central line, however patient has been on Coumadin and her INR is relatively elevated hence I will hold on placement of a triple-lumen catheter at this point. Patient was reevaluated today on 05/01/2016, her peripheral IVs where lost overnight, and multiple attempts by ENVIRONMENTAL COMPLIANCE OFFICER to place another peripheral IV was unsuccessful. Patient had only 1 peripheral IV working, and levo fed was running through the peripheral IV. Patient's INR was elevated, hence she was given vitamin K but patient needed an emergency placement of a central line. Hence I chose to place a right femoral triple-lumen catheter in the right groin at least to be able to temp and I didn't case of the patient develops any bleeding. This was accomplished uneventfully, please refer to the operative report. Then I was able to place all the IVs through the central line in the right femoral vein.patient remains on BiPAP, chest x-ray continues to show cardiomegaly with central vascular congestion, left basilar opacity is noted, most likely is a consolidation, however the possibility of mass is not entirely ruled out. But felt to be less likely. I believe the findings in the left lower lobe are probably findings of pneumonia more so than findings of malignancy. Patient remains on Dobutrex, norepinephrine, Lasix drip which was held because of the peripheral IV access. But now we will place her back on Lasix drip.labs were reviewed today WBC count is 7.2 hemoglobin is 10.3 INR is 7.4 electrolytes are normal BUN is 45 creatinine is 2.10. Patient was reevaluated today on 05/02/2016, remains on multiple drips including Lasix drip at 10 mg per hour, dobutamine at 2.5 mcg/kg/m, and norepinephrine at 10 g. Blood pressure is marginal, urine output is also marginal roughly about 3 0 mL per hour. Chest x-ray continues to show evidence of interstitial edema and left lower lobe consolidation. Her urine came back positive for gram- negative bacilli. Patient remains on significant antibiotics including vancomycin, aztreonam, and Zithromax. Patient is lethargic but she is arousable , and she follows simple instructions. CBC showed WBC count of 12.1 hemoglobin is 9.8 INR is down to 2.3 basic metabolic profile is normal. BUN remains at 51 creatinine is 2.10 holding nicely. Blood cultures remain negative so far, and her urine is positive for gram-negative bacilli. Objective - Vital Signs Vital signs: Vital Signs Temp 97.4 F L 05/02/16 07:00 Pulse 113 H 05/02/16 10:00 Resp 22 05/02/16 10:00 BP 97/60 05/01/16 23:24 Pulse Ox 100 05/02/16 10:00 Intake & Output 05/01/16 05/02/16 05/02/16 18:59 06:59 18:59 Intake Total 1406.167 849.737 80 Output Total 420 435 70 Balance 986.167 414.737 10 Weight 145.8 kg Intake: IV 220 240 80 Sodium Chloride 0.9% 1, 220 240 80 000 ml @ 20 mls/hr IV . Q24H [facility] Rx#:[id number] Intake, IV Titration 1186.167 609.737 Amount Azithromycin 500 mg In 250 Sodium Chloride 0.9% 250 ml @ 125 mls/hr IVPB HS [facility] Rx#:[id number] Aztreonam 1 gm In Sodium 50 50 Chloride 0.9% 50 ml @ 100 mls/hr IVPB Q8HR [facility] Rx# :[id number] DOBUTamine DRIP 500 mg In 290 71.57 Dextrose/Water 1 250ml. bag @ 2.5 MCG/KG/MIN 10.2 mls/hr IV .Q24H [facility] Rx#: [id number] Furosemide 250 mg In 296.167 70.167 Sodium Chloride 0.9% 225 ml @ 10 MG/HR 10 mls/hr IVP .Q24H [facility] Rx#: [id number] Norepinephrine 16 mg In 168 Sodium Chloride 0.9% 250 ml @ Titrate IV .Q0M [facility] Rx#:[id number] Phytonadione 5 mg In 50 Sodium Chloride 0.9% 50 ml @ 100 mls/hr IVPB ONCE STA Rx#:[id number] Vancomycin 2,000 mg In 500 Sodium Chloride 0.9% 500 ml @ 167 mls/hr IVPB ONCE ONE Rx#:[id number] Output: Urine 420 435 70 Other: Voiding Method Indwelling Catheter Indwelling Catheter Indwelling Catheter # Bowel Movements 0 ABP, PAP, CO, CI - Last Documented Arterial Blood Pressure 90/48 - Exam Physical Exam: Revealed a 76-year-old, morbidly obese, intermittently on BiPAP, in mild to moderate respiratory distress. HEENT:short obese neck is noted, narrow oropharynx.[Neck is supple.] [No neck masses.] [No thyromegaly.] [No JVD.] Chest: [diffuse rhonchi and crackles noted bilaterally. No wheezing.] Cardiac Exam: normal S1 and S2, positive S3 gallop, irregular rhythm, 2/6 systolic murmur throughout the precordium evidence of previous cardiac surgery noted. Abdomen: [morbidly obese,Soft, nontender, no megaly, no rebound, no guarding, normal bowel sounds.] Extremities: [No clubbing, 3+ bipedal edema, no cyanosis.] Neurological Exam: patient is lethargic, however she is arousable, and follows simple instructions. And she tends to fall asleep very easily. - Labs CBC & Chem 7: 05/02/16 04:55 05/02/16 04:55 Labs: Abnormal Lab Results - Last 24 Hours (Table) 05/01/16 05/01/16 05/01/16 Range/Units 11:51 12:10 15:50 WBC (3.8-10.6) k/uL RBC (3.80-5.40) m/uL Hgb (11.4-16.0) gm/dL Hct (34.0-46.0) % MCV (80.0-100.0) fL MCHC (31.0-37.0) g/dL RDW (11.5-15.5) % Plt Count (150-450) k/uL Neutrophils # (Manual) (1.3-7.7) k/uL Lymphocytes # (Manual) (1.0-4.8) k/uL PT >130.0 H (9.0-12.0) sec INR >10.0 H* (<1.1) Carbon Dioxide (22-30) mmol/L BUN (7-17) mg/dL Creatinine (0.52-1.04) mg/dL Glucose (74-99) mg/dL POC Glucose (mg/dL) 64 L 72 L (75-99) mg/dL 05/01/16 05/01/16 05/01/16 Range/Units 17:00 17:01 21:13 WBC 12.7 H (3.8-10.6) k/uL RBC 3.08 L (3.80-5.40) m/uL Hgb 10.2 L (11.4-16.0) gm/dL Hct 32.7 L (34.0-46.0) % MCV 106.4 H (80.0-100.0) fL MCHC (31.0-37.0) g/dL RDW 17.1 H (11.5-15.5) % Plt Count 127 L (150-450) k/uL Neutrophils # (Manual) (1.3-7.7) k/uL Lymphocytes # (Manual) (1.0-4.8) k/uL PT (9.0-12.0) sec INR (<1.1) Carbon Dioxide (22-30) mmol/L BUN (7-17) mg/dL Creatinine (0.52-1.04) mg/dL Glucose (74-99) mg/dL POC Glucose (mg/dL) 127 H 153 H (75-99) mg/dL 05/02/16 05/02/16 05/02/16 Range/Units 04:55 04:55 04:55 WBC 12.1 H (3.8-10.6) k/uL RBC 3.05 L (3.80-5.40) m/uL Hgb 9.8 L (11.4-16.0) gm/dL Hct 32.8 L (34.0-46.0) % MCV 107.6 H (80.0-100.0) fL MCHC 29.8 L (31.0-37.0) g/dL RDW 16.9 H (11.5-15.5) % Plt Count 131 L (150-450) k/uL Neutrophils # (Manual) 11.0 H (1.3-7.7) k/uL Lymphocytes # (Manual) 0.5 L (1.0-4.8) k/uL PT 22.4 H (9.0-12.0) sec INR (<1.1) Carbon Dioxide 20 L (22-30) mmol/L BUN 51 H (7-17) mg/dL Creatinine 2.10 H (0.52-1.04) mg/dL Glucose 156 H (74-99) mg/dL POC Glucose (mg/dL) (75-99) mg/dL 05/02/16 Range/Units 07:57 WBC (3.8-10.6) k/uL RBC (3.80-5.40) m/uL Hgb (11.4-16.0) gm/dL Hct (34.0-46.0) % MCV (80.0-100.0) fL MCHC (31.0-37.0) g/dL RDW (11.5-15.5) % Plt Count (150-450) k/uL Neutrophils # (Manual) (1.3-7.7) k/uL Lymphocytes # (Manual) (1.0-4.8) k/uL PT (9.0-12.0) sec INR (<1.1) Carbon Dioxide (22-30) mmol/L BUN (7-17) mg/dL Creatinine (0.52-1.04) mg/dL Glucose (74-99) mg/dL POC Glucose (mg/dL) 158 H (75-99) mg/dL Microbiology - Last 24 Hours (Table) 04/30/16 05:25 Urine Culture - Preliminary Urine,Catheterized Gram Neg Bacilli Assessment and Plan Plan: impression: 1 acute hypoxic respiratory failure, mostly secondary to acute pulmonary edema, congestive heart failure, systolic dysfunction. 2 acute influenza B infection, possibly complicated by left lower lobe pneumonia and sepsis. This could very well be a picture of septic shock however I feel it is mostly more of a presentation of cardiogenic shock, or possibly both septic and cardiogenic shock at the same time. 3 acute septic and cardiogenic shock as noted above. 4 acute urinary tract infection secondary to gram-negative bacilli, final report is pending 5 multiple comorbidities including chronic atrial fibrillation, diabetes type 2 , hypertension, morbid obesity, history of aortic valve replacement, history of hyperlipidemia, history of degenerative joint disease, history of chronic cellulitis of both lower extremities, and history of chronic anemia. Recommendation: Patient will remain on BiPAP as needed, remain on norepinephrine and on Dobutrex, the norepinephrine will be titrated if blood pressure improves with adding Dobutrex. Lasix drip 10 mg per hour was restarted antibiotics were also placed on board empirically since the chest x- ray is concerning for possible left lower lobe pneumonia and also the possibility of sepsis is not entirely ruled out. Right radial arterial line was placed. right femoral triple-lumen catheter was placed Patient will be placed on GI prophylaxis,no need for heparin at this point since the patient has significantly elevated INR . prognosis remains poor and guarded, critical care time is 32minutes . Patient will remain in the ICU and in the next couple of days may have to address the issue of comfort care measures with the family and the patient does not show much improvement. Time with Patient: Greater than 30
[2016-05-02] MEDS ORDERED: VANCOMYCIN 2,000 MG in SODIUM CHLORIDE 0.9% 500 ML IVPB ONE (12:00)
[2016-05-02 12:25] LABS: Glucose,Whole Blood 143 mg/dL (75-99)
[2016-05-02] MEDS: FUROSEMIDE 250 MG in SODIUM CHLORIDE 0.9% 225 ML IVP SCH (12:49)
[2016-05-02] MEDS: DOBUTamine DRIP 500 MG in DEXTROSE/WATER 1 250ML.BAG IV SCH ×2 (12:49→14:39)
[2016-05-02] MEDS: BUMETANIDE 12 MG in DEXTROSE 5% IN WATER 192 ML IV SCH ×2 (14:38)
--- NOTE | 2016-05-02 15:20 | PN ---
DATE OF SERVICE: 05/02/2016 This patient's medical records are reviewed. Patient's condition remains poor. Her urine output is poor. The patient is being treated for acute respiratory distress for combination of pneumonia and congestive cardiac failure. Patient is quite lethargic. Her blood pressure is 90/60. First and second heart sounds are normal. Lung examination revealed bilateral scattered wheezes. Patient's urine output is 10 to 15 mL/h. Chest x-ray shows bilateral lung infiltrates. The patient's prognosis poor. She is NO CODE. We will try her on Bumex drip, 1 mg/hour, and continue the rest of the medications.
[2016-05-02] MEDS: CHOLECALCIFEROL 1,000 UNIT TAB PO SCH (16:50)
[2016-05-02] MEDS: PANTOPRAZOLE 40 MG TABLET PO SCH (16:50)
[2016-05-02] MEDS: MAGNESIUM OXIDE 400 MG TAB PO SCH (16:50)
[2016-05-02] MEDS: OSELTAMIVIR 60 MG/10 ML ORAL SYRINGE PO SCH (16:50)
[2016-05-02] MEDS: ASPIRIN 325 MG TAB PO SCH (16:50)
[2016-05-02] MEDS: ALLOPURINOL 300 MG TAB PO SCH (16:50)
[2016-05-02] MEDS: SODIUM CHLORIDE 0.9% 1,000 ML IV SCH (16:51)
[2016-05-02 17:08] LABS: Glucose,Whole Blood 150 mg/dL (75-99)
[2016-05-02 18:23] LABS: ABG Base Excess -5.3 mmol/L; ABG HCO3 20 mmol/L (21-25); ABG PCO2 45 mmHg (35-45); ABG PH 7.28 (7.35-7.45); ABG PO2 102 mmHg (83-108); ABG TCO2 22 mmol/L (19-24)
--- NOTE | 2016-05-02 20:59 | PN ---
DATE OF SERVICE: 05/02/2016 This 76-year-old woman who was admitted with influenza B and bibasilar pneumonia, also had CHF acute exacerbation. The patient also had features of sepsis. Yesterday, the patient's sensorium was much better, but today the patient has taken a turn for the worse. The patient is more confused. The patient is hypotensive. Patient is on Levophed drip. The patient was also on a dopamine drip. Patient is also on Lasix. The urine output is also marginal and the white count is 12.9, hemoglobin is 9.8. The creatinine has worsened up to 2.10. The patient is being closely monitored at this time. PAST MEDICAL HISTORY: Reviewed. Review of systems could not be taken because the patient is confused Current medications are reviewed and include: 1. Zyloprim 300 mg p.o. daily. 2. Aspirin 325 mg daily. 3. Lipitor 10 mg q.h.s. 4. Zithromax 500 mg daily. 5. Aztreonam 1 g q.8. 6. Pulmicort 1 mg daily. 7. Bumex drip 1 mg/h. 8. Vitamin D3 1000 daily. 9. Dobutamine drip. 10. Perforomist. 11. Dilaudid 0.4 mg q.4 p.r.n. 12. Atrovent. 13. Xopenex 1.25 q.i.d. 15. Solu-Medrol 40 IV q.8. 16. Zaroxolyn 5 mg p.o. daily. 17. Vancomycin. 18. Nitrostat. 19. Levophed. 20. Tamiflu. 21. Protonix. PHYSICAL EXAM: Patient is alert and oriented x2. Pulse is 116, blood pressure 97/52, respiration 26, temperature normal, pulse ox was 100% on a Ventimask. HEENT: Conjunctivae normal. Oral mucosa moist. NECK: No jugular venous distention. No carotid bruit. No lymph node enlargement. CARDIOVASCULAR SYSTEM: S1 and S2 muffled. No S3. No S4. RESPIRATORY SYSTEM: Breath sounds diminished at the bases. A few scattered rhonchi and crackles. Expiratory wheezing also present. ABDOMEN: Soft, obese, nontender. No mass palpable. LEGS: No edema. No swelling. NERVOUS SYSTEM: Diffusely weak. LABS: WBC 12.1, hemoglobin is 9.8. Otherwise, MCV 107.6 and INR is 2.3. Creatinine is 2.10. Accu-Cheks are 158. Vancomycin is 18.5. ASSESSMENT: 1. Acute influenza B with possible bilateral pneumonia with acute hypoxic respiratory failure with possible severe sepsis and septic shock and hypotension. 2. Status post bi-level positive airway pressure and nonrebreather mask, currently on Ventimask. 3. Congestive heart failure acute exacerbation with acute on chronic systolic dysfunction, ejection fraction 40% with possible hypertensive heart disease and cardiomyopathy. 4. Change in mental status, metabolic encephalopathy, multifactorial, acute. 5. Anemia, normocytic. 6. Thrombocytopenia. 7. Coumadin coagulopathy. 8. Obesity with body mass index of 48.5. 9. Bilateral leg cellulitis. 10. History of atrial fibrillation. 11. History of diabetes mellitus, type 2. 12. Hypertension. 13. Hyperlipidemia. 14. History of degenerative joint disease. 15. History of pneumonia. 16. History of cholecystectomy. 17. History of aortic valve replacement. 18. Remote history of nicotine dependence. 19. Increased creatinine with chronic kidney disease, stage 3. 20. Increased creatinine with possible acute on chronic renal failure as well as possibly prerenal acute tubular necrosis. 21. NO CODE, NO CARDIOPULMONARY RESUSCITATION, NO VENTILATOR. RECOMMENDATIONS AND DISCUSSION: In this 76-year-old woman who presented with multiple complex medical issues, will monitor the patient closely, continue the current medications, continue symptomatic treatment. The patient has worsening renal failure and respiratory status and change in mental status, also. Otherwise, will continue to monitor, continue with antibiotics, bronchodilators and oxygenation. Discussed with staff. Will closely monitor with Dr. Diaz, who is the plastic tool maker. Further recommendations to follow. MTDD
[2016-05-02] MEDS: AZITHROMYCIN 500 MG in SODIUM CHLORIDE 0.9% 250 ML IVPB SCH (21:48)
[2016-05-02 21:54] LABS: Glucose,Whole Blood 151 mg/dL (75-99)
[2016-05-03] MEDS: MORPHINE SULFATE 4 MG/ML SYRINGE IV PRN ×2 (00:28→04:57)
[2016-05-03] MEDS: BUMETANIDE 12 MG in DEXTROSE 5% IN WATER 192 ML IV SCH ×2 (01:48)
[2016-05-03] MEDS: DOBUTamine DRIP 500 MG in DEXTROSE/WATER 1 250ML.BAG IV SCH (01:48)
[2016-05-03] MEDS: HYDROmorphone 1 MG/ML 1 ML SYRINGE IVP PRN ×2 (03:04→06:14)
[2016-05-03 04:18] LABS: Calcium 8.9 mg/dL (8.4-10.2); Magnesium 1.9 mg/dL (1.6-2.3); Total Bilirubin 1.1 mg/dL (0.2-1.3); Total Protein 6.7 g/dL (6.3-8.2)
[2016-05-03 04:25] LABS: INR 1.6 (<1.1)
[2016-05-03 04:26] LABS: Anisocytosis Slight; Basophils % (A) 0 %; CH 31.1; Eosinophils % (A) 0 %; HCT 30.5 % (34.0-46.0); HDW 2.67; Hypochromasia Marked; Luc # (Auto) 0.13; Luc % (Auto) 1; Lymphocytes # (A) 0.4 k/uL (1.0-4.8); Lymphocytes % (A) 4 %; MCH 31.6 pg (25.0-35.0); MCHC 29.3 g/dL (31.0-37.0); MCV 107.8 fL (80.0-100.0); Macrocytosis Marked; Mean Platelet Volume 8.4; Monocytes # (A) 0.2 k/uL (0-1.0); Monocytes % (A) 2 %; Neutrophils # (A) 9.4 k/uL (1.3-7.7); Neutrophils % (A) 92 %; Prothrombin Time 15.3 sec (9.0-12.0); RBC 2.83 m/uL (3.80-5.40); RDW 16.9 % (11.5-15.5); WBC 10.2 k/uL (3.8-10.6); WBC (Perox) 10.84
[2016-05-03 04:33] LABS: Potassium 5.3 mmol/L (3.5-5.1)
[2016-05-03 07:26] LABS: Glucose,Whole Blood 134 mg/dL (75-99)
[2016-05-03] MEDS: BUDESONIDE 1 MG/2 ML NEBU INHALATION SCH (07:48)
[2016-05-03] MEDS: LEVALBUTEROL NEB (CONC) 1.25 MG/0.5 ML AMP INHALATION SCH (07:49)
[2016-05-03] MEDS: FORMOTEROL FUMARATE 20 MCG/2 ML NEBU INHALATION SCH (07:49)
[2016-05-03] MEDS: IPRATROPIUM 0.5 MG/2.5 ML NEBU INHALATION SCH (07:49)
[2016-05-03] MEDS: INSULIN LISPRO (humaLOG) 300 UNIT/3 ML VIAL SQ SCH (08:14)
[2016-05-03] MEDS: methylPREDNISolone SOD SUCCI 40 MG/ML 1 ML VIAL IV SCH (08:14)
[2016-05-03] MEDS ORDERED: FUROSEMIDE 10 MG/ML 10 ML VIAL IV STA (08:14)
[2016-05-03] MEDS: AZTREONAM 1 GM in SODIUM CHLORIDE 0.9% 50 ML IVPB SCH (08:18)
--- NOTE | 2016-05-03 08:33 | XR ---
EXAMINATION TYPE: XR chest 1V portable DATE OF EXAM: 05/03/2016 8:28 AM COMPARISON: Yesterday HISTORY: Short of breath TECHNIQUE: Single frontal view of the chest is obtained. FINDINGS: There is pulmonary edema. There are sternal wires. Heart appears enlarged. There are chest leads. IMPRESSION: Congestive heart failure with pulmonary edema. No change compared to yesterday.
[2016-05-03 08:41] LABS: Manual Review Performed
[2016-05-03] MEDS ORDERED: DEXMEDETOMIDINE 200 MCG in SODIUM CHLORIDE 0.9% 100 ML IV SCH (08:45)
[2016-05-03] MEDS ORDERED: METOLAZONE 5 MG TAB PO SCH (09:00)
[2016-05-03] MEDS: MORPHINE SULFATE (100 MG/2 ML) 100 MG in SODIUM CHLORIDE 0.9% 100 ML IV SCH ×2 (11:08→15:33)
--- NOTE | 2016-05-03 11:26 | P.PN ---
Subjective Principal diagnosis: acute septic and cardiogenic shock this is a 76-year-old female with history of multiple medical problems including severe LV dysfunction, chronic congestive heart failure, chronic atrial fibrillation, type 2 diabetes, morbid obesity, patient presented to the ER yesterday with mostly symptoms of increased shortness of breath and cough. Patient was recently exposed to her who is presently hospitalized at [facility] with acute influenza infection. Upon evaluation in the ER, chest x-ray showed evidence of pulmonary edema, possibility of left lower lobe consolidation is not entirely ruled out, patient tested positive for influenza, patient was given fluid boluses in the ER because of hypotension she received about 2 L. Patient went on to develop worsening pulmonary edema she was placed on BiPAP, high FiO2 at 50%, and she was admitted to the intensive care unit. I evaluated the patient, she is presently on 30 g of norepinephrine, Iadded dobutamine, and I started the patient on a Lasix drip since her chest x-ray continues to show significant pulmonary edema, the left lower lobe showed consolidation, possibility of pneumonia in the left lower lobe is not entirely ruled out this could be a complication related to her acute influenza infection. I am not certain whether this is a picture of cardiogenic shock with hypotension, or this is a septic shock at this point. Patient will be treated for both empirically, hence she was given pressors, and antibiotics including aztreonam, Zithromax, and vancomycin. Patient was also placed on Tamiflu. Considering her overall poor clinical picture, I had the liberty of discussing the CODE STATUS with her and with her daughter, patient would like to be DO NOT RESUSCITATE CODE STATUS. A right radial arterial line was placed, and I was about to place a right IJ central line, however patient has been on Coumadin and her INR is relatively elevated hence I will hold on placement of a triple-lumen catheter at this point. Patient was reevaluated today on 05/01/2016, her peripheral IVs where lost overnight, and multiple attempts by CHANNELING MACHINE OPERATOR to place another peripheral IV was unsuccessful. Patient had only 1 peripheral IV working, and levo fed was running through the peripheral IV. Patient's INR was elevated, hence she was given vitamin K but patient needed an emergency placement of a central line. Hence I chose to place a right femoral triple-lumen catheter in the right groin at least to be able to temp and I didn't case of the patient develops any bleeding. This was accomplished uneventfully, please refer to the operative report. Then I was able to place all the IVs through the central line in the right femoral vein.patient remains on BiPAP, chest x-ray continues to show cardiomegaly with central vascular congestion, left basilar opacity is noted, most likely is a consolidation, however the possibility of mass is not entirely ruled out. But felt to be less likely. I believe the findings in the left lower lobe are probably findings of pneumonia more so than findings of malignancy. Patient remains on Dobutrex, norepinephrine, Lasix drip which was held because of the peripheral IV access. But now we will place her back on Lasix drip.labs were reviewed today WBC count is 7.2 hemoglobin is 10.3 INR is 7.4 electrolytes are normal BUN is 45 creatinine is 2.10. Patient was reevaluated today on 05/02/2016, remains on multiple drips including Lasix drip at 10 mg per hour, dobutamine at 2.5 mcg/kg/m, and norepinephrine at 10 g. Blood pressure is marginal, urine output is also marginal roughly about 3 0 mL per hour. Chest x-ray continues to show evidence of interstitial edema and left lower lobe consolidation. Her urine came back positive for gram- negative bacilli. Patient remains on significant antibiotics including vancomycin, aztreonam, and Zithromax. Patient is lethargic but she is arousable , and she follows simple instructions. CBC showed WBC count of 12.1 hemoglobin is 9.8 INR is down to 2.3 basic metabolic profile is normal. BUN remains at 51 creatinine is 2.10 holding nicely. Blood cultures remain negative so far, and her urine is positive for gram-negative bacilli. Patient was reevaluated today on 05/03/2016, remains on Bumex drip, instead of Lasix, and it made no difference whatsoever. Patient is on dobutamine at 5 mcg/ kg/m, and on norepinephrine at 10 g. Remains basically oliguric, blood pressure seems to be better controlled, chest x-ray continues to show evidence of pulmonary edema and left lower lobe consolidation. Today I had a long discussion with the family, and they all wished comfort care measures and we will proceed as per her wishes and as per her family's wishes. Objective - Vital Signs Vital signs: Vital Signs Temp 98.3 F 05/03/16 04:00 Pulse 109 H 05/03/16 10:00 Resp 18 05/03/16 10:00 BP 97/60 05/01/16 23:24 Pulse Ox 99 05/03/16 10:00 Intake & Output 05/02/16 05/03/16 05/03/16 18:59 06:59 18:59 Intake Total 982.017 7499.184 106 Output Total 135 50 8 Balance 407.700 973.184 98 Weight 153 kg Intake: IV 240 240 80 Sodium Chloride 0.9% 1, 240 240 80 000 ml @ 20 mls/hr IV . Q24H [facility] Rx#:[id number] Intake, IV Titration 302.700 783.184 26 Amount Aztreonam 1 gm In Sodium 50 Chloride 0.9% 50 ml @ 100 mls/hr IVPB Q8HR MIK Rx# :[id number] Bumetanide 12 mg In 223.333 Dextrose 5% in Water 192 ml @ 1 MG/HR 20 mls/hr IV .Q12H MIK Rx#:[id number] DOBUTamine DRIP 500 mg In 134.533 Dextrose/Water 1 250ml. bag @ 2.5 MCG/KG/MIN 10.2 mls/hr IV .Q24H [facility] Rx#: [id number] DOBUTamine DRIP 500 mg In 243.851 Dextrose/Water 1 250ml. bag @ 5 MCG/KG/MIN 21.87 mls/hr IV .[id number] [facility]K Rx #:[id number] Dexmedetomidine 200 mcg 26 In Sodium Chloride 0.9% 100 ml @ 0.2 MCG/KG/HR 15 .6 mls/hr IV .Q6H33M MIK Rx#:[id number] Furosemide 250 mg In 168.167 Sodium Chloride 0.9% 225 ml @ 10 MG/HR 10 mls/hr IVP .Q24H MIK Rx#: [id number] Norepinephrine 16 mg In 266 Sodium Chloride 0.9% 250 ml @ Titrate IV .Q0M MIK Rx#:[id number] Output: Urine 135 50 8 Other: Voiding Method Indwelling Catheter Indwelling Catheter Indwelling Catheter # Bowel Movements 0 ABP, PAP, CO, CI - Last Documented Arterial Blood Pressure 99/56 - Exam Physical Exam: Revealed a 76-year-old, morbidly obese, intermittently on BiPAP, in mild to moderate respiratory distress. HEENT:short obese neck is noted, narrow oropharynx.[Neck is supple.] [No neck masses.] [No thyromegaly.] [No JVD.] Chest: [diffuse rhonchi and crackles noted bilaterally. No wheezing.] Cardiac Exam: normal S1 and S2, positive S3 gallop, irregular rhythm, 2/6 systolic murmur throughout the precordium evidence of previous cardiac surgery noted. Abdomen: [morbidly obese,Soft, nontender, no megaly, no rebound, no guarding, normal bowel sounds.] Extremities: [No clubbing, 3+ bipedal edema, no cyanosis.] Neurological Exam: patient is lethargic, however she is arousable, and follows simple instructions. And she tends to fall asleep very easily. - Labs CBC & Chem 7: 05/03/16 04:00 05/03/16 04:00 Labs: Abnormal Lab Results - Last 24 Hours (Table) 05/02/16 05/02/16 05/02/16 Range/Units 12:24 17:07 18:21 RBC (3.80-5.40) m/uL Hgb (11.4-16.0) gm/dL Hct (34.0-46.0) % MCV (80.0-100.0) fL MCHC (31.0-37.0) g/dL RDW (11.5-15.5) % Plt Count (150-450) k/uL Neutrophils # (1.3-7.7) k/uL Lymphocytes # (1.0-4.8) k/uL PT (9.0-12.0) sec ABG pH 7.28 L (7.35-7.45) ABG HCO3 20 L (21-25) mmol/L Potassium (3.5-5.1) mmol/L Carbon Dioxide (22-30) mmol/L BUN (7-17) mg/dL Creatinine (0.52-1.04) mg/dL Glucose (74-99) mg/dL POC Glucose (mg/dL) 143 H 150 H (75-99) mg/dL Albumin (3.5-5.0) g/dL 05/02/16 05/03/16 05/03/16 Range/Units 21:53 04:00 04:00 RBC 2.83 L (3.80-5.40) m/uL Hgb 9.0 L (11.4-16.0) gm/dL Hct 30.5 L (34.0-46.0) % MCV 107.8 H (80.0-100.0) fL MCHC 29.3 L (31.0-37.0) g/dL RDW 16.9 H (11.5-15.5) % Plt Count 124 L (150-450) k/uL Neutrophils # 9.4 H (1.3-7.7) k/uL Lymphocytes # 0.4 L (1.0-4.8) k/uL PT 15.3 H (9.0-12.0) sec ABG pH (7.35-7.45) ABG HCO3 (21-25) mmol/L Potassium (3.5-5.1) mmol/L Carbon Dioxide (22-30) mmol/L BUN (7-17) mg/dL Creatinine (0.52-1.04) mg/dL Glucose (74-99) mg/dL POC Glucose (mg/dL) 151 H (75-99) mg/dL Albumin (3.5-5.0) g/dL 05/03/16 05/03/16 Range/Units 04:00 07:22 RBC (3.80-5.40) m/uL Hgb (11.4-16.0) gm/dL Hct (34.0-46.0) % MCV (80.0-100.0) fL MCHC (31.0-37.0) g/dL RDW (11.5-15.5) % Plt Count (150-450) k/uL Neutrophils # (1.3-7.7) k/uL Lymphocytes # (1.0-4.8) k/uL PT (9.0-12.0) sec ABG pH (7.35-7.45) ABG HCO3 (21-25) mmol/L Potassium 5.3 H (3.5-5.1) mmol/L Carbon Dioxide 21 L (22-30) mmol/L BUN 59 H (7-17) mg/dL Creatinine 2.50 H (0.52-1.04) mg/dL Glucose 145 H (74-99) mg/dL POC Glucose (mg/dL) 134 H (75-99) mg/dL Albumin 3.3 L (3.5-5.0) g/dL Microbiology - Last 24 Hours (Table) 04/30/16 05:25 Urine Culture - Final Urine,Catheterized Citrobacter braakii Assessment and Plan Plan: impression: 1 acute hypoxic respiratory failure, mostly secondary to acute pulmonary edema, congestive heart failure, systolic dysfunction. 2 acute influenza B infection, possibly complicated by left lower lobe pneumonia and sepsis. This could very well be a picture of septic shock however I feel it is mostly more of a presentation of cardiogenic shock, or possibly both septic and cardiogenic shock at the same time. 3 acute septic and cardiogenic shock as noted above. 4 acute urinary tract infection secondary to gram-negative bacilli, final report is pending 5 multiple comorbidities including chronic atrial fibrillation, diabetes type 2 , hypertension, morbid obesity, history of aortic valve replacement, history of hyperlipidemia, history of degenerative joint disease, history of chronic cellulitis of both lower extremities, and history of chronic anemia. Recommendation: Considering the family's wishes and the patient's wishes as to go with comfort care measures, I will discontinue Dobutrex, discontinue norepinephrine, discontinue all antibiotics and Lasix drip, patient is presently on Precedex, and I plan to switch her to morphine drip, and likely transfer the patient to a private medical bed with comfort care measures only. Prognosis is definitely poor. Time with Patient: Greater than 30 (Critical care time is 35 minutes.)
[2016-05-03] MEDS: ALLOPURINOL 300 MG TAB PO SCH (11:37)
[2016-05-03] MEDS: ASPIRIN 325 MG TAB PO SCH (11:37)
[2016-05-03] MEDS: PANTOPRAZOLE 40 MG TABLET PO SCH (11:51)
[2016-05-03] MEDS: MAGNESIUM OXIDE 400 MG TAB PO SCH (11:51)
[2016-05-03] MEDS: CHOLECALCIFEROL 1,000 UNIT TAB PO SCH (11:51)
[2016-05-03] MEDS: OSELTAMIVIR 60 MG/10 ML ORAL SYRINGE PO SCH (11:51)
--- NOTE | 2016-05-03 18:35 | PN ---
DATE OF SERVICE: 05/03/2016 This is a 76-year-old woman who was admitted with acute influenza B. Also, had multiple complex medical issues including bilateral pneumonia, acute respiratory failure, and multiple medical issues. Patient was confused also. The patient was improving significantly, but took a turn for the worse and chest X-ray showed multiple abnormalities. Patient also seen by Dr. Diaz and Cardiology and case was discussed with the patient's family at this time. The comfort measures also suggested. Lab-mendoza, the patient also had worsening kidney failure 2.5 at this time. PAST MEDICAL HISTORY: Reviewed. REVIEW OF SYSTEM: Could not be taken, the patient is sedated. The current medication are reviewed and include: Zyloprim, aspirin, Lipitor, Zithromax, Pulmicort, aztreonam, vitamin D3, dobutamine, Lasix, Bumex. PHYSICAL EXAM: Pulse is 109, blood pressure 98/56, respirations 18, temperature is normal, pulse ox 99% on BiPAP 40%. HEENT: Conjunctivae normal. Oral mucosa moist. NECK: No jugular venous distention. No carotid bruit, no lymph node enlargement. CARDIOVASCULAR SYSTEM: S1, S2, muffled. RESPIRATORY: Breath sounds diminished at the bases. A few scattered rhonchi, no crackles. Respiratory wheezing also present. Abdomen is soft, nontender. EXTREMITIES: Legs no edema, no swelling. NERVOUS SYSTEM: Diffusely weak. LABS: Hemoglobin is 9. Other labs are noted. ASSESSMENT: 1. Acute influenza B with possible bilateral pneumonia with acute hypoxic respiratory failure with possible severe sepsis and septic shock and hypotension. 2. Status post bilevel BiPAP and as well as nonrebreather mask currently on BiPAP. 3. Congestive heart failure acute exacerbation with acute on chronic systolic dysfunction, ejection fraction of 40% with possible hypertension, heart disease and cardiomyopathy, with change in mental status, metabolic encephalopathy, multifactorial, acute. 4. Anemia, normocytic. 5. Thrombocytopenia. 6. Coumadin coagulopathy. 7. Obesity, with a body mass index of 48.5. 8. Bilateral leg cellulitis. 9. History of atrial fibrillation. 10. History of diabetes mellitus type 2. 11. Hypertension. 12. Hyperlipidemia. 13. History of degenerative joint disease. 14. History of pneumonia. 15. History of cholecystectomy. 16. History of aortic valve replacement. 17. Remote history nicotine dependence. 18. Increased creatinine with chronic kidney disease stage III. 19. Increased creatinine with possible of acute on chronic renal failure and kidney disease as well as acute prerenal acute tubular necrosis. 20. NO CODE, NO CARDIOPULMONARY RESUSCITATION, NO VENTILATOR. RECOMMENDATION AND DISCUSSION: In this 76-year-old woman who presented with multiple complex medical issues, has been monitored in the ICU for several days. The patient had multiple complications despite active medical treatment, the patient is just not improving. Dr. Diaz discussed the case at length with the family and currently we will continue with the comfort measures, morphine drip was noted, Ativan p.r.n., scopolamine patch and continue with the comfort measures. Prognosis guarded. Further recommendations to follow. Discussed with family. MICHAEL
[2016-05-04] MEDS: MORPHINE SULFATE (100 MG/2 ML) 100 MG in SODIUM CHLORIDE 0.9% 100 ML IV SCH ×3 (02:40→19:56)
[2016-05-04 08:48] VITALS: TEMP 96.2
[2016-05-04 10:04] VITALS: BMI 54.4
--- NOTE | 2016-05-04 20:00 | PN ---
This 76 -year-old woman who was admitted with acute influenza B with possibly bilateral pneumonia is on comfort measures at this time. Morphine is going at 10 per hour. The patient has some moaning sounds at this time. On exam, pulse 101. Blood pressure 50/33, respiratory rate 8. CHEST: Bilateral scattered rhonchi. ABDOMEN: Soft. CENTRAL NERVOUS SYSTEM: Diffusely weak. LABS: Not available. ASSESSMENT: 1. Acute influenza B with possible bilateral pneumonia with acute hypoxic respiratory failure with possible severe sepsis and septic shock and hypotension. 2. Status post bi-level BiPAP and as well as nonbreather mask currently on BIPAP. 3. Congestive heart failure acute exacerbation with chronic systolic dysfunction, ejection fraction of 40% with possible cardiomyopathy. 4. Change in mental status, acute metabolic encephalopathy multifactorial. 5. Anemia normocytic anemia of chronic disease. 6. Thrombocytopenia of undetermined etiology. 7. Coumadin coagulopathy. 8. Obesity with body mass index of 48.5. 9. Bilateral leg cellulitis. 10. History of atrial fibrillation. 11. History of Type 2 diabetes mellitus. 12. Hypertension, essential. 13. Hyperlipidemia. 14. History of degenerative joint disease. 15. History of pneumonia. 16. History of cholecystectomy. 17. History of aortic valve replacement. 18. History of nicotine dependence. 19. Increased kar chronic disease stage III with some element of acute on chronic renal failure as well as acute prerenal and acute tubular necrosis. 20. NO CODE, NO CPR, AND NO VENT. 21. COMFORT MEASURES. RECOMMENDATIONS AND DISCUSSION: In this 76 -year-old woman who presented with multiple complex medical issues, at this time, the patient is comfort measures. I recommend to titrate the Morphine to comfort. Continue the rest of the. Discussed with the family who understands and agrees. Discussed with staff. MICHAEL
[2016-05-04] MEDS: SODIUM CHLORIDE 0.9% 1,000 ML IV SCH ×2 (20:43→20:46)
[2016-05-04 23:07] VITALS: BP 87/51
[2016-05-05] MEDS: MORPHINE SULFATE (100 MG/2 ML) 100 MG in SODIUM CHLORIDE 0.9% 100 ML IV SCH ×5 (00:55→15:55)
[2016-05-05 11:22] VITALS: PULSE 97
[2016-05-05 16:17] VITALS: RESP 7
[2016-05-05] MEDS: SODIUM CHLORIDE 0.9% 1,000 ML IV SCH (16:49)
--- NOTE | 2016-05-05 17:18 | P.PN ---
Subjective Date of service 05/05 14. Progress Note being dictated for Dr. Baird. Interval history: This a 76-year-old female admitted with acute influenza B, bilateral pneumonia, hypoxic respiratory failure with severe sepsis, septic shock, hypotension, and multiple other medical issues. Continues on comfort care protocol. Maintained on morphine drip, recently increased for pain control. Currently appears comfortable. Family at bedside. Discussed pending hospice visit. Objective - Vital Signs Vital signs: Vital Signs Temp 96.2 F L 05/04/16 09:00 Pulse 97 05/05/16 07:45 Resp 10 L 05/05/16 07:45 BP 87/51 05/04/16 23:00 Pulse Ox 95 05/04/16 23:00 Intake & Output 05/04/16 05/05/16 05/05/16 18:59 06:59 18:59 Intake Total 204.000 524 96.9 Output Total 100 Balance 204.000 424 96.9 Weight 153 kg Intake: IV 320 Sodium Chloride 0.9% 1, 320 000 ml @ 20 mls/hr IV . Q24H [facility] Rx#:[id number] Intake, IV Titration 204.000 204 96.9 Amount Morphine Sulfate 100 mg 204.000 204 96.9 In Sodium Chloride 0.9% 100 ml @ 1 MG/HR 1.02 mls /hr IV .Q24H [facility] Rx#: [id number] Output: Urine 100 Other: Voiding Method Indwelling Catheter Indwelling Catheter ABP, PAP, CO, CI - Last Documented Arterial Blood Pressure 59/34 - Exam PHYSICAL EXAM: GENERAL: Lying in bed, appears comfortable, minimally responsive RESPIRATORY EFFORT: Increased at times, currently controlled LUNGS: [Scattered rhonchi] - Labs CBC & Chem 7: 05/03/16 04:00 05/03/16 04:00 Assessment and Plan Plan: 1. Acute influenza. He with bilateral pneumonia with acute hypoxic respiratory failure, severe sepsis, possible septic shock with hypotension. 2. [Status post BiPAP, status post nonrebreather]. 3. [Acute on chronic congestive heart failure exacerbation, systolic dysfunction , EF 40%, possible cardiomyopathy]. 4. [Change in mental status with Acute embolic encephalopathy, multifactorial]. 5. [Anemia, normocytic, of chronic disease]. 6. [Thrombocytopenia undetermined etiology]. 7. [Coumadin coagulopathy]. 8. Obesity, BMI 54.4 9. Bilateral leg cellulitis 10. Chronic atrial fibrillation 11. Diabetes mellitus type 2 12. Essential hypertension 13. Hyperlipidemia 14. Degenerative joint disease 15. History of nicotine dependence 16. Acute on chronic kidney disease, stage III, acute prerenal and acute tubular necrosis 16. No Code, No CPR, No Vent 17. Comfort Care. Plan: Continue on comfort care pathway. Titrate morphine to comfort. Hospice consult in place pending. Potential GIP. Family updated on plan of care, questions and concerns addressed. Support given. The impression and plan of care has been dictated as directed. : I performed a H&P examination of this patient and discussed the same with the dictator. I agree with the dictator's note. Any additional findings/opinions/ etc. will be noted.
== END 2016-05-05 17:28 | disposition hospice, inpatient (51) | DRG 871 ==
LOC: EC 15:34 → 6SEL 17:49 → 6ICU 04-30 03:49 → 4MS4W 05-04 20:10
PROVIDERS: ADMIT Hospitalist; ATTEND Hospitalist
PROC: 03HY32Z Insertion of Monitoring Device into Upper Artery, Percutaneous Approach (ICD-10-PCS; principal; 2016-04-30)
PROC: 4A133B1 Monitoring of Arterial Pressure, Peripheral, Percutaneous Approach (ICD-10-PCS; 2016-04-30)
PROC: 4A133J1 Monitoring of Arterial Pulse, Peripheral, Percutaneous Approach (ICD-10-PCS; 2016-04-30)
PROC: 06HM33Z Insertion of Infusion Device into Right Femoral Vein, Percutaneous Approach (ICD-10-PCS; 2016-04-30)
DX: A41.89 Other specified sepsis (principal); J96.21 Acute and chronic respiratory failure with hypoxia; N17.0 Acute kidney failure with tubular necrosis; I50.23 Acute on chronic systolic (congestive) heart failure; G93.41 Metabolic encephalopathy; R57.0 Cardiogenic shock; R65.21 Severe sepsis with septic shock; J10.00 Influenza due to other identified influenza virus with unspecified type of pneumonia; I42.9 Cardiomyopathy, unspecified; I13.0 Hypertensive heart and chronic kidney disease with heart failure and stage 1 through stage 4 chronic kidney disease, or unspecified chronic kidney disease; L03.115 Cellulitis of right lower limb; Z68.43 Body mass index [BMI] 50.0-59.9, adult; L03.116 Cellulitis of left lower limb; N39.0 Urinary tract infection, site not specified; E66.01 Morbid (severe) obesity due to excess calories; E11.22 Type 2 diabetes mellitus with diabetic chronic kidney disease; D69.6 Thrombocytopenia, unspecified; I48.2 Chronic atrial fibrillation; I34.0 Nonrheumatic mitral (valve) insufficiency; Z51.5 Encounter for palliative care; Z66 Do not resuscitate; N18.3 Chronic kidney disease, stage 3 (moderate); D53.9 Nutritional anemia, unspecified; D63.8 Anemia in other chronic diseases classified elsewhere; E78.5 Hyperlipidemia, unspecified; R79.1 Abnormal coagulation profile; T45.515A Adverse effect of anticoagulants, initial encounter; M19.91 Primary osteoarthritis, unspecified site; Z87.01 Personal history of pneumonia (recurrent); Z87.891 Personal history of nicotine dependence; Z88.0 Allergy status to penicillin; Z90.49 Acquired absence of other specified parts of digestive tract; Z95.2 Presence of prosthetic heart valve; Z71.3 Dietary counseling and surveillance; Z79.01 Long term (current) use of anticoagulants; Z79.82 Long term (current) use of aspirin; Z79.899 Other long term (current) drug therapy
CPT/HCPCS: 36415; 71010; 80048; 80053; 80061; 80202; 81001; 82550; 82553; 82805; 83036; 83605; 83735; 83880; 84100; 84484; 85025; 85027; 85610; 85730; 87040; 87077; 87086; 87186; 87502; 93005; 93306; 94640; 94660; 96361; 96374; 96375; 99291

== ENCOUNTER 2016-05-05 17:36 | Inpatient (IN) | payer OTHER ==
[2016-05-05 17:51] VITALS: BMI 54.4
[2016-05-05] MEDS ORDERED: LORazepam 2 MG/ML SYRINGE IV PRN (18:00)
[2016-05-05] MEDS: MORPHINE SULFATE (100 MG/2 ML) 100 MG in SODIUM CHLORIDE 0.9% 100 ML IV SCH ×2 (18:54→22:01)
[2016-05-05] MEDS: SODIUM CHLORIDE 0.9% 1,000 ML IV SCH (18:57)
[2016-05-06] MEDS: MORPHINE SULFATE (100 MG/2 ML) 100 MG in SODIUM CHLORIDE 0.9% 100 ML IV SCH ×9 (01:05→23:56)
[2016-05-06] MEDS ORDERED: SCOPOLAMINE 1.5MG/72HR PATCH TRANSDERM STA (09:50)
--- NOTE | 2016-05-06 17:33 | P.HPIM ---
History of Present Illness H&P Date: 05/06/16 Chief Complaint: Hospice GIP Date of service 05/06/2016. H&P/note dictated for Dr. Baird Interval history:This is a 76-year-old female admitted with acute influenza B, bilateral pneumonia, hypoxic respiratory failure with severe sepsis, septic shock, hypotension, and multiple other medical issues. Condition continued to decline and patient paid made comfort care. Further transitioned to hospice, [facility] as per family's wishes. Maintained on morphine drip, recently increased for pain control. Currently appears comfortable. Family at bedside. Review of Systems N/A Past Medical History Past Medical History: Atrial Fibrillation, Heart Failure, Diabetes Mellitus, Hyperlipidemia, Hypertension, Osteoarthritis (OA), Pneumonia History of Any Multi-Drug Resistant Organisms: None Reported Past Surgical History: Cholecystectomy, Tonsillectomy Additional Past Surgical History / Comment(s): aortic valve replacement Past Anesthesia/Blood Transfusion Reactions: No Reported Reaction Past Psychological History: No Psychological Hx Reported Smoking Status: Former smoker Past Alcohol Use History: None Reported Past Drug Use History: None Reported - Past Family History Father Family Medical History: Myocardial Infarction ([place]) Medications and Allergies Home Medications Medication Instructions Recorded Confirmed Type Allopurinol [Zyloprim] 300 mg PO DAILY 02/26/16 05/05/16 History Atorvastatin [Lipitor] 10 mg PO HS 02/26/16 05/05/16 History Carvedilol [Coreg] 12.5 mg PO BID 02/26/16 05/05/16 History Cholecalciferol [Vitamin D3] 1,000 unit PO DAILY 02/26/16 05/05/16 History Ferrous Sulfate [Iron (65 MG 325 mg PO DAILY 02/26/16 05/05/16 History Elemental)] [place]-3 Fatty Acids/Fish Oil [Fish 1 cap PO DAILY 02/26/16 05/05/16 History Oil 1,000 mg Softgel] Warfarin [Coumadin] 5 mg PO HS 02/26/16 05/05/16 History Oseltamivir [Tamiflu] 75 mg PO BID 04/29/16 05/05/16 History Allergies Allergy/AdvReac Type Severity Reaction Status Date / Time Penicillins Allergy Anaphylaxis Verified 04/29/16 16:30 Quinolones AdvReac Nausea & Verified 04/29/16 16:30 Vomiting Physical Exam Vitals: Vital Signs Resp 05/06/16 14:07 18 05/06/16 08:00 12 05/06/16 06:30 12 05/05/16 18:58 6 L 05/05/16 17:52 6 L 05/05/16 17:41 6 L Intake and Output 05/06/16 05/06/16 05/06/16 06:59 14:59 22:59 Intake Total 457.024 294.44 Output Total 0 Balance 457.024 294.44 Intake: Intake, IV Titration 457.024 294.44 Amount Morphine Sulfate 100 mg 297.024 294.44 In Sodium Chloride 0.9% 100 ml @ 25 MG/HR 25.5 mls/hr IV .Q4H MIK Rx#: [id number] Sodium Chloride 0.9% 1, 160 000 ml @ 20 mls/hr IV . Q24H MIK Rx#:[id number] Output: Urine 0 Stool 0 Other: Voiding Method Indwelling Catheter # Voids 0 GENERAL: Lying in bed, appears comfortable, unresponsive RESPIRATORY EFFORT: controlled LUNGS: [Scattered rhonchi throughout] Thrombosis Risk Factor Assmnt - Choose All That Apply Any of the Below Risk Factors Present?: No Other Risk Factors: No Thrombosis Risk Factor Assessment Level: Very Low Risk Assessment and Plan Plan: 1. Acute influenza. He with bilateral pneumonia with acute hypoxic respiratory failure, severe sepsis, possible septic shock with hypotension. 2. [Status post BiPAP, status post nonrebreather]. 3. [Acute on chronic congestive heart failure exacerbation, systolic dysfunction , EF 40%, possible cardiomyopathy]. 4. [Change in mental status with Acute embolic encephalopathy, multifactorial]. 5. [Anemia, normocytic, of chronic disease]. 6. [Thrombocytopenia undetermined etiology]. 7. [Coumadin coagulopathy]. 8. Obesity, BMI 54.4 9. Bilateral leg cellulitis 10. Chronic atrial fibrillation 11. Diabetes mellitus type 2 12. Essential hypertension 13. Hyperlipidemia 14. Degenerative joint disease 15. History of nicotine dependence 16. Acute on chronic kidney disease, stage III, acute prerenal and acute tubular necrosis 16. No Code, No CPR, No Vent 17. Comfort Care, now hospice GIP. Plan: Continue on comfort care meds as per hospice GIP. Family at bedside, questions and concerns addressed, support given. The impression and plan of care has been dictated as directed. : I performed a H&P examination of this patient and discussed the same with the dictator. I agree with the dictator's note. Any additional findings/opinions/ etc. will be noted.
[2016-05-06] MEDS: SODIUM CHLORIDE 0.9% 1,000 ML IV SCH (18:41)
[2016-05-07 02:24] VITALS: RESP 12
--- NOTE | 2016-05-08 09:58 | DS ---
DATE OF ADMISSION: 05/05/2016 DATE OF DISCHARGE: 05/07/2016 This patient is a 76-year-old admitted with septic shock and bilateral pneumonia and acute hypoxic respiratory failure. Patient was made hospice before I even picked up the service. Patient was on hospice when I evaluated the patient and patient earlier today. Please refer to the nursing documentation for exact time of . Please refer to my nurse practitioner's dictation from yesterday for further details of hospital course. Preliminary cause of is septic shock secondary to bilateral pneumonia.
== END 2016-05-07 04:00 | disposition expired | DRG 871 ==
LOC: 4MS4W 17:36
PROVIDERS: ADMIT Hospitalist; ATTEND Hospitalist
DX: A41.89 Other specified sepsis (principal); J96.01 Acute respiratory failure with hypoxia; N17.0 Acute kidney failure with tubular necrosis; R65.21 Severe sepsis with septic shock; G93.40 Encephalopathy, unspecified; I50.23 Acute on chronic systolic (congestive) heart failure; I43 Cardiomyopathy in diseases classified elsewhere; J10.00 Influenza due to other identified influenza virus with unspecified type of pneumonia; Z66 Do not resuscitate; Z51.5 Encounter for palliative care; I13.0 Hypertensive heart and chronic kidney disease with heart failure and stage 1 through stage 4 chronic kidney disease, or unspecified chronic kidney disease; Z68.43 Body mass index [BMI] 50.0-59.9, adult; L03.115 Cellulitis of right lower limb; L03.116 Cellulitis of left lower limb; D69.6 Thrombocytopenia, unspecified; I48.2 Chronic atrial fibrillation; E11.22 Type 2 diabetes mellitus with diabetic chronic kidney disease; D63.8 Anemia in other chronic diseases classified elsewhere; N18.3 Chronic kidney disease, stage 3 (moderate); R79.1 Abnormal coagulation profile; T45.515A Adverse effect of anticoagulants, initial encounter; E66.9 Obesity, unspecified; E78.5 Hyperlipidemia, unspecified; M19.91 Primary osteoarthritis, unspecified site; Z87.891 Personal history of nicotine dependence; Z95.2 Presence of prosthetic heart valve; Z79.01 Long term (current) use of anticoagulants; Z79.899 Other long term (current) drug therapy; Z79.82 Long term (current) use of aspirin